=== PATIENT | male | born 1950 | race Caucasian/White ===

== ENCOUNTER 2016-06-04 18:50 | Inpatient (IN) | payer MEDICARE, OTHER ==
[~2016-06-04] VITALS: Ht 165.1 cm; Wt 49.9 kg
[2016-06-04] MEDS ORDERED: ALBUTEROL FS 2.5 MG/3 ML VIAL.NEB NEB ONE (19:00)
[2016-06-04] MEDS ORDERED: Magnesium 1GM/D5W 100ML PREMIX 200 ML IV ONE ×2 (19:05→19:31)
[2016-06-04] MEDS ORDERED: DEXAMETHASONE SOD PHOSPHATE 10 MG/ML VIAL ONE (19:19)
[2016-06-04] MEDS ORDERED: IV SET PRIMARY 1 EA INFUS.SET MC ONE ×2 (19:20→19:31)
[2016-06-04] MEDS ORDERED: IV NS 0.9% 2,000 ML ONE (19:20)
[2016-06-04] MEDS ORDERED: ALBUTEROL FS 2.5 MG/3 ML VIAL.NEB ONE (19:23)
[2016-06-04 19:29] LABS: ANION GAP 17 (5-14); CALCIUM, SERUM 8.4 mg/dL (8.5-10.1); CARBON DIOXIDE 23 mmol/L (21-32); CHLORIDE 87 mmol/L (98-107); CREATININE 1.2 mg/dL (0.6-1.3); GFR 61 mL/min (>60); GLUCOSE 215 mg/dL (74-106); POTASSIUM 3.8 mmol/L (3.5-5.1); SODIUM SERUM 123 mmol/L (136-145); UREA NITROGEN, BLOOD 14 mg/dL (7-18)
[2016-06-04] MEDS ORDERED: IPRATROPIUM NEB FS 0.5 MG/2.5 ML AMPUL.NEB NEB ONE (19:30)
[2016-06-04] MEDS ORDERED: IV NS 0.9% 1,000 ML BAG IV ONE ×2 (19:30)
[2016-06-04] MEDS ORDERED: DEXAMETHASONE SOD PHOSPHATE 10 MG/ML VIAL IV ONE (19:30)
[2016-06-04] MEDS ORDERED: ONDANSETRON HCL/PF 4 MG/2 ML VIAL ONE (19:31)
[2016-06-04] MEDS ORDERED: MORPHINE SULFATE INJ 4 MG/ML DISP.SYRIN ONE ×2 (19:31→19:51)
[2016-06-04] MEDS ORDERED: IPRATROPIUM NEB FS 0.5 MG/2.5 ML AMPUL.NEB ONE (19:32)
[2016-06-04 19:37] LABS: TROPONIN I 0.031 ng/mL (0.00-0.056)
[2016-06-04 19:41] LABS: BASOPHILS # (AUTO) 0.1 /CMM (0.0-0.2); BASOPHILS % (AUTO) 0.4 % (0.0-2.0); DIFF TOTAL % 100 %; EOSINOPHILS # (AUTO) 0.1 /CMM (0.0-0.7); EOSINOPHILS % (AUTO) 0.5 % (0.0-6.0); HEMATOCRIT 37 % (39-51); HEMOGLOBIN 12.3 g/dL (13.5-17.5); LYMPHOCYTES # (AUTO) 0.8 /CMM (0.8-4.8); LYMPHOCYTES % (AUTO) 3.4 % (20.0-44.0); MEAN CORPUSCULAR HEMOGLOBIN 29 PG (26.0-33.0); MEAN CORPUSCULAR HGB CONC 33 g/dl (31.0-36.0); MEAN CORPUSCULAR VOLUME 86 fL (80-96); MONOCYTES % (AUTO) 4.2 % (2.0-12.0); NEUTROPHILS # (AUTO) 21.9 /CMM (1.8-8.9); NEUTROPHILS % (AUTO) 91.5 % (43.0-81.0); PLATELET COUNT (AUTO) 350 /CMM (150-450); RED BLOOD CELL COUNT(AUTO) 4.28 MIL/uL (4.5-6.0); WHITE BLOOD COUNT (AUTO) 23.9 K/uL (4.3-11.0)
[2016-06-04 19:46] LABS: INR 1.14 (0.87-1.13); PROTHROMBIN TIME 12.3 SECS (9.5-12.7)
[2016-06-04] MEDS ORDERED: ONDANSETRON HCL/PF 4 MG/2 ML VIAL IV ONE (20:00)
[2016-06-04] MEDS ORDERED: MORPHINE SULFATE INJ 2 MG/ML DISP.SYRIN IV ONE (20:00)
[2016-06-04] MEDS ORDERED: MORPHINE SULFATE INJ 4 MG/ML DISP.SYRIN IV ONE (20:00)
[2016-06-04 20:01] LABS: LACTIC ACID 5.6 mmol/L (0.4-2.0)
[2016-06-04 20:09] LABS: *LACTIC ACID REFLEX FLAG YES
[2016-06-04] MEDS ORDERED: PIPERACILLIN /TAZOBACTAM 3.375 G in IV D5W 50 ML IV ONE (21:00)
[2016-06-04] MEDS ORDERED: PIPERACILLIN /TAZOBACTAM 3.375 G VIAL IV ONE (21:07)
[2016-06-04] MEDS ORDERED: IV SET PRIMARY PUMP SET 1 EA INFUS.SET MC ONE ×2 (21:07→23:11)
[2016-06-04] MEDS ORDERED: IV D5W 50 ML IV ONE (21:07)
[2016-06-04 21:26] LABS: KETONES,URINE NEGATIVE (NEGATIVE); LEUKOCYTE ESTERASE ,URINE NEGATIVE (NEGATIVE)
[2016-06-04 21:28] LABS: BILIRUBIN,DIRECT 0.2 mg/dL (0.0-0.2); BILIRUBIN,TOTAL 0.5 mg/dL (0.2-1.0)
[2016-06-04] MEDS ORDERED: ALBUTEROL FS 2.5 MG/0.5 ML VIAL.NEB NEB ONE (21:30)
[2016-06-04] MEDS ORDERED: MORPHINE SULFATE INJ 4 MG/ML DISP.SYRIN IV PRN (21:30)
[2016-06-04 21:34] LABS: ABG BASE EXCESS -6.8 mmol/L; ABG HCO3 20.2 mmol/L; ABG PCO2 46.4 mmHg (35.0-45.0); ABG PH 7.256 (7.350-7.450); ABG PO2 32.4 mmHg (75.0-100.0); ABG TOTAL HEMOGLOBIN 11.8 G/dL (13.5-18.0); ALLEN TEST Pass; O2Hb 46.1 % (94.0-97.0)
[2016-06-04 21:38] LABS: ADD UA MICROSCOPIC YES
[2016-06-04 21:41] LABS: CANNABINOID, URINE NEGATIVE (NEGATIVE); PHENCYCLIDINE SCREEN,URINE NEGATIVE (NEGATIVE)
[2016-06-04 21:42] LABS: ADD URINE CULTURE YES; HYALINE CASTS, URINE Rare /LPF (None Seen); WBC,URINE 0-2 /HPF (0-3)
[2016-06-04 21:55] VITALS: BP 97/49
[2016-06-04] MEDS ORDERED: IV LR 1000 ML 1,000 ML IV ONE ×2 (22:00→23:30)
[2016-06-04] MEDS ORDERED: ALBUTEROL FS 2.5 MG/3 ML VIAL.NEB NEB SCH (22:00)
[2016-06-04 22:05] LABS: ANISOCYTOSIS 1+; BAND % (MANUAL) 7 % (0.0-5.0); EOSINOPHILS % (MANUAL) 1 % (0-4); LYMPHOCYTES % (MANUAL) 9 % (16-48); PLATELET ESTIMATE ADEQUATE
[2016-06-04] MEDS ORDERED: ONDANSETRON HCL/PF 4 MG/2 ML VIAL IVP PRN (22:30)
[2016-06-04] MEDS ORDERED: MAG HYDROX/AL HYDROX/SIMETH 30 ML UDC PO PRN (22:30)
[2016-06-04] MEDS ORDERED: MAGNESIUM HYDROXIDE 30 ML UDC PO PRN (22:30)
[2016-06-04] MEDS ORDERED: ACETAMINOPHEN 325 MG TABLET PO PRN (22:30)
[2016-06-04] MEDS ORDERED: Z GUARD REMEDY 2 OZ OINT TP PRN (22:30)
[2016-06-04 22:56] LABS: CALCIUM, SERUM 7.7 mg/dL (8.5-10.1); POTASSIUM 4.4 mmol/L (3.5-5.1)
[2016-06-05] MEDS ORDERED: MORPHINE SULFATE INJ 2 MG/ML DISP.SYRIN ONE ×2 (00:03→05:26)
[2016-06-05] MEDS: MORPHINE SULFATE INJ 2 MG/ML DISP.SYRIN IV PRN ×5 (00:08→21:35)
[2016-06-05] MEDS ORDERED: ZOLPIDEM TARTRATE 5 MG TABLET ONE (02:16)
[2016-06-05] MEDS: ZOLPIDEM TARTRATE 5 MG TABLET PO PRN (02:20)
[2016-06-05] MEDS ORDERED: IV NS 0.9% 1,000 ML ONE (03:04)
[2016-06-05] MEDS: IV NS 0.9% 1,000 ML IV PRN ×2 (03:08→13:34)
[2016-06-05] MEDS ORDERED: LORAZEPAM 1 MG TABLET PO PRN (05:30)
[2016-06-05 06:42] LABS: BASOPHILS % (AUTO) 0.1 % (0.0-2.0); DIFF TOTAL % 100 %; HEMATOCRIT 29 % (39-51); HEMOGLOBIN 9.6 g/dL (13.5-17.5); LYMPHOCYTES # (AUTO) 0.5 /CMM (0.8-4.8); LYMPHOCYTES % (AUTO) 4.5 % (20.0-44.0); MEAN CORPUSCULAR HEMOGLOBIN 29 PG (26.0-33.0); MEAN CORPUSCULAR HGB CONC 33 g/dl (31.0-36.0); MEAN CORPUSCULAR VOLUME 87 fL (80-96); MONOCYTES % (AUTO) 9.3 % (2.0-12.0); NEUTROPHILS # (AUTO) 9.6 /CMM (1.8-8.9); NEUTROPHILS % (AUTO) 86.1 % (43.0-81.0); PLATELET COUNT (AUTO) 286 /CMM (150-450); RED BLOOD CELL COUNT(AUTO) 3.29 MIL/uL (4.5-6.0); WHITE BLOOD COUNT (AUTO) 11.2 K/uL (4.3-11.0)
[2016-06-05 07:16] LABS: PHOSPHORUS 3.7 mg/dL (2.5-4.9); POTASSIUM 3.6 mmol/L (3.5-5.1)
[2016-06-05 07:25] LABS: ALBUMIN 3.1 g/dL (3.4-5.0)
[2016-06-05] MEDS ORDERED: OXYC30TA2 PO (07:49)
[2016-06-05] MEDS ORDERED: IPRA12.9 IH (07:49)
[2016-06-05] MEDS ORDERED: OXYC80TA PO (07:49)
[2016-06-05] MEDS ORDERED: COMBIVENT INH (07:49)
[2016-06-05] MEDS: PANTOPRAZOLE 40 MG TABLET.DR PO SCH (09:04)
[2016-06-05] MEDS: HYDROCODONE/APAP 5/325MG 1 EACH TABLET PO PRN (09:04)
[2016-06-05] MEDS ORDERED: SECONDARY IV SET 1 EA INFUS.SET MC ONE (09:07)
[2016-06-05] MEDS: methylPREDNISolone SOD SUCC 125 MG/2ML VIAL IV SCH ×4 (09:10→21:35)
[2016-06-05] MEDS: PIPERACILLIN /TAZOBACTAM 3.375 G in IV D5W 50 ML IV SCH ×3 (09:10→17:22)
[2016-06-05 10:37] LABS: THYROID STIMULATING HORMONE 0.859 uIU/mL (0.358-3.74)
[2016-06-05] MEDS: POTASSIUM CHLORIDE 20 MEQ TAB.PRT.SR PO SCH ×3 (11:26→13:34)
[2016-06-05 12:00] VITALS: BP 102/67
[2016-06-05] MEDS: ALBUTEROL FS 2.5 MG/3 ML VIAL.NEB NEB SCH ×2 (13:30→19:30)
[2016-06-05] MEDS: IPRATROPIUM NEB FS 0.5 MG/2.5 ML AMPUL.NEB NEB SCH ×2 (13:30→19:30)
[2016-06-05 16:00] VITALS: BP 115/72
[2016-06-05 17:04] LABS: URINE SODIUM, RANDOM 27 mmol/l (40-220)
[2016-06-05 18:00] VITALS: BP 115/72
[2016-06-05 22:00] VITALS: BP 104/61
[2016-06-06] MEDS: PIPERACILLIN /TAZOBACTAM 3.375 G in IV D5W 50 ML IV SCH ×4 (00:02→18:00)
[2016-06-06] MEDS: ALBUTEROL FS 2.5 MG/3 ML VIAL.NEB NEB SCH ×4 (01:30→20:20)
[2016-06-06] MEDS: IPRATROPIUM NEB FS 0.5 MG/2.5 ML AMPUL.NEB NEB SCH ×4 (01:30→20:20)
[2016-06-06] MEDS: MORPHINE SULFATE INJ 2 MG/ML DISP.SYRIN IV PRN ×4 (01:46→21:57)
[2016-06-06 06:34] LABS: BASOPHILS % (AUTO) 0.1 % (0.0-2.0); DIFF TOTAL % 100 %; HEMATOCRIT 25 % (39-51); HEMOGLOBIN 8.5 g/dL (13.5-17.5); LYMPHOCYTES # (AUTO) 0.5 /CMM (0.8-4.8); LYMPHOCYTES % (AUTO) 4.4 % (20.0-44.0); MEAN CORPUSCULAR HEMOGLOBIN 29 PG (26.0-33.0); MEAN CORPUSCULAR HGB CONC 34 g/dl (31.0-36.0); MEAN CORPUSCULAR VOLUME 87 fL (80-96); MONOCYTES # (AUTO) 0.7 /CMM (0.1-1.30); MONOCYTES % (AUTO) 6.5 % (2.0-12.0); NEUTROPHILS # (AUTO) 9.4 /CMM (1.8-8.9); PLATELET COUNT (AUTO) 279 /CMM (150-450); RED BLOOD CELL COUNT(AUTO) 2.89 MIL/uL (4.5-6.0); WHITE BLOOD COUNT (AUTO) 10.5 K/uL (4.3-11.0)
[2016-06-06 06:43] LABS: INR 1.16 (0.87-1.13); PROTHROMBIN TIME 12.6 SECS (9.5-12.7)
[2016-06-06 06:47] LABS: TROPONIN I 0.018 ng/mL (0.00-0.056)
[2016-06-06 06:48] LABS: ALBUMIN 3.1 g/dL (3.4-5.0); BILIRUBIN,TOTAL 0.6 mg/dL (0.2-1.0); CALCIUM, SERUM 8.4 mg/dL (8.5-10.1); CREATININE 0.8 mg/dL (0.6-1.3); PHOSPHORUS 2.8 mg/dL (2.5-4.9); POTASSIUM 3.8 mmol/L (3.5-5.1); TOTAL PROTEIN, SERUM 6.5 g/dL (6.4-8.2)
[2016-06-06 06:52] LABS: THYROID STIMULATING HORMONE 0.273 uIU/mL (0.358-3.74); URIC ACID 2.3 mg/dL (2.6-7.2)
[2016-06-06] MEDS: PANTOPRAZOLE 40 MG TABLET.DR PO SCH (07:30)
[2016-06-06 08:00] VITALS: BP 135/67
[2016-06-06] MEDS: IV NS 0.9% 1,000 ML IV PRN (10:58)
[2016-06-06] MEDS: methylPREDNISolone SOD SUCC 125 MG/2ML VIAL IV SCH ×4 (10:59→21:57)
[2016-06-06] MEDS ORDERED: BACITRACIN 50000 UNITS/VIAL ONE (13:22)
[2016-06-06] MEDS: NEOMY SULF/BACITRAC ZN/POLY 15 GM TUBE TP SCH (15:27)
[2016-06-06 16:00] VITALS: BP 125/64
[2016-06-06] MEDS ORDERED: BLOOD IV SET 1 EA INFUS.SET MC ONE (17:27)
[2016-06-06] MEDS ORDERED: IV NS 0.9% 250 ML IV ONE (17:27)
[2016-06-06] MEDS ORDERED: FENTANYL PF 100MCG/2ML AMPUL ONE (17:56)
[2016-06-06] MEDS ORDERED: MIDAZOLAM HCL 2 MG/2ML VIAL ONE (17:56)
[2016-06-06] MEDS ORDERED: BUPIVACAINE 0.5 % PF 150 MG/30 ML VIAL ONE (19:11)
[2016-06-06 20:00] VITALS: BP 135/79
[2016-06-06 21:28] LABS: HEMOGLOBIN 10.1 g/dL (13.5-17.5)
[2016-06-06 22:00] VITALS: BP 135/79
[2016-06-06] MEDS: ZOLPIDEM TARTRATE 5 MG TABLET PO PRN (23:02)
[2016-06-07] MEDS: PIPERACILLIN /TAZOBACTAM 3.375 G in IV D5W 50 ML IV SCH ×4 (00:18→17:14)
[2016-06-07] MEDS: HYDROCODONE/APAP 5/325MG 1 EACH TABLET PO PRN ×4 (00:30→22:35)
[2016-06-07] MEDS: ALBUTEROL FS 2.5 MG/3 ML VIAL.NEB NEB SCH ×4 (01:34→19:38)
[2016-06-07] MEDS: IPRATROPIUM NEB FS 0.5 MG/2.5 ML AMPUL.NEB NEB SCH ×4 (01:34→19:38)
[2016-06-07] MEDS: MORPHINE SULFATE INJ 2 MG/ML DISP.SYRIN IV PRN ×4 (02:30→20:27)
[2016-06-07] MEDS ORDERED: SECONDARY IV SET 1 EA INFUS.SET MC ONE ×2 (03:04→13:47)
[2016-06-07] MEDS: ANCEF 1 GM/50 ML D5W IV SCH ×6 (03:08→17:14)
[2016-06-07] MEDS: PANTOPRAZOLE 40 MG TABLET.DR PO SCH (06:50)
[2016-06-07 07:10] LABS: ALBUMIN 2.7 g/dL (3.4-5.0); BILIRUBIN,TOTAL 0.5 mg/dL (0.2-1.0); CREATININE 0.9 mg/dL (0.6-1.3); PHOSPHORUS 2.9 mg/dL (2.5-4.9); POTASSIUM 3.6 mmol/L (3.5-5.1); TOTAL PROTEIN, SERUM 5.7 g/dL (6.4-8.2)
[2016-06-07 07:39] LABS: DIFF TOTAL % 100 %; HEMATOCRIT 25 % (39-51); HEMOGLOBIN 8.4 g/dL (13.5-17.5); LYMPHOCYTES # (AUTO) 0.4 /CMM (0.8-4.8); LYMPHOCYTES % (AUTO) 3.2 % (20.0-44.0); MEAN CORPUSCULAR HEMOGLOBIN 30 PG (26.0-33.0); MEAN CORPUSCULAR HGB CONC 34 g/dl (31.0-36.0); MEAN CORPUSCULAR VOLUME 89 fL (80-96); MONOCYTES # (AUTO) 1.1 /CMM (0.1-1.30); MONOCYTES % (AUTO) 9.3 % (2.0-12.0); NEUTROPHILS # (AUTO) 10.4 /CMM (1.8-8.9); NEUTROPHILS % (AUTO) 87.5 % (43.0-81.0); PLATELET COUNT (AUTO) 247 /CMM (150-450); RED BLOOD CELL COUNT(AUTO) 2.79 MIL/uL (4.5-6.0); WHITE BLOOD COUNT (AUTO) 11.9 K/uL (4.3-11.0)
[2016-06-07 08:00] VITALS: BP 105/72
[2016-06-07] MEDS: IV NS 0.9% 1,000 ML IV PRN (08:05)
[2016-06-07] MEDS: DOCUSATE SODIUM 100 MG CAPSULE PO SCH (08:07)
[2016-06-07 08:08] LABS: VIT D, 25-HYDROXY 12.3 ng/mL (30.0-100.0)
[2016-06-07] MEDS: methylPREDNISolone SOD SUCC 125 MG/2ML VIAL IV SCH ×4 (08:08→20:27)
[2016-06-07] MEDS: NEOMY SULF/BACITRAC ZN/POLY 15 GM TUBE TP SCH (08:09)
[2016-06-07 13:17] VITALS: BP 115/68
[2016-06-07] MEDS: SOD FERRIC GLUC 125 MG in IV NS 0.9% 100 ML IV SCH (13:51)
[2016-06-07 16:00] VITALS: BP 137/82
[2016-06-07 20:00] VITALS: BP 114/71
[2016-06-07] MEDS ORDERED: ENOXAPARIN SODIUM 40 MG/0.4 ML DISP.SYRIN SQ SCH (21:00)
[2016-06-07 22:00] VITALS: BP 114/71
[2016-06-08] MEDS: PIPERACILLIN /TAZOBACTAM 3.375 G in IV D5W 50 ML IV SCH ×4 (00:17→17:17)
[2016-06-08] MEDS: MORPHINE SULFATE INJ 2 MG/ML DISP.SYRIN IV PRN ×4 (00:33→17:18)
[2016-06-08] MEDS: IPRATROPIUM NEB FS 0.5 MG/2.5 ML AMPUL.NEB NEB SCH ×4 (01:16→19:30)
[2016-06-08] MEDS: ALBUTEROL FS 2.5 MG/3 ML VIAL.NEB NEB SCH ×4 (01:17→19:30)
[2016-06-08] MEDS ORDERED: IV SET PRIMARY PUMP SET 1 EA INFUS.SET MC ONE (02:04)
[2016-06-08] MEDS ORDERED: IV NS 0.9% 250 ML IV ONE (02:04)
[2016-06-08] MEDS: HYDROCODONE/APAP 5/325MG 1 EACH TABLET PO PRN ×2 (02:34→20:59)
[2016-06-08 06:36] LABS: DIFF TOTAL % 100 %; EOSINOPHILS % (AUTO) 0.1 % (0.0-6.0); HEMATOCRIT 25 % (39-51); HEMOGLOBIN 8.5 g/dL (13.5-17.5); LYMPHOCYTES # (AUTO) 0.6 /CMM (0.8-4.8); LYMPHOCYTES % (AUTO) 5.8 % (20.0-44.0); MEAN CORPUSCULAR HEMOGLOBIN 30 PG (26.0-33.0); MEAN CORPUSCULAR HGB CONC 34 g/dl (31.0-36.0); MEAN CORPUSCULAR VOLUME 89 fL (80-96); MONOCYTES # (AUTO) 0.9 /CMM (0.1-1.30); MONOCYTES % (AUTO) 9.4 % (2.0-12.0); NEUTROPHILS # (AUTO) 8.3 /CMM (1.8-8.9); NEUTROPHILS % (AUTO) 84.7 % (43.0-81.0); PLATELET COUNT (AUTO) 255 /CMM (150-450); RED BLOOD CELL COUNT(AUTO) 2.85 MIL/uL (4.5-6.0); WHITE BLOOD COUNT (AUTO) 9.8 K/uL (4.3-11.0)
[2016-06-08 07:11] LABS: ALBUMIN 2.8 g/dL (3.4-5.0); BILIRUBIN,TOTAL 0.3 mg/dL (0.2-1.0); CALCIUM, SERUM 8.2 mg/dL (8.5-10.1); CREATININE 0.9 mg/dL (0.6-1.3); PHOSPHORUS 2.7 mg/dL (2.5-4.9); POTASSIUM 3.7 mmol/L (3.5-5.1); TOTAL PROTEIN, SERUM 6.1 g/dL (6.4-8.2)
[2016-06-08] MEDS: PANTOPRAZOLE 40 MG TABLET.DR PO SCH ×2 (07:30→09:42)
[2016-06-08 08:00] VITALS: BP_SYST 148; BP_SYST 151; BP_DIAS 84; BP_DIAS 91
[2016-06-08] MEDS: methylPREDNISolone SOD SUCC 125 MG/2ML VIAL IV SCH ×3 (08:10→12:05)
[2016-06-08] MEDS: DOCUSATE SODIUM 100 MG CAPSULE PO SCH (08:11)
[2016-06-08] MEDS ORDERED: METHIMAZOLE (5MG) 5 MG TABLET PO SCH (09:00)
[2016-06-08] MEDS: NEOMY SULF/BACITRAC ZN/POLY 15 GM TUBE TP SCH (09:47)
[2016-06-08] MEDS ORDERED: CHOLECALCIFEROL 1,000 UNIT TABLET (VIT D3) PO SCH (11:00)
[2016-06-08] MEDS ORDERED: SECONDARY IV SET 1 EA INFUS.SET MC ONE ×2 (11:58→14:12)
[2016-06-08] MEDS: SOD FERRIC GLUC 125 MG in IV NS 0.9% 100 ML IV SCH (14:52)
[2016-06-08 16:43] VITALS: BP 119/67
[2016-06-08] MEDS ORDERED: AMOX-430 PO (17:06)
[2016-06-08] MEDS ORDERED: DOCU-25 PO (17:06)
[2016-06-08] MEDS ORDERED: ALBUT2 NEB (17:06)
[2016-06-08] MEDS ORDERED: METH5TAB70 PO (17:06)
[2016-06-08] MEDS ORDERED: PRED20TA PO (17:06)
[2016-06-08] MEDS ORDERED: CHOL100044 PO (17:06)
[2016-06-08] MEDS ORDERED: ENOX40DI SQ (17:11)
[2016-06-09] MEDS ORDERED: predniSONE 20 MG TABLET PO SCH (09:00)
== END 2016-06-08 21:30 | DRG 481 ==
LOC: ER 18:53 → MED 21:12 → TELE 21:48 → MED 22:28
PROVIDERS: ADMIT Internal Medicine; ATTEND Internal Medicine
PROC: 30233N1 Transfusion of Nonautologous Red Blood Cells into Peripheral Vein, Percutaneous Approach (ICD-10-PCS; 2016-06-06)
PROC: 0QS706Z Reposition Left Upper Femur with Intramedullary Internal Fixation Device, Open Approach (ICD-10-PCS; principal; 2016-06-06 18:37)
DX: S72.142A Displaced intertrochanteric fracture of left femur, initial encounter for closed fracture (principal); J44.1 Chronic obstructive pulmonary disease with (acute) exacerbation; E22.2 Syndrome of inappropriate secretion of antidiuretic hormone; E87.2 Acidosis; R64 Cachexia; E46 Unspecified protein-calorie malnutrition; F11.20 Opioid dependence, uncomplicated; J98.11 Atelectasis; R65.10 Systemic inflammatory response syndrome (SIRS) of non-infectious origin without acute organ dysfunction; W18.09XA Striking against other object with subsequent fall, initial encounter; Y92.009 Unspecified place in unspecified non-institutional (private) residence as the place of occurrence of the external cause; E86.1 Hypovolemia; E86.0 Dehydration; R73.9 Hyperglycemia, unspecified; D64.9 Anemia, unspecified; K59.09 Other constipation; E55.9 Vitamin D deficiency, unspecified; E03.9 Hypothyroidism, unspecified; D72.825 Bandemia; Z87.01 Personal history of pneumonia (recurrent); Z99.81 Dependence on supplemental oxygen; Z87.891 Personal history of nicotine dependence
CPT/HCPCS: 36415; 36600; 71010-TC; 72170-TC; 73020; 73550-TC; 80048-TC; 80053-TC; 80061-TC; 80305; 81000-TC; 82040-TC; 82247-TC; 82248-TC; 82306; 82652; 82728-TC; 82803-TC; 83540-TC; 83605-TC; 83735-TC; 83880; 83935-TC; 83970; 84100-TC; 84300-TC; 84439-TC; 84443-TC; 84484-TC; 84550-TC; 85025-TC; 85027-TC; 85610-TC; 85730-TC; 86850-TC; 86901; 86921-TC; 87040-TC; 87081-TC; 87086-TC; 93307-TC; 94799-TC; 97001-TC; 97110-TC; 97116-TC; 97530-TC; A4606; A6209; A6402; C1713; J0690; J1100; J1650; J2250; J2270; J2405; J2543; J2916; J2930; J3010; J3475; J3490; J7030; J7050; J7060; J7120; P9016-BL; Z7610

== ENCOUNTER 2016-06-11 12:46 | Emergency (ER) | payer MEDICARE, OTHER ==
[~2016-06-11] VITALS: Ht 177.8 cm; Wt 56.7 kg
[~2016-06-11 12:46] MED LIST: ALBUT2 NEB; AMOX-430 PO; CHOL100044 PO; COMBIVENT INH; DOCU-25 PO; ENOX40DI SQ; IPRA12.9 IH; METH5TAB70 PO; OXYC30TA2 PO; OXYC80TA40 PO; PRED20TA PO
[2016-06-11] MEDS ORDERED: AMOX-430 PO (13:02)
[2016-06-11 13:19] LABS: BASOPHILS # (AUTO) 0.5 /CMM (0.0-0.2); BASOPHILS % (AUTO) 2.8 % (0.0-2.0); DIFF TOTAL % 100 %; EOSINOPHILS # (AUTO) 0.7 /CMM (0.0-0.7); EOSINOPHILS % (AUTO) 3.5 % (0.0-6.0); HEMATOCRIT 27 % (39-51); HEMOGLOBIN 9.3 g/dL (13.5-17.5); LYMPHOCYTES # (AUTO) 2.1 /CMM (0.8-4.8); LYMPHOCYTES % (AUTO) 10.7 % (20.0-44.0); MEAN CORPUSCULAR HEMOGLOBIN 30 PG (26.0-33.0); MEAN CORPUSCULAR HGB CONC 34 g/dl (31.0-36.0); MEAN CORPUSCULAR VOLUME 88 fL (80-96); MONOCYTES # (AUTO) 0.6 /CMM (0.1-1.30); MONOCYTES % (AUTO) 3.1 % (2.0-12.0); NEUTROPHILS # (AUTO) 15.3 /CMM (1.8-8.9); NEUTROPHILS % (AUTO) 79.9 % (43.0-81.0); PLATELET COUNT (AUTO) 361 /CMM (150-450); RED BLOOD CELL COUNT(AUTO) 3.07 MIL/uL (4.5-6.0); WHITE BLOOD COUNT (AUTO) 19.2 K/uL (4.3-11.0)
[2016-06-11 15:57] LABS: CALCIUM, SERUM 8.3 mg/dL (8.5-10.1); CREATININE 0.7 mg/dL (0.6-1.3); POTASSIUM 3.6 mmol/L (3.5-5.1)
[2016-06-11 16:01] LABS: KETONES,URINE Negative (NEGATIVE); LEUKOCYTE ESTERASE ,URINE Negative (NEGATIVE); PH,URINE 5.5 (5.0-8.0)
[2016-06-11 16:03] LABS: ALBUMIN 3.1 g/dL (3.4-5.0); BILIRUBIN,TOTAL 0.9 mg/dL (0.2-1.0); TOTAL PROTEIN, SERUM 6.4 g/dL (6.4-8.2)
[2016-06-11 16:11] LABS: ADD UA MICROSCOPIC YES
[2016-06-11 16:15] LABS: ADD URINE CULTURE NO; WBC,URINE 0-2 /HPF (0-3)
[2016-06-11 16:52] VITALS: BP 125/84
== END 2016-06-11 17:06 | disposition home or self-care (01) ==
LOC: ER 12:48
DX: D64.9 Anemia, unspecified (principal); J18.9 Pneumonia, unspecified organism; D72.829 Elevated white blood cell count, unspecified; J44.9 Chronic obstructive pulmonary disease, unspecified
CPT/HCPCS: 36415; 71010; 80053; 81001; 85025; 99285; A4606; 81000-TC; Z7610

== ENCOUNTER 2016-07-12 12:50 | Emergency (ER) | payer MEDICARE, OTHER ==
[~2016-07-12] VITALS: Ht 165.1 cm; Wt 44.0 kg
[2016-07-12] MEDS ORDERED: ENOX40DI SQ (13:08)
[2016-07-12] MEDS ORDERED: ALBU2.5V13 IH (13:08)
[2016-07-12] MEDS ORDERED: OXYC30TA2 PO (13:08)
[2016-07-12] MEDS ORDERED: OXYC80TA40 PO (13:08)
[2016-07-12] MEDS ORDERED: CHOL100044 PO (13:08)
[2016-07-12] MEDS ORDERED: MULT1CAP34 PO (13:08)
[2016-07-12] MEDS ORDERED: METH5TAB70 PO (13:08)
[2016-07-12] MEDS ORDERED: IPRA12.9 INH (13:08)
[2016-07-12] MEDS ORDERED: ASCO500T9 PO (13:08)
[2016-07-12] MEDS ORDERED: PRED20TA PO (13:08)
[2016-07-12] MEDS ORDERED: [UNRECOGNIZED DRUG - CODE] PO (13:08)
[2016-07-12] MEDS ORDERED: ONDANSETRON HCL/PF - ER 4 MG/2 ML VIAL IV ONE (13:30)
[2016-07-12] MEDS ORDERED: MORPHINE SULFATE INJ 2 MG/ML DISP.SYRIN IV ONE (13:30)
[2016-07-12] MEDS ORDERED: MORPHINE SULFATE INJ 4 MG/ML DISP.SYRIN ONE (13:40)
[2016-07-12] MEDS ORDERED: ONDANSETRON HCL/PF 4 MG/2 ML VIAL ONE (13:40)
[2016-07-12 13:49] LABS: BASOPHILS # (AUTO) 0.6 /CMM (0.0-0.2); EOSINOPHILS # (AUTO) 0.1 /CMM (0.0-0.7); EOSINOPHILS % (AUTO) 0.5 % (0.0-6.0); HEMATOCRIT 33 % (39-51); HEMOGLOBIN 10.8 g/dL (13.5-17.5); LYMPHOCYTES # (AUTO) 1.2 /CMM (0.8-4.8); LYMPHOCYTES % (AUTO) 10.8 % (20.0-44.0); MEAN CORPUSCULAR HEMOGLOBIN 28 PG (26.0-33.0); MEAN CORPUSCULAR HGB CONC 33 g/dl (31.0-36.0); MEAN CORPUSCULAR VOLUME 85 fL (80-96); MONOCYTES # (AUTO) 0.5 /CMM (0.1-1.30); MONOCYTES % (AUTO) 4.4 % (2.0-12.0); NEUTROPHILS # (AUTO) 8.4 /CMM (1.8-8.9); PLATELET COUNT (AUTO) 361 /CMM (150-450); WHITE BLOOD COUNT (AUTO) 10.8 K/uL (4.3-11.0)
[2016-07-12 13:51] LABS: BASOPHILS % (AUTO) 5.3 % (0.0-2.0); DIFF TOTAL % 100 %
[2016-07-12 14:09] LABS: CALCIUM, SERUM 7.8 mg/dL (8.5-10.1); CREATININE 0.6 mg/dL (0.6-1.3); POTASSIUM 4.3 mmol/L (3.5-5.1)
[2016-07-12 14:13] LABS: INR 1.18 (0.87-1.13); PROTHROMBIN TIME 12.4 SECS (9.5-12.7)
[2016-07-12 14:14] LABS: ALBUMIN 2.1 g/dL (3.4-5.0); BILIRUBIN,DIRECT 0.1 mg/dL (0.0-0.2); BILIRUBIN,TOTAL 0.6 mg/dL (0.2-1.0); INDIRECT BILIRUBIN 0.5 mg/dL (0.0-1.1); TOTAL PROTEIN, SERUM 5.5 g/dL (6.4-8.2)
[2016-07-12] MEDS ORDERED: MORPHINE SULFATE INJ 2 MG/ML DISP.SYRIN ONE (15:54)
[2016-07-12] MEDS ORDERED: MORPHINE SULFATE INJ 4 MG/ML DISP.SYRIN IM ONE (16:00)
[2016-07-12 16:19] VITALS: BP 137/63
== END 2016-07-12 16:27 | disposition home or self-care (01) ==
LOC: ER 12:52
DX: M79.632 Pain in left forearm (principal); D64.9 Anemia, unspecified; R63.0 Anorexia; M79.89 Other specified soft tissue disorders; J44.9 Chronic obstructive pulmonary disease, unspecified; G89.29 Other chronic pain
CPT/HCPCS: 36415; 71010-TC; 80048-TC; 80076-TC; 85025-TC; 85730-TC; 93971-TC; A4606; J2270; J2405; Z7610

== ENCOUNTER 2016-07-16 23:32 | Inpatient (IN) | payer MEDICARE, OTHER ==
[~2016-07-16] VITALS: Ht 175.3 cm; Wt 45.4 kg
[~2016-07-16 23:32] MED LIST changes: +ALBU2.5V13 IH; -ALBUT2 NEB; -AMOX-430 PO; +ASCO500T9 PO; -COMBIVENT INH; -DOCU-25 PO; -IPRA12.9 IH; +IPRA12.9 INH; +MULT1CAP34 PO; +[UNRECOGNIZED DRUG - CODE] PO
[2016-07-16] MEDS ORDERED: IPRA12.9 INH (23:37)
[2016-07-16] MEDS ORDERED: IPRA0.2S49 IH (23:37)
[2016-07-16] MEDS ORDERED: IPRA0.2S49 NEB (23:37)
[2016-07-17] MEDS ORDERED: IV NS 0.9% 1,000 ML ONE ×3 (00:03→02:16)
[2016-07-17] MEDS ORDERED: IV SET PRIMARY 1 EA INFUS.SET MC ONE ×2 (00:03→01:14)
[2016-07-17 00:12] LABS: BASOPHILS # (AUTO) 0.3 /CMM (0.0-0.2); BASOPHILS % (AUTO) 1.1 % (0.0-2.0); DIFF TOTAL % 100 %; HEMATOCRIT 33 % (39-51); HEMOGLOBIN 10.7 g/dL (13.5-17.5); LYMPHOCYTES # (AUTO) 0.8 /CMM (0.8-4.8); MEAN CORPUSCULAR HEMOGLOBIN 27 PG (26.0-33.0); MEAN CORPUSCULAR HGB CONC 32 g/dl (31.0-36.0); MEAN CORPUSCULAR VOLUME 85 fL (80-96); MONOCYTES # (AUTO) 0.8 /CMM (0.1-1.30); MONOCYTES % (AUTO) 2.9 % (2.0-12.0); NEUTROPHILS # (AUTO) 23.9 /CMM (1.8-8.9); PLATELET COUNT (AUTO) 382 /CMM (150-450); RED BLOOD CELL COUNT(AUTO) 3.93 MIL/uL (4.5-6.0); WHITE BLOOD COUNT (AUTO) 25.6 K/uL (4.3-11.0)
[2016-07-17 00:23] LABS: CALCIUM, SERUM 8.3 mg/dL (8.5-10.1); CREATININE 1.6 mg/dL (0.6-1.3); POTASSIUM 4.4 mmol/L (3.5-5.1)
[2016-07-17] MEDS ORDERED: CEFTRIAXONE 1GM BAG (ER ONLY) 1 GM/50 ML PIGGYBACK IV ONE (01:00)
[2016-07-17] MEDS ORDERED: CEFTRIAXONE 1 G VIAL ONE (01:06)
[2016-07-17] MEDS ORDERED: IV SET PRIMARY PUMP SET 1 EA INFUS.SET MC ONE ×2 (01:07→03:01)
[2016-07-17] MEDS ORDERED: IV D5W 50 ML IV ONE (01:07)
[2016-07-17 01:11] LABS: KETONES,URINE NEGATIVE (NEGATIVE); LEUKOCYTE ESTERASE ,URINE NEGATIVE (NEGATIVE); PH,URINE 5.5 (5.0-8.0)
[2016-07-17 01:12] LABS: BAND % (MANUAL) 2 % (0.0-5.0); LYMPHOCYTES % (MANUAL) 3 % (16-48)
[2016-07-17 01:13] LABS: PLATELET ESTIMATE ADEQUATE
[2016-07-17 01:14] LABS: ADD UA MICROSCOPIC YES
[2016-07-17 01:19] LABS: ADD URINE CULTURE NO; RBC,URINE 0-2 /HPF (0-2); WBC,URINE 0-2 /HPF (0-3)
[2016-07-17 01:20] LABS: MUCUS,URINE Rare /LPF (None Seen)
[2016-07-17] MEDS ORDERED: IV NS 0.9% 1,000 ML BAG IV ONE ×3 (01:30→03:00)
[2016-07-17] MEDS ORDERED: oxyCODONE/APAP (5/325 MG) 1 UDTAB TABLET ONE (02:00)
[2016-07-17] MEDS ORDERED: MORPHINE SULFATE INJ 2 MG/ML DISP.SYRIN ONE (02:35)
[2016-07-17 02:50] VITALS: BP 104/62
[2016-07-17] MEDS ORDERED: MORPHINE SULFATE INJ 2 MG/ML DISP.SYRIN IV PRN ×2 (03:00→03:30)
[2016-07-17] MEDS ORDERED: oxyCODONE/APAP (5/325 MG) 1 UDTAB TABLET PO PRN (03:00)
[2016-07-17] MEDS ORDERED: IV NS 0.9% 1,000 ML IV PRN ×2 (03:16→05:23)
[2016-07-17] MEDS ORDERED: ACETAMINOPHEN 325 MG TABLET PO PRN (03:30)
[2016-07-17] MEDS ORDERED: Z GUARD REMEDY 2 OZ OINT TP PRN (03:30)
[2016-07-17] MEDS ORDERED: HYDROCODONE/APAP 5/325MG 1 EACH TABLET PO PRN (03:30)
[2016-07-17] MEDS ORDERED: ONDANSETRON HCL/PF 4 MG/2 ML VIAL IVP PRN (03:30)
[2016-07-17] MEDS ORDERED: MAGNESIUM HYDROXIDE 30 ML UDC PO PRN (03:30)
[2016-07-17] MEDS ORDERED: IPRATROPIUM NEB FS 0.5 MG/2.5 ML AMPUL.NEB NEB PRN (03:30)
[2016-07-17] MEDS ORDERED: ALBUTEROL FS 2.5 MG/0.5 ML VIAL.NEB NEB PRN (03:30)
[2016-07-17] MEDS ORDERED: MAG HYDROX/AL HYDROX/SIMETH 30 ML UDC PO PRN (03:30)
[2016-07-17] MEDS ORDERED: CEFTRIAXONE 1 G in IV D5W 50 ML IV SCH (04:00)
[2016-07-17 04:21] LABS: LACTIC ACID 4.8 mmol/L (0.4-2.0)
[2016-07-17 04:22] LABS: *LACTIC ACID REFLEX FLAG YES
[2016-07-17 07:22] LABS: BASOPHILS % (AUTO) 0.1 % (0.0-2.0); DIFF TOTAL % 100 %; HEMATOCRIT 27 % (39-51); HEMOGLOBIN 8.5 g/dL (13.5-17.5); LYMPHOCYTES # (AUTO) 1.1 /CMM (0.8-4.8); LYMPHOCYTES % (AUTO) 6.1 % (20.0-44.0); MEAN CORPUSCULAR HEMOGLOBIN 27 PG (26.0-33.0); MEAN CORPUSCULAR HGB CONC 32 g/dl (31.0-36.0); MEAN CORPUSCULAR VOLUME 85 fL (80-96); MONOCYTES # (AUTO) 0.7 /CMM (0.1-1.30); MONOCYTES % (AUTO) 3.8 % (2.0-12.0); NEUTROPHILS # (AUTO) 16.2 /CMM (1.8-8.9); PLATELET COUNT (AUTO) 283 /CMM (150-450); RED BLOOD CELL COUNT(AUTO) 3.13 MIL/uL (4.5-6.0)
[2016-07-17] MEDS ORDERED: PANTOPRAZOLE 40 MG TABLET.DR PO SCH (07:30)
[2016-07-17 07:54] LABS: ALBUMIN 1.8 g/dL (3.4-5.0); BILIRUBIN,TOTAL 0.4 mg/dL (0.2-1.0); CALCIUM, SERUM 7.5 mg/dL (8.5-10.1); CREATININE 1.3 mg/dL (0.6-1.3); PHOSPHORUS 3.5 mg/dL (2.5-4.9); POTASSIUM 4.8 mmol/L (3.5-5.1); TOTAL PROTEIN, SERUM 4.9 g/dL (6.4-8.2)
[2016-07-17 08:00] VITALS: BP 100/49
[2016-07-17] MEDS ORDERED: BOOST PLUS FOOD-VANILLA 237 ML BOX PO SCH (09:00)
[2016-07-17] MEDS ORDERED: MULTIVITAMINS,THERAPEUTIC 1 UDTAB TABLET PO SCH (09:00)
[2016-07-17] MEDS ORDERED: ENOXAPARIN SODIUM 40 MG/0.4 ML DISP.SYRIN SQ SCH (09:00)
[2016-07-17] MEDS ORDERED: CHOLECALCIFEROL 1,000 UNIT TABLET (VIT D3) PO SCH (09:00)
[2016-07-17] MEDS ORDERED: ASCORBIC ACID 500 MG TABLET PO SCH (09:00)
[2016-07-17] MEDS ORDERED: predniSONE 20 MG TABLET PO SCH (09:00)
[2016-07-17] MEDS ORDERED: METHIMAZOLE (5MG) 5 MG TABLET PO SCH (09:00)
[2016-07-17] MEDS ORDERED: Magnesium 1GM/D5W 100ML PREMIX 100 ML IV SCH (11:01)
[2016-07-17 18:25] LABS: THYROID STIMULATING HORMONE 2.151 uIU/mL (0.358-3.74)
[2016-07-18] MEDS ORDERED: CEFTRIAXONE 1 G in IV D5W 50 ML IV SCH ×2
== END 2016-07-17 12:52 | disposition left against medical advice (07) | DRG 871 ==
LOC: ER 23:33 → MEDSG1 07-17 02:31
PROVIDERS: ADMIT Contractor; ATTEND Contractor
DX: A41.9 Sepsis, unspecified organism (principal); N17.0 Acute kidney failure with tubular necrosis; E43 Unspecified severe protein-calorie malnutrition; E87.2 Acidosis; M25.552 Pain in left hip; E03.9 Hypothyroidism, unspecified; E83.42 Hypomagnesemia; E86.0 Dehydration; D63.8 Anemia in other chronic diseases classified elsewhere; M62.50 Muscle wasting and atrophy, not elsewhere classified, unspecified site; E88.09 Other disorders of plasma-protein metabolism, not elsewhere classified; Z96.642 Presence of left artificial hip joint; Z99.81 Dependence on supplemental oxygen; J44.9 Chronic obstructive pulmonary disease, unspecified; D72.829 Elevated white blood cell count, unspecified; W19.XXXA Unspecified fall, initial encounter; Y93.9 Activity, unspecified; Y92.009 Unspecified place in unspecified non-institutional (private) residence as the place of occurrence of the external cause; Y99.9 Unspecified external cause status; R65.20 Severe sepsis without septic shock
CPT/HCPCS: 36415; 71010-TC; 73510-TC; 80048-TC; 80053-TC; 80061-TC; 81000-TC; 82248-TC; 83605-TC; 83735-TC; 84100-TC; 84443-TC; 85025-TC; 87040-TC; 87081-TC; 87086-TC; A4606; A6402; J0696; J1650; J2270; J7030; J7060; Z7610

== ENCOUNTER 2016-07-20 11:18 | Inpatient (IN) | payer MEDICARE, OTHER ==
[~2016-07-20] VITALS: Ht 177.8 cm; Wt 47.6 kg
[~2016-07-20 11:18] MED LIST changes: +IPRA0.2S49 IH; +IPRA0.2S49 NEB
[2016-07-20] MEDS ORDERED: IV SET PRIMARY PUMP SET 1 EA INFUS.SET MC ONE ×2 (11:26→14:32)
[2016-07-20] MEDS ORDERED: IV NS 0.9% 0 ML ONE (11:26)
[2016-07-20] MEDS ORDERED: IV NS 0.9% 0 ML IV ONE (11:26)
[2016-07-20] MEDS ORDERED: IV SET PRIMARY 1 EA INFUS.SET MC ONE ×3 (11:26→12:52)
[2016-07-20] MEDS ORDERED: IV NS 0.9% 1,000 ML BAG IV ONE ×2 (11:30→14:00)
--- NOTE | 2016-07-20 11:30 | NUR ---
BBRA FROM HOME FOR WEAKNESS AND DIARRHEA X 2 DAYS. PT NOTED DEHYDRATED. AAOX3. LOW BP, OTHER VSS. NOTED SWELLING ON BOTH EXTREMITIES. SEEN BY MD FOR EVAL. CAREGIVER AT FOR INFO. SAFETY AND COMFORT MEASURES PROVIDED. WILL MONITOR.
[2016-07-20] MEDS ORDERED: IV NS 0.9% 500 ML IV ONE (11:37)
[2016-07-20] MEDS ORDERED: IV NS 0.9% 1,000 ML ONE (11:37)
--- NOTE | 2016-07-20 11:50 | NUR ---
DR. PENA AT FOR JACQUI.
--- NOTE | 2016-07-20 12:00 | NUR ---
UNABLE TO INITIATE IV ACCESS. MADE AWARE.
--- NOTE | 2016-07-20 12:15 | NUR ---
PT REFUSED TO GIVE URINE SAMPLE, PER PT HE DOES NOT HAVE ANY OUPUT.
--- NOTE | 2016-07-20 12:25 | NUR ---
MIDLINE NURSE AT BS.
[2016-07-20 12:29] LABS: BASOPHILS # (AUTO) 0.6 /CMM (0.0-0.2); BASOPHILS % (AUTO) 2.5 % (0.0-2.0); EOSINOPHILS % (AUTO) 0.1 % (0.0-6.0); HEMATOCRIT 32 % (39-51); HEMOGLOBIN 10.6 g/dL (13.5-17.5); LYMPHOCYTES # (AUTO) 0.7 /CMM (0.8-4.8); LYMPHOCYTES % (AUTO) 2.7 % (20.0-44.0); MEAN CORPUSCULAR HEMOGLOBIN 28 PG (26.0-33.0); MEAN CORPUSCULAR HGB CONC 33 g/dl (31.0-36.0); MEAN CORPUSCULAR VOLUME 84 fL (80-96); MONOCYTES # (AUTO) 0.5 /CMM (0.1-1.30); MONOCYTES % (AUTO) 1.9 % (2.0-12.0); NEUTROPHILS # (AUTO) 23.8 /CMM (1.8-8.9); NEUTROPHILS % (AUTO) 92.8 % (43.0-81.0); PLATELET COUNT (AUTO) 326 /CMM (150-450); RDW COEFFICIENT OF VARIATION 17.2 (11.5-15.0); RED BLOOD CELL COUNT(AUTO) 3.83 MIL/uL (4.5-6.0); WHITE BLOOD COUNT (AUTO) 25.6 K/uL (4.3-11.0)
[2016-07-20 12:40] LABS: CALCIUM, SERUM 7.4 mg/dL (8.5-10.1); CARBON DIOXIDE 23 mmol/L (21-32); CHLORIDE 104 mmol/L (98-107); CREATININE 1.2 mg/dL (0.6-1.3); GFR 61 mL/min (>60); GLUCOSE 108 mg/dL (74-106); POTASSIUM 4.2 mmol/L (3.5-5.1); SODIUM SERUM 140 mmol/L (136-145); UREA NITROGEN, BLOOD 37 mg/dL (7-18)
[2016-07-20] MEDS ORDERED: Combivent Respimat IH (12:44)
[2016-07-20 12:45] LABS: ALANINE AMINOTRANSFERASE 15 U/L (12-78); ALBUMIN 1.7 g/dL (3.4-5.0); ALKALINE PHOSPHATASE 110 U/L (46-116); ASPARTATE AMINOTRANSFERASE 23 U/L (15-37); BILIRUBIN,DIRECT 0.1 mg/dL (0.0-0.2); BILIRUBIN,TOTAL 0.5 mg/dL (0.2-1.0); TOTAL PROTEIN, SERUM 4.9 g/dL (6.4-8.2)
[2016-07-20 12:48] LABS: TROPONIN I < 0.017 ng/mL (0.00-0.056)
--- NOTE | 2016-07-20 12:50 | NUR ---
PT REFUSED CHEST XRAY, MADE AWARE
[2016-07-20] MEDS ORDERED: CEFTRIAXONE 1GM BAG (ER ONLY) 50 ML IV ONE ×2 (12:52→13:00)
[2016-07-20 12:54] LABS: LACTIC ACID 1.7 mmol/L (0.4-2.0)
[2016-07-20 12:55] LABS: INR 1.32 (0.87-1.13); PROTHROMBIN TIME 13.9 SECS (9.5-12.7)
[2016-07-20] MEDS ORDERED: BREO IH (12:58)
[2016-07-20 12:59] LABS: BAND % (MANUAL) 4 % (0.0-5.0); LYMPHOCYTES % (MANUAL) 2 % (16-48); MONOCYTES % (MANUAL) 6 % (0-11.0); NEUTROPHILS % (MANUAL) 88 (42-76)
[2016-07-20 13:00] LABS: PLATELET ESTIMATE ADEQUATE
--- NOTE | 2016-07-20 13:07 | NUR ---
PT MEDICATED ORDERED.
[2016-07-20] MEDS ORDERED: MORPHINE SULFATE INJ 2 MG/ML DISP.SYRIN ONE (13:21)
[2016-07-20] MEDS ORDERED: ONDANSETRON HCL/PF 4 MG/2 ML VIAL ONE (13:21)
[2016-07-20] MEDS ORDERED: MORPHINE SULFATE INJ 2 MG/ML DISP.SYRIN IV ONE (13:30)
[2016-07-20] MEDS ORDERED: ONDANSETRON HCL/PF 4 MG/2 ML VIAL IVP ONE (13:30)
--- NOTE | 2016-07-20 13:48 | NUR ---
REPORT GIVEN TO ROSARIO GLORIA FOR MS ROOM 308-1
[2016-07-20 14:00] VITALS: BP 97/69
[2016-07-20] MEDS ORDERED: MORPHINE SULFATE INJ 2 MG/ML DISP.SYRIN IV PRN (14:00)
[2016-07-20] MEDS ORDERED: ACETAMINOPHEN 325 MG TABLET PO PRN (14:00)
--- NOTE | 2016-07-20 14:00 | NUR ---
NETWORK SUPPORT SPECIALIST NOTES PATIENT ARRIVED ON FLOOR VIA GURNEY NO SOB OR ACUTE DISTRESS NOTED. ORIENTED TO FLOOR AND ROOM. NOTED CAREGIVER AT BEDSIDE. CALL LIGHT WITHIN REACH. BED IN LOW LOCKED POSITION. WILL CONTINUE TO MONITOR.
[2016-07-20] MEDS ORDERED: ALBUTEROL FS 2.5 MG/0.5 ML VIAL.NEB NEB PRN (14:30)
[2016-07-20] MEDS ORDERED: SECONDARY IV SET 1 EA INFUS.SET MC ONE (14:54)
[2016-07-20] MEDS: METRONIDAZOLE 500MG/ NS 100ML 100 ML IV SCH ×2 (14:55→21:56)
--- NOTE | 2016-07-20 15:00 | NUR ---
PERINATAL BREASTFEEDING ASSISTANT NOTES PATIENT REQUESTING WATER AND ICE, DR. PENA MADE AWARE STATES OK TO GIVE WATER IF PATIENT IS NOT COUGHING. PATIENT PERSISTENT AND KEEP REPEATING HE WANT WATER. ORDERS NOTED AND CARRIED OUT.
[2016-07-20] MEDS: IV D5/ 0.9% NACL 1,000 ML IV PRN (17:36)
--- NOTE | 2016-07-20 19:40 | NUR ---
TELE/RN OPENING NOTES PATIENT AWAKE, SITTING UP IN BED, A/OX3. CAREGIVER AT BEDSIDE. ON 2LPM O2 VIA NC, DENIES SOB, NO SIGNS OF DISTRESS NOTED. ON TELE MONITOR, SINUS RHYTHM WITH HEART RATE AT 92. COMPLAINING OF PAIN TO LOWER EXTREMITIES AND REQUESTING INTRAMUSCULAR PAIN MEDICATION. EDUCATED PATIENT THAT BP IS TOO LOW (92/57) AND THE DANGERS OF ADMINISTERING PAIN MEDICATION IV OR IM. ADVISED THAT WE CAN CONTACT THE MD FOR PO OPTION BUT PATIENT REFUSED STATING "HE CANNOT SWALLOW IT". STOCKROOM CLERK NOTIFIED BECAUSE PATIENT IS VERY PERSISTENT ABOUT RECEIVING SOMETHING FOR PAIN. PROVIDED HOT PACKS AN ALTERNATIVE FOR NOW. MANJU MIDLINE RUNNING D5NS@ 75ML/HR, FLUSHES WELL. BED IN LOW/LOCKED POSITION WITH CALL LIGHT IN REACH. BED RAILS UPX2. WILL CONTINUE TO MONITOR
--- NOTE | 2016-07-20 19:57 | NUR ---
RETAIL SALESMAN NOTES PATIENT IN BED RESTING WITH CAREGIVER AT BEDSIDE. NO SOB OR ACUTE DISTRESS NOTED. MIDLINE ON LEFT UPPER ARM INTACT PATENT. ALL DUE MEDICATIONS GIVEN. ALL NEEDS MET. WILL ENDORSE TO PM SHIFT MARINA.
[2016-07-20 20:00] VITALS: BP 92/57
--- NOTE | 2016-07-20 20:54 | NUR ---
TELE/RN NOTES SPOKE TO RADIOLOGY TO FOLLOW UP WITH ORDER OF CT OF ABDOMEN. HE SAID IT WILL HAVE TO BEEN DONE TOMORROW MORNING BECAUSE HE HAD A LOT OF STAT ORDERS TODAY, AND HAS TO CATCH UP WITH HIS WORK.
[2016-07-20 21:05] LABS: OCCULT BLOOD STOOL NEGATIVE (NEGATIVE)
[2016-07-20 22:52] LABS: BILIRUBIN,URINE NEGATIVE (NEGATIVE); BLOOD, URINE NEGATIVE Ery/uL (NEGATIVE); COLOR,URINE YELLOW (YELLOW); KETONES,URINE NEGATIVE (NEGATIVE); LEUKOCYTE ESTERASE ,URINE NEGATIVE (NEGATIVE); NITRITE, URINE NEGATIVE (NEGATIVE); PH,URINE 5.5 (5.0-8.0); PROTEIN,URINE TRACE mg/dl (NEGATIVE); UGLUCOSE NEGATIVE (NEGATIVE); UROBILINOGEN,URINE 0.2 EU/dL (0.2)
[2016-07-20 23:36] LABS: APPEARANCE,URINE HAZY (CLEAR)
[2016-07-20 23:39] LABS: ADD URINE CULTURE YES; BACTERIA,URINE 2+ /HPF (None Seen); RBC,URINE 0-2 /HPF (0-2); SQUAMOUS EPITHELIAL CELL,UR Rare /HPF (None Seen); WBC,URINE 0-2 /HPF (0-3)
[2016-07-20 23:40] LABS: HYALINE CASTS, URINE Rare /LPF (None Seen); MUCUS,URINE Few /LPF (None Seen)
[2016-07-21] VITALS: BP 108/60
[2016-07-21] MEDS: METRONIDAZOLE 500MG/ NS 100ML 100 ML IV SCH ×3 (06:06→21:09)
[2016-07-21 06:39] LABS: BASOPHILS % (AUTO) 0.1 % (0.0-2.0); EOSINOPHILS % (AUTO) 0.1 % (0.0-6.0); HEMATOCRIT 30 % (39-51); HEMOGLOBIN 9.7 g/dL (13.5-17.5); LYMPHOCYTES # (AUTO) 0.7 /CMM (0.8-4.8); LYMPHOCYTES % (AUTO) 3.4 % (20.0-44.0); MEAN CORPUSCULAR HEMOGLOBIN 27 PG (26.0-33.0); MEAN CORPUSCULAR HGB CONC 32 g/dl (31.0-36.0); MEAN CORPUSCULAR VOLUME 85 fL (80-96); MONOCYTES # (AUTO) 1.1 /CMM (0.1-1.30); MONOCYTES % (AUTO) 5.5 % (2.0-12.0); NEUTROPHILS # (AUTO) 17.8 /CMM (1.8-8.9); NEUTROPHILS % (AUTO) 90.9 % (43.0-81.0); PLATELET COUNT (AUTO) 309 /CMM (150-450); RDW COEFFICIENT OF VARIATION 18.1 (11.5-15.0); RED BLOOD CELL COUNT(AUTO) 3.52 MIL/uL (4.5-6.0); WHITE BLOOD COUNT (AUTO) 19.6 K/uL (4.3-11.0)
[2016-07-21 06:42] LABS: INR 1.39 (0.87-1.13); PROTHROMBIN TIME 15.1 SECS (9.5-12.7)
[2016-07-21 06:59] LABS: BILIRUBIN,TOTAL 0.3 mg/dL (0.2-1.0); CALCIUM, SERUM 7.1 mg/dL (8.5-10.1); POTASSIUM 3.5 mmol/L (3.5-5.1); TOTAL PROTEIN, SERUM 4.3 g/dL (6.4-8.2)
--- NOTE | 2016-07-21 07:05 | NUR ---
CASEWORK MANAGER INITIAL NOTES RECEIVED PATIENT IN BED AWAKE, ALERT AND ORIENTED X 3 IN NO ACUTE SIGNS OF DISTRESS. HEAD OF BED ELEVATED. CAREGIVER AT BEDSIDE. ON SUPPLEMENTAL 02 VIA N/C @ 2LPM, TOLERATED WITH NO SIGNS OF SOB NOTED. ON TELE-MONITORING WITH READINGS OF sr AND HR OF 79 THIS MORNING. RIGHT UPPER MIDLINE INTACT AND PATENT, IVF OF NS @ 75ML/HR ONGOING, NO INFILTRATION NOTED. CALL LIGHT WITHIN REACH, BED LOW AND LOCKED WITH SIDE RAILS UP. SAFETY MEASURES MAINTAINED. WILL CONTINUE TO MONITOR ACCORDINGLY.
[2016-07-21 07:15] LABS: ALBUMIN 1.4 g/dL (3.4-5.0)
[2016-07-21 07:19] VITALS: BP 93/60
--- NOTE | 2016-07-21 07:39 | NUR ---
TELE/RN CLOSING NOTES LAB CALLED WITH CRITICAL LAB VALUE, ALBUMIN=1.4 ENDORSED TO AM SHIFT TO FOLLOW UP PATIENT SITTING UP IN BED, CAREGIVER AT BEDSIDE. ON 2LPM O2 VIA NC. NO SOB OR DISTRESS NOTED. NO COMPLAINTS OF PAIN AT THIS TIME. ON TELE MONITOR, SINUS RHYTHM HEART RATE AT 90. WOUND CARE PROVIDED, TURNED/REPOSITIONED Q2H AND PRN. OFFLOADED EXTREMITIES. PATIENT BECOMES VERY FIXATED AND PERSISTENT ON WANTING HIS IV TO RUN FASTER AND ICE WATER. WAS ABLE TO VERBALLY CALM HIM DOWN AT TIMES. NO EPISODES OF COUGHING WHEN DRINKING. MANJU MIDLINE PATENT AND INTACT RUNNING NS @ 75ML/HR. SOME LEFT ARM EDEMA NOTED, BUT IV HAS GOOD BLOOD RETURN. CT OF ABDOMEN AND PELVIS TODAY. ENDORSED TO AM SHIFT MARINA.
[2016-07-21] MEDS: PANTOPRAZOLE 40 MG VIAL IV SCH (08:17)
--- NOTE | 2016-07-21 09:27 | NUR ---
RN NOTES PATIENT REFUSING MORPHINE 2 MG VIA IV PUSH PRN PAIN, JEAN MAYO INFORMED AND AGREED THAT WE CAN GIVE IT IM FOR PAIN. WILL CONTINUE TO MONITOR
--- NOTE | 2016-07-21 09:33 | NUR ---
RN NOTES INFORMED MD REGARDING PATIENT'S LOW ALBUMIN LEVEL OF 1.4 AND SAID THAT SHE WILL MAKE SOME ORDER FOR IT. WILL FOLLOW-UP
[2016-07-21] MEDS: MORPHINE SULFATE INJ 2 MG/ML DISP.SYRIN IM/IV PRN (10:11)
[2016-07-21] MEDS: IV D5/ 0.9% NACL 1,000 ML IV PRN (10:12)
[2016-07-21 10:19] LABS: BAND % (MANUAL) 30 % (0.0-5.0); NEUTROPHILS % (MANUAL) 63 (42-76)
[2016-07-21 10:20] LABS: LYMPHOCYTES % (MANUAL) 2 % (16-48); MONOCYTES % (MANUAL) 5 % (0-11.0); PLATELET ESTIMATE ADEQUATE
--- NOTE | 2016-07-21 11:05 | NUR ---
RN NOTES PATIENT REFUSED CT SCAN OF ABDOMEN DESPITE ENCOURAGEMENT. CHARGE NURSE AWARE.WILL CONTINUE TO MONITOR
[2016-07-21] MEDS: ALBUMIN 25% 25 GM in PREMIX 1 EA IV SCH ×3 (11:31→22:29)
[2016-07-21] MEDS ORDERED: SET RED CAP 1 EA INFUS.SET MC ONE (11:36)
[2016-07-21 12:00] VITALS: BP 98/59
--- NOTE | 2016-07-21 13:19 | NUR ---
RN NOTES RECEIVED CALL FROM [facility] THAT PATIENT IS POSITIVE FOR C-DIFF. CHARGE NURSE MADE AWARE. LEFT MESSAGE TO MD. CONTACT PRECAUTIONS ENFORCED. PATIENT AND CAREGIVER INFORMED. WILL CONTINUE TO MONITOR.
[2016-07-21] MEDS ORDERED: FUROSEMIDE 40 MG/4 ML VIAL IV ONE (14:00)
[2016-07-21 16:00] VITALS: BP 95/59
--- NOTE | 2016-07-21 16:11 | NUR ---
FAIZAN NOTES PATIENT'S WAS GIVEN FIRST DOSE OF ALBUMIN 25MG 25% / 100ML IV A2 11.30AM THEN CONTINUES ON D5 1/2 NS @ 75ML/HR. V/S TAKEN BEFORE ADMINISTERING; BP 92/63, HR 92, R 20 AND T 97.8. V/S RECHECKED AFTER ; BP 95/59, HR 96, R 20 AND T 98.2. MADE AWARE. WILL CONTINUE TO MONITOR. Addendum: 07/21/16 at 1615 by ADI DEVLIN RN Amended: Links added.
[2016-07-21] MEDS: BOOST PLUS FOOD-CHOCLATE 237 ML BOX PO SCH (17:29)
--- NOTE | 2016-07-21 18:56 | NUR ---
DISTRICT MANAGER PRIMARY CARE SALES CLOSING NOTES PATIENT IN BED ALERT, AWAKE AND ORIENTED 3, NO ACUTE SIGNS OF DISTRESS NOTED. CAREGIVER AT BEDSIDE. CONTACT PRECAUTIONS FOR C-DIFF MAINTAINED. CONTINUES ON 02 VIA N/C @ 2LPM, TOLERATED WITH NO SOB DURING TOUR. LEFT UPPER ARM MIDLINE INTACT AND PATENT WITH IVF OF D5NS @ 75ML/HR IN PROGRESS. ALL NEEDS AND CARE WELL PROVIDED. CALL LIGHT KEPT WITHIN REACH. BED KEPT LOW, LOCKED AND SIDE RAILS UP. ALL REQUIRED SAFETY PRECAUTIONS MAINTAINED. WILL ENDORSED TO LABORER CONCRETE PAVING FOR CONTINUITY OF CARE.
--- NOTE | 2016-07-21 19:15 | NUR ---
RN NOTES RECEIVED PT AWAKE, HOB ELEVATED, PT ALERT AND ORIENTED X3, VERBALIZING PAIN ON HIS BOTH LOWER LEG 3/10. NO SOB, NO SIGNS OF ACUTE DISTRESS NOTED. TELEMONITOR READS SINUS RHYTHM WITH HEART RATE AT 93. ON O2 INHALATION AT 2LPM VIA NC TOLERATED WELL. LEFT UPPER ARM MIDLINE PATENT AND INTACT WITH ONGOING IVF INFUSING WELL. LEFT UPPER ARM MIDLINE PATENT AND INTACT WITH ONGOING IVF INFUSING WELL. EDEMA ON LEFT UPPER ARM AND BOTH FEET NOTED AND KEPT ELEVATED ON A PILLOW. ISOLATION PRECAUTION FOR C-DIFF OBSERVED. KEPT PT COMFORTABLE AND ATTENDED, WITH SITTER AT BEDSIDE. SAFETY MEASURES IN PLACED. WILL CONTINUE TO MONITOR PT.
[2016-07-21 20:00] VITALS: BP 88/60
[2016-07-21 22:00] VITALS: BP 88/60
[2016-07-21] MEDS: DULOXETINE HCL 30 MG CAPSULE.DR PO SCH (22:01)
[2016-07-21] MEDS ORDERED: SECONDARY IV SET 1 EA INFUS.SET MC ONE (22:29)
[2016-07-22] VITALS: BP 88/48
[2016-07-22] MEDS: MORPHINE SULFATE INJ 2 MG/ML DISP.SYRIN IM/IV PRN (01:28)
--- NOTE | 2016-07-22 01:28 | NUR ---
RN NOTES PT COMPLAINS OF 9/10 PAIN ON HIS BOTH LOWER LEG, MORPHINE 2MG GIVEN IV. WILL CONTINUE TO MONITOR PT.
--- NOTE | 2016-07-22 02:46 | NUR ---
RN NOTES PT VERBALIZING THAT HE FEELS NAUSEATED, CALLED DR TATE WITH ORDER OF ZOFRAN 4MG IV Q6H PRN. NOTED AND CARRIED OUT.
[2016-07-22 04:00] VITALS: BP 101/67
[2016-07-22] MEDS: IPRATROPIUM NEB FS 0.5 MG/2.5 ML AMPUL.NEB NEB PRN (04:12)
[2016-07-22] MEDS: ALBUMIN 25% 25 GM in PREMIX 1 EA IV SCH (04:40)
[2016-07-22] MEDS: IV D5/ 0.9% NACL 1,000 ML IV PRN (05:12)
[2016-07-22] MEDS: METRONIDAZOLE 500MG/ NS 100ML 100 ML IV SCH ×2 (05:17→12:44)
--- NOTE | 2016-07-22 07:03 | NUR ---
RN NOTES PT ASLEEP, HOB ELEVATED, BREATHING REGULAR AND UNLABORED, TOLERATING O2 INHALATION AT 2LPM VIA NC. ZOFRAN IV WAS NOT GIVEN BECAUSE PT SLEEPS AFTER VERBALIZING HE'S NAUSEOUS. NO EPISODE OF VOMITING NOTED. ALL DUE MEDS GIVEN, KEPT PT CLEAN AND DRY. PT REFUSED TO BE TURNED TO SIDES, RISK AND BENEFITS OF EXPLAINED , PT STRONGLY REFUSED TO BE TURNED. ISOLATION PRECAUTION OBSERVED. ALL NEEDS ATTENDED. ENDORSED TO MORNING RN FOR CONTINUITY OF CARE.
--- NOTE | 2016-07-22 07:14 | NUR ---
MS GLORIA INITIAL NOTES PATIENT RECEIVED COMFORTABLY RESTING IN BED WITH CAREGIVER AT BEDSIDE. ALERT AND ORIENTED X3, NO ACUTE SIGNS OF DISTRESS AND NO COMPLAINTS OF PAIN OR DISCOMFORTS @ THIS TIME. HEAD OF BED ELEVATED. ON 02 VIA N/C @ 2LPM, TOLERATING WELL. IVF OF D5 NS @ 75ML/HR TO LEFT UPPER ARM MIDLINE INFUSING WELL. CALL LIGHT WITHIN REACH. CONTACT ISOLATION MAINTAINED FOR C-DIFF. WILL CONTINUE TO MONITOR ACCORDINGLY. Addendum: 07/22/16 at 0938 by ADI DEVLIN RN ADDENDUM; PATIENT ON TELE MONITORING WITH READING OF SINUS RHTYMN AND HR OF 77 @ THIS TIME.
[2016-07-22 08:00] VITALS: BP 98/77
[2016-07-22] MEDS: BOOST PLUS FOOD-CHOCLATE 237 ML BOX PO SCH ×3 (08:52→16:22)
[2016-07-22] MEDS: PANTOPRAZOLE 40 MG VIAL IV SCH (08:53)
[2016-07-22] MEDS: MULTIVITAMIN LIQ 5 ML UDC PO SCH (08:53)
[2016-07-22] MEDS: ASCORBIC ACID 500 MG TABLET PO SCH (08:53)
[2016-07-22 09:26] LABS: EOSINOPHILS % (AUTO) 0.2 % (0.0-6.0); HEMATOCRIT 28 % (39-51); HEMOGLOBIN 9.1 g/dL (13.5-17.5); LYMPHOCYTES # (AUTO) 0.7 /CMM (0.8-4.8); LYMPHOCYTES % (AUTO) 4.4 % (20.0-44.0); MEAN CORPUSCULAR HEMOGLOBIN 27 PG (26.0-33.0); MEAN CORPUSCULAR HGB CONC 32 g/dl (31.0-36.0); MEAN CORPUSCULAR VOLUME 84 fL (80-96); MONOCYTES # (AUTO) 0.2 /CMM (0.1-1.30); MONOCYTES % (AUTO) 1.6 % (2.0-12.0); NEUTROPHILS # (AUTO) 14.2 /CMM (1.8-8.9); NEUTROPHILS % (AUTO) 93.8 % (43.0-81.0); PLATELET COUNT (AUTO) 216 /CMM (150-450); RDW COEFFICIENT OF VARIATION 17.6 (11.5-15.0); RED BLOOD CELL COUNT(AUTO) 3.37 MIL/uL (4.5-6.0); WHITE BLOOD COUNT (AUTO) 15.1 K/uL (4.3-11.0)
--- NOTE | 2016-07-22 09:29 | NUR ---
WOUND CARE CONSULT: PT PRESENTS WITH MULTIPLE WOUNDS AND SKIN ISSUES, PRESENT ON ADMISSION INCLUDING RT BUTTOCK AND SACRAL STAGE III ULCERS AND LEFT HEEL DRY BROWN STABLE ESCHAR. EXOCRIATION NOTED TO BUTTOCKS AND PERIANAL AREA. PT HAS BEEN HAVING LOOSE STOOLS AND IS INCONTINENT. PT'S CAREGIVER AT BEDSIDE STATED LEFT HEEL ESCHAR WAS PRESENT PRIOR TO ADMISSION. RT ANKLE AND FOOT NOTED TO HAVE 4+ PITTING EDEMA. LEFT ARM EDEMATOUS. PT ON [place] ISOFLEX LOW AIRLOSS BED. PT IS UNCOOPERATIVE AT TIMES. ALL SKIN AND WOUND RECOMMENDATIONS DISCUSSED WITH NURSING STAFF. MD IN AGREEMENT WITH PLAN OF CARE. Addendum: 07/22/16 at 0932 by TESHA BROWN WNDNU Amended: Links added.
[2016-07-22] MEDS ORDERED: Z GUARD REMEDY 2 OZ OINT TP PRN (09:30)
[2016-07-22] MEDS ORDERED: HYDROGEL DRESSING 90 GM TUBE TP PRN (09:30)
--- NOTE | 2016-07-22 09:38 | NUR ---
RN NOTES PATIENT UNCOOPERATIVE AND REFUSED BOOST PLUS SUPPLEMENT AND MULTIVITAMINS MEDS ORALLY THIS MORNING. REFUSED TO BE REPOSITION FROM SIDE TO SIDE WELL DESPITE EXPLAINING BENEFITS OF IT. WILL CONTINUE TO MONITOR
[2016-07-22 09:44] LABS: CALCIUM, SERUM 7.8 mg/dL (8.5-10.1); CREATININE 0.8 mg/dL (0.6-1.3); MAGNESIUM 1.5 mg/dL (1.8-2.4); PHOSPHORUS 2.4 mg/dL (2.5-4.9); POTASSIUM 3.2 mmol/L (3.5-5.1)
--- NOTE | 2016-07-22 10:17 | NUR ---
RN NOTES MD MADE AWARE OF PATIENT'S UN-COOPERATING TO CARE AND REFUSING MOST MEDS AND TREATMENTS. MD ORDER PSYCH CONSULT. WILL FOLLOW-UP.
[2016-07-22] MEDS ORDERED: POTASSIUM PHOSPHATE MM 15 MMOL in IV D5W 250 ML IV SCH (12:00)
[2016-07-22] MEDS ORDERED: POTASSIUM CHLORIDE 20 MEQ TAB.PRT.SR PO ONE (12:00)
[2016-07-22] MEDS: Z GUARD REMEDY 2 OZ OINT TP SCH (12:12)
[2016-07-22] MEDS: HYDROGEL DRESSING 90 GM TUBE TP SCH (12:12)
[2016-07-22] MEDS: Magnesium 1GM/D5W 100ML PREMIX 100 ML IV SCH ×4 (12:15→16:17)
[2016-07-22] MEDS ORDERED: SECONDARY IV SET 1 EA INFUS.SET MC ONE (12:38)
[2016-07-22] MEDS: POTASSIUM PHOSPHATE MM 7.5 MMOL in IV D5W 100 ML IV SCH ×2 (12:40→16:20)
[2016-07-22 16:00] VITALS: BP 95/60
--- NOTE | 2016-07-22 17:35 | NUR ---
RN NOTES PSYCH DR BOOTH CALLED TO INFORMED THAT HE DID COME AND ASSESSED PATIENT YESTERDAY, 07/21/2016 AND DID PROGRESS NOTES ON WHAT HE OBSERVED AND EVALUATED ON PATIENT. MESSAGE SENT TO DR GRACIA.
--- NOTE | 2016-07-22 18:54 | NUR ---
OLD COIN DEALER CLOSING NOTES PATIENT RESTING @ MODERATE HIGH BACKREST IN BED WITH CAREGIVER AT BEDSIDE. ALERT, AND ORIENTED X3. SEEN AND EVALUATED BY DR OROZCO (PSYCH DOCTOR) AT 1830H, NO ORDER MADE AT THIS TIME. CONTINUES TO REFUSED BOOST PLUS AND MEDS GIVEN ORALLY, MD AWARE. CONTACT PRECAUTIONS FOR C-DIFF MAINTAINED. CONTINUES ON 02 VIA N/C @ 2LPM, TOLERATED WITH NO SOB DURING TOUR. LEFT UPPER ARM MIDLINE INTACT AND PATENT WITH IVF OF D5NS @ 75ML/HR IN PROGRESS. ALL IV MEDS GIVEN ORDERED AND TOLERATED. ALL NEEDS AND CARE WELL PROVIDED. CALL LIGHT KEPT WITHIN REACH. BED KEPT LOW, LOCKED AND SIDE RAILS UP. ALL REQUIRED SAFETY PRECAUTIONS MAINTAINED. WILL ENDORSED TO STUDENT EDUCATION SPECIALIST FOR CONTINUITY OF CARE.
--- NOTE | 2016-07-22 19:15 | NUR ---
RN NOTES RECEIVED PT AWAKE, HOB ELEVATED, PT ALERT AND ORIENTED X3, DENIES ANY PAIN AND DISCOMFORT AT THIS TIME. NO SOB, NO SIGNS OF ACUTE DISTRESS NOTED, WITH CAREGIVER AT BEDSIDE. TELEMONITOR READS SINUS RHYTHM WITH HEART RATE AT 66. ON O2 INHALATION AT 2LPM VIA NC TOLERATED WELL. LEFT UPPER ARM MIDLINE PATENT AND INTACT WITH ONGOING IVF INFUSING WELL. EDEMA ON LEFT UPPER ARM AND BOTH FEET NOTED AND KEPT ELEVATED ON A PILLOW. ISOLATION PRECAUTION FOR C-DIFF MAINTAINED. KEPT PT COMFORTABLE AND ATTENDED. SAFETY MEASURES IN PLACED. WILL CONTINUE TO MONITOR PT.
[2016-07-22] MEDS: METRONIDAZOLE 500 MG TABLET PO SCH (21:00)
[2016-07-22] MEDS: ONDANSETRON HCL/PF 4 MG/2 ML VIAL IV PRN (21:34)
--- NOTE | 2016-07-22 21:34 | NUR ---
RN NOTES PT VERBALIZES THAT HE'S NAUSEOUS, AND ASKING FOR THE SHOT SO HE WILL NOT THROW UP. INFORMED PT THAT ANTI NAUSEA MEDS WILL BE GIVEN IV AND ITS ALSO DUE FOR HIS ANTIBIOTIC AND CYMBALTA. PT SAID TO GIVE THE ANTI NAUSEA FIRST BEFORE HE WILL TAKE THE OTHER 2 PILLS. ZOFRAN 4 MG GIVEN IV, THEN PT REFUSED TO TAKE HIS FLAGYL AND CYMBALTA HE SAID HE'S ONLY LYING WHEN HE SAID THAT HE WILL TAKE HIS PILLS. RISK AND BENEFITS EXPLAIN PT STRONGLY REFUSED AND SCREAMING.
[2016-07-22] MEDS: DULOXETINE HCL 30 MG CAPSULE.DR PO SCH (21:44)
[2016-07-22 22:00] VITALS: BP 90/73
[2016-07-23] VITALS: BP 97/74
[2016-07-23] MEDS: IV D5/ 0.9% NACL 1,000 ML IV PRN (04:03)
[2016-07-23] MEDS: METRONIDAZOLE 500 MG TABLET PO SCH ×3 (05:00→21:49)
--- NOTE | 2016-07-23 05:32 | NUR ---
RN NOTES PT REFUSED TO TAKE FLAGYL PO, RISK AND BENEFITS EXPLAINED, PT STRONGLY REFUSED TO TAKE THE MEDICATION.
[2016-07-23 07:25] LABS: BASOPHILS % (AUTO) 0.2 % (0.0-2.0); EOSINOPHILS # (AUTO) 0.1 /CMM (0.0-0.7); EOSINOPHILS % (AUTO) 0.3 % (0.0-6.0); HEMATOCRIT 32 % (39-51); HEMOGLOBIN 10.4 g/dL (13.5-17.5); LYMPHOCYTES # (AUTO) 1.1 /CMM (0.8-4.8); LYMPHOCYTES % (AUTO) 6.6 % (20.0-44.0); MEAN CORPUSCULAR HEMOGLOBIN 28 PG (26.0-33.0); MEAN CORPUSCULAR HGB CONC 33 g/dl (31.0-36.0); MEAN CORPUSCULAR VOLUME 85 fL (80-96); MONOCYTES # (AUTO) 0.9 /CMM (0.1-1.30); MONOCYTES % (AUTO) 5.5 % (2.0-12.0); NEUTROPHILS # (AUTO) 14.8 /CMM (1.8-8.9); NEUTROPHILS % (AUTO) 87.4 % (43.0-81.0); PLATELET COUNT (AUTO) 209 /CMM (150-450); RDW COEFFICIENT OF VARIATION 17.7 (11.5-15.0); RED BLOOD CELL COUNT(AUTO) 3.73 MIL/uL (4.5-6.0); WHITE BLOOD COUNT (AUTO) 16.9 K/uL (4.3-11.0)
--- NOTE | 2016-07-23 07:30 | NUR ---
ROUNDHOUSE WORKER OPENING RECEIVED PT A/OX3 DENIES PAIN, SOB DIFFICULTY BREATHING AT THIS TIME. PT HAS NC O2 2LPM ON PER REQUEST. PT EDUCATED ON SKIN SAFETY AND CARE, TURNING Q2H AND IMPORTANCE OF OFFLOADING. PATIENT STATES HE WILL ALLOW US TO TURN AND OFFLOAD HIM. EDUCATED PATIENT ON IMPORTANCE OF ANTIBIOTICS AND MEDICATIONS. PT STILL REFUSING TO TAKE PO MEDICATIONS BUT WAS ABLE TO DRINK SOME BOOST. PT HAS A 24H CAREGIVER AT BEDSIDE. NSR 70-80S. PT APPEARS STABLE AT THIS TIME AND LEFT WITH CALL LIGHT IN REACH, BED LOWERED AND LOCKED, RAILS UPX3 FOR SAFETY AND WILL ROUND PRN NEEDED
--- NOTE | 2016-07-23 07:30 | NUR ---
RN NOTES PT ASLEEP, HOB ELEVATED, BREATHING REGULAR AND UNLABORED, NO SIGNS OF DISTRESS AND DISCOMFORT NOTED. VITAL SIGNS STABLE, AFEBRILE. TELEMONITOR READS SINUS RHYTHM WITH HEART RATE AT 68. PT STILL HAVING WATERY STOOL 2X WITHIN THE SHIFT. PT REFUSED TO TAKE PO FLAGYL AND CYMBALTA. PT ALSO REFUSED TO BE TURNED AND REPOSITIONED. ALL NEEDS ATTENDED. KEPT PT CLEAN AND DRY, ENDORSED TO MORNING RN FOR CONTINUITY OF CARE.
[2016-07-23 07:34] LABS: CALCIUM, SERUM 7.4 mg/dL (8.5-10.1); CREATININE 0.7 mg/dL (0.6-1.3); MAGNESIUM 2.2 mg/dL (1.8-2.4); POTASSIUM 2.9 mmol/L (3.5-5.1)
[2016-07-23] MEDS: BOOST PLUS FOOD-CHOCLATE 237 ML BOX PO SCH ×3 (07:57→16:19)
[2016-07-23 08:00] VITALS: BP 113/69
--- NOTE | 2016-07-23 08:30 | NUR ---
MS RN NOTES PT HAD 1 EPISODE OF DIARRHEA. SKIN CLEANSED, WOUND CARE COMPLETED. PATIENT ALLOWED US TO OFFLOAD HEELS AND OFFLOAD SACRUM WITH PILLOWS.
[2016-07-23] MEDS: ASCORBIC ACID 500 MG TABLET PO SCH (09:00)
--- NOTE | 2016-07-23 09:30 | NUR ---
MS RN NOTES PT REFUSING ME TO TAKE AN UPDATED PIC OF SACRUM AT THIS TIME. EXPLAINED PIC DOES NOT SHOW VERY WELL WOUNDS. PATIENT HAS 1 LARGER AREA AND 2 OTHER SMALLER AREAS ON SACRUM. THEY APPEAR CLEAN AND WILL CONTINUE WITH WOUND CARE PRN SOILING
[2016-07-23] MEDS: Z GUARD REMEDY 2 OZ OINT TP SCH (09:54)
[2016-07-23] MEDS: HYDROGEL DRESSING 90 GM TUBE TP SCH (09:54)
[2016-07-23] MEDS ORDERED: SECONDARY IV SET 1 EA INFUS.SET MC ONE (11:23)
[2016-07-23] MEDS: MULTIVITAMIN LIQ 5 ML UDC PO SCH (11:27)
[2016-07-23] MEDS ORDERED: NEUTRA PHOS 1 POWD.PACKET NG ONE (11:30)
[2016-07-23] MEDS ORDERED: POTASSIUM PHOSPHATE MM 15 MMOL in IV D5W 250 ML IV SCH ×4 (11:30)
--- NOTE | 2016-07-23 11:55 | NUR ---
MS RN NOTES AFTER MULTIPLE ATTEMPTS AND EDUCATION FOR PATIENT HE IS REUFSING TO TAKE SOME OF HIS MEDICATIONS. PT REFUSING TO EAT ANY FOOD. ASKED PATIENT WHAT HE ENJOYS EATING SO WE CAN BRING. PATIENT STATES HE WILL TRY AND EAT CHOCOLATE PUDDING. PT DIARRHEA, SKIN CLEANED AND WOUND CARE COMPLETED FOR BRYCE
[2016-07-23] MEDS: POTASSIUM PHOSPHATE MM 7.5 MMOL in IV D5W 100 ML IV SCH ×4 (13:01→21:49)
--- NOTE | 2016-07-23 14:00 | NUR ---
MS RN NOTES CHANGED A BM FOR PATIENT. WOUND CARE AND SKIN CARE COMPLETED
[2016-07-23 16:00] VITALS: BP 106/67
--- NOTE | 2016-07-23 16:00 | NUR ---
MS RN NOTES PT REFUSING TO BE REPOSITIONED OR HAVE PILLOW TO OFFLOAD SACRUM
[2016-07-23] MEDS: MORPHINE SULFATE INJ 2 MG/ML DISP.SYRIN IM/IV PRN ×2 (16:19→20:14)
[2016-07-23] MEDS: ONDANSETRON HCL/PF 4 MG/2 ML VIAL IV PRN (16:25)
--- NOTE | 2016-07-23 17:13 | NUR ---
MS RN NOTES NOTIFIED MD PENA PATIENT REFUSING ALMOST ALL ORAL INTAKE ONLY ABLE TO GET HIM TO TAKE ANTIBIOTIC AND A COUPLE SIPS OF BOOST. PER MD ORDER 400MG DAILY ACE
--- NOTE | 2016-07-23 17:24 | NUR ---
MS RN NOTES ANOTHER BM. SKIN CARE AND WOUND CARE COMPLETED
--- NOTE | 2016-07-23 18:00 | NUR ---
MS RN NOTES PT REFUSING OFFLOADING OF SACRUM. EDUCATED
--- NOTE | 2016-07-23 18:46 | NUR ---
MS RN CLOSING PT STABLE. NON COMPLIANT WITH EATING FOOD TODAY. PARTIALLY COMPLIANT WITH TURNING Q2H. ALLOWED US TO ELEVATE AND OFFLOAD HEELS AND ELBOWS THROUGHOUT DAY. PATIENT EDUCATED MULTIPLE TIMES THROUGHOUT DAY ABOUT DIET, SKIN CARE, MEDICATION USAGE AND SAFETY. PATIENT STATES UNDERSTANDING BUT REFUSES TO COMPLY WHEN ASKED. MD IS AWARE AND PATIENT CAREGIVER AT SIDE 24HRS. PT SKIN KEPT CLEAN AND WOUND CARE COMPLETED WITH EVERY SOILING. PT IS TOLERATING REPLACEMENTS OF POTASSIUM PHOS AND NO COMPLAINTS. PT LEFT WITH CALL LIGHT INR EACH, BED LOWERED AND LOCKED, RAILS UPX3 FOR SAFETY AND BED ALARM ON. WILL ENDORSE TO OTF GLORIA
[2016-07-23 18:51] VITALS: BP 97/62
--- NOTE | 2016-07-23 19:05 | NUR ---
MS RN NOTES PATIENT REQUESTING PAIN MEDICATIONS. EDUCATED WE CANNOT GIVE MORPHINE BP IS TOO LOW. MESSAGE LEFT TO DR PENA IF ANY OTHER PAIN MEDICATIONS PATIENT CAN HAVE. NO ORDERS YET. ENDORSED TO FAIZAN VANESSA.
--- NOTE | 2016-07-23 19:30 | NUR ---
RN NOTES: RECEIVED PATIENT LYING ON BED,A/OX3,ABLE TO MAKE NEEDS KNOWN,RONY-MIDLINE G#18 INTACT AND PATENT WITH IVF ONGOING D5NS@75ML/HR,O2 AT 2L/MIN VIA NC SPO2 95%, NO SIGN OF SOB AND RESPIRATORY DISTRESS NOTED, ISOLATION PRECAUTION(STOOL C-DIFF OBSERVE),UNIVERSAL PRECAUTION,FALL,SAFETY AND ASPIRATION PRECAUTION OBSERVE, CONTINUE TO EDUCATE ABOUT TURNING AND REPOSITION,IMPORTANCE OF MEDICINE AND GOOD ORAL INTAKE COMPLIANCE.PATIENT HAS 24H CAREGIVER, BED LOW AND LOCKED,ON CLOSE VISUAL CHECK, CALL LIGHT WITHIN REACH.
[2016-07-23 20:00] VITALS: BP 104/62
--- NOTE | 2016-07-23 20:20 | NUR ---
RN NOTES: PATIENT IS COMPLAINING OF SEVERE PAIN ON LLE 02/28, HE IS DEMANDING FOR HIS PAIN MEDICATION BP-104/69 WY-70 NO SIGN OF RESPIRATORY DISTRESS,PAIN MEDICATION GIVEN.
--- NOTE | 2016-07-23 21:00 | NUR ---
RN NOTES: (DESIZING MACHINE OPERATOR) NOTIFIED PATIENT REQUEST FOR PAIN MEDICATION,MORPHINE DECREASE HIS BLOOD PRESSURE LATEST BP-100/58,TORADOL 15MG IV Q 6H PRN FOR PAIN ADDED, NOTED AND CARRIED OUT.
[2016-07-23] MEDS: DULOXETINE HCL 30 MG CAPSULE.DR PO SCH (21:49)
--- NOTE | 2016-07-23 22:05 | NUR ---
RN NOTES: PATIENT AGREED TO TAKE ORAL/ANTIBIOTIC AND CYMBALTA, OFFERED ICE CHIPS,TAKEN SIPS OF WATER;MORNING CARE DONE, CALL LIGHT WITHIN REACH.CALLS AND NEEDS ATTENDED.
[2016-07-24] MEDS: METRONIDAZOLE 500 MG TABLET PO SCH ×4 (05:00→21:00)
--- NOTE | 2016-07-24 05:22 | NUR ---
RN NOTES: DESPITE EXPLANATION OF IMPORTANCE NOT TO SKIP HIS ANTIBIOTIC THERAPY AND CONVINCING HIM,HE STRONGLY REFUSED TO TAKE HIS FLAGYL/P.O. 5AM DOSE HE SAID "I DONT WANT IT,I WANT TO SLEEP,".
[2016-07-24] MEDS: IV D5/ 0.9% NACL 1,000 ML IV PRN (05:31)
--- NOTE | 2016-07-24 07:04 | NUR ---
RN NOTES: PATIENT ASLEEP IN BED,BREATHING EVENLY,ON SUPPLEMENTAL O2 TOLERATED WELL,NO SOB.SKIN WARM AND DRY,REQUEST TO DO BLOOD TEST LATER ON,ASSISTED WITH ADLS,NEEDS ATTENDED, BED LOW AND LOCKED,SRX2,CALL LIGHT WITHIN REACH,WILL CONTINUE TO MONITOR AND WILL ENDORSE TO AM SHIFT FOR MARINA.
--- NOTE | 2016-07-24 07:30 | NUR ---
PT RECEIVED RESTING COMFORTABLY IN BED. NO S/S OR C/O PAIN OR DISTRESS NOTED. SIDE RAILS UP X2, CALL LIGHT LEFT WITHIN REACH. WILL CONTINUE PLAN OF CARE.
[2016-07-24] MEDS: BOOST PLUS FOOD-CHOCLATE 237 ML BOX PO SCH ×3 (08:00→17:00)
[2016-07-24 08:08] VITALS: BP 115/67
[2016-07-24] MEDS ORDERED: MEGESTROL ACETATE 40 MG TABLET PO SCH (09:00)
[2016-07-24] MEDS: ASCORBIC ACID 500 MG TABLET PO SCH (09:27)
[2016-07-24] MEDS: MEGESTROL ACETATE SUSP 400 MG/10 ML UDC PO SCH (09:27)
[2016-07-24] MEDS: MULTIVITAMIN LIQ 5 ML UDC PO SCH (09:27)
[2016-07-24] MEDS: KETOROLAC TROMETHAMINE INJ 30 MG/ML VIAL IV PRN ×2 (09:27→21:35)
[2016-07-24] MEDS: Z GUARD REMEDY 2 OZ OINT TP SCH (09:36)
[2016-07-24] MEDS: HYDROGEL DRESSING 90 GM TUBE TP SCH (09:36)
[2016-07-24 11:29] LABS: BASOPHILS % (AUTO) 0.2 % (0.0-2.0); EOSINOPHILS % (AUTO) 0.2 % (0.0-6.0); HEMATOCRIT 36 % (39-51); HEMOGLOBIN 11.2 g/dL (13.5-17.5); LYMPHOCYTES # (AUTO) 1.1 /CMM (0.8-4.8); LYMPHOCYTES % (AUTO) 6.7 % (20.0-44.0); MEAN CORPUSCULAR HEMOGLOBIN 27 PG (26.0-33.0); MEAN CORPUSCULAR HGB CONC 32 g/dl (31.0-36.0); MEAN CORPUSCULAR VOLUME 85 fL (80-96); MONOCYTES # (AUTO) 0.7 /CMM (0.1-1.30); MONOCYTES % (AUTO) 4.1 % (2.0-12.0); NEUTROPHILS # (AUTO) 14.4 /CMM (1.8-8.9); NEUTROPHILS % (AUTO) 88.8 % (43.0-81.0); PLATELET COUNT (AUTO) 215 /CMM (150-450); RED BLOOD CELL COUNT(AUTO) 4.18 MIL/uL (4.5-6.0); WHITE BLOOD COUNT (AUTO) 16.2 K/uL (4.3-11.0)
[2016-07-24 11:39] LABS: CALCIUM, SERUM 7.5 mg/dL (8.5-10.1); CREATININE 0.9 mg/dL (0.6-1.3); POTASSIUM 3.3 mmol/L (3.5-5.1)
[2016-07-24] MEDS: IV NS 0.9% 1,000 ML IV PRN ×2 (11:54→23:16)
--- NOTE | 2016-07-24 12:00 | NUR ---
PT REFUSED TO BE TURNED. NURSING TEACHING PERFORMED TO EXPLAIN IMPORTANCE OF TURNING Q2 HOURS BUT PT CONTINUED TO REFUSE. WILL CONTINUE TO MONITOR.
[2016-07-24 16:00] VITALS: BP 118/72
--- NOTE | 2016-07-24 18:21 | NUR ---
CHANGE OF SHIFT REPORT PT RESTING COMFORTABLY IN BED. NO S/S OR C/O PAIN OR DISTRESS NOTED. SIDE RAILS UP X2, CALL LIGHT LEFT WITHIN REACH. PT KEPT CLEAN, DRY, AND COMFORTABLE. NO SIGNIFICANT CHANGES SINCE PREVIOUS SHIFT. WILL GIVE REPORT TO GISEL GLORIA.
[2016-07-24 20:00] VITALS: BP 115/84
--- NOTE | 2016-07-24 20:00 | NUR ---
MS RN: RECEIVED PATIENT IN BED, AWAKE, WITH OXYGEN VIA NASAL CANNULA AT 2LPM. WITH COMPLAINS OF PAIN ON THE LEFT LOWER LEG.WITH IVF AT THE RONY G#18, NS RUNNING AT 100ML.HR. REALITY ORIENTATION DONE. IV SITE CHECKED. NO REDNESS, NO PHLEBITIS NOTED. ENCOURAGED PATIENT MORE FOOD AND FLUID INTAKE. SAFETY AND FALL PRECAUTIONS OBSERVED. PLACED CALL LIGHT WITHIN PATIENT'S REACH. WILL MONITOR PATIENT.
[2016-07-24] MEDS: ALBUTEROL FS 2.5 MG/3 ML VIAL.NEB NEB PRN (20:36)
[2016-07-24] MEDS: IPRATROPIUM NEB FS 0.5 MG/2.5 ML AMPUL.NEB NEB PRN (20:37)
--- NOTE | 2016-07-24 20:39 | NUR ---
MS RN: PATIENT WITH LOW O2 SATURATION 84%. HEART RATE AT 97 RR-18 BP-113/76. PAGED EPIC GROUP AIR AND WATER TESTER. PAGED RESPIRATORY THERAPIST FOR HIS PRN BREATHING TREATMENT.
--- NOTE | 2016-07-24 21:09 | NUR ---
MS RN: DR. LEA GRACIA CALLED BACK, REPORTED PATIENTS CURRENT CONDITION, WITH ORDERS TO DO ABG'S ON PATIENT.
--- NOTE | 2016-07-24 21:35 | NUR ---
PATIENT COMPLAINED OF PAIN ON THE LEFT LOWER LEG. TORADOL 15 MG GIVEN ORDERED. WILL MONITOR PAIN STATIS.
[2016-07-24] MEDS: DULOXETINE HCL 30 MG CAPSULE.DR PO SCH (22:00)
--- NOTE | 2016-07-24 22:00 | NUR ---
MS RN: PATIENT REFUSED TO HAVE PICTURES TAKEN FROM THE SACRAL AREA. WILL ENDORSE TO DAY SHIFT NURSE.
--- NOTE | 2016-07-24 22:39 | NUR ---
MS RN: ABG EXTRACTION UNSUCCESSFUL. DR. LEA GRACIA PASSED BY UNIT AND INFORMED OF THE STATUS. TO CONTINUE MONITORING THE PATIENT. O2 SAT LEVEL 99% WITH O2 AT 2LPM. WILL CONTINUE TO MONITOR.
[2016-07-25] MEDS: IPRATROPIUM NEB FS 0.5 MG/2.5 ML AMPUL.NEB NEB PRN ×4 (00:37→22:41)
[2016-07-25] MEDS: ALBUTEROL FS 2.5 MG/3 ML VIAL.NEB NEB PRN ×2 (00:37→22:41)
--- NOTE | 2016-07-25 02:45 | NUR ---
MS RN: PATIENT IS FOR CT ABDOMEN WITH CONTRAST REPORTED BY DAY SHIFT NURSE FAIZAN DOHERTY. PATIENT ASKED FOR FLUIDS. EXPLAINED TO PATIENT THE REASON FOR HIS NPO STATUS, HOWEVER PATIENT YELLED AT NURSE AND AT THE CAREGIVER WELL. HE STATED, "I WANT MY GATORADE" "I DONT WANT THE PROCEDURE" SPOKE WITH THE CHARGE NURSE. AND NOTED THAT THE PATIENT HAS ALWAYS BEEN REFUSING CARE AND MEDICATIONS. PROVIDED PATIENT WITH ICE CHIPS BUT HE STILL WANTED THE GATORADE. WILL MONITOR PATIENT'S STATUS.
--- NOTE | 2016-07-25 05:57 | NUR ---
MS RN: PATIENT IN THE ROOM, AWAKE. ALEX BAIRDA REPORTED THAT PATIENT REFUSED TO BE CHANGED AND DEMANDED THE GERIATRICIAN TO LEAVE AT ONCE. SPOKE WITH PATIENT BUT THE PATIENT STATED RIGHT AWAY TO NURSE, "LET ME SLEEP" INFORMED REGARDING HIS SCHEDULED MEDICATION-FLAGYL, PATIENT JUST ANSWERED "LET ME SLEEP. O2 SAT LEVEL 96%. WILL ENDORSE PATIENT TO DAY SHIFT NURSE.
[2016-07-25] MEDS: METRONIDAZOLE 500 MG TABLET PO SCH ×3 (06:00→21:30)
--- NOTE | 2016-07-25 07:25 | NUR ---
MS RN: P PATIENT IN BED, IVF ON GOING. NO SIGNS AND SYMPTOMS PF PHLEBITIS NOTED. NO SIGNS AND SYMPTOMS OF DISCOMFORT THIS TIME. CALL DOAN PLACED WITHIN REACH. SAFETY AND FALL PRECAUTIONS OBSERVED.WILL ENDORSE TO DAY SHIFT NURSE.
--- NOTE | 2016-07-25 07:30 | NUR ---
RN NOTES RECEIVED PATIENT IN BED ALERT, AWAKE, ORIENTED X3 WITH BREATHING NORMAL, EVEN AND UNLABORED. NO SOB NOTED. ON 2L O2 VIA NC, SATURATING WELL. NO ACUTE DISTRESS NOTED. PAIN MANAGEMENT PER ORDER. RONY MIDLINE IS PATENT AND INTACT, NO INFILTRATION NOTED. CONT ON IVF PER ORDER. KEPT CLEAN, DRY AND COMFORTABLE. ALL NEEDS ATTENDED. SAFETY MEASURE OBSERVED. SITTER AT BEDSIDE. CALL LIGHT WITH IN REACH.L WILL CONT TO MONITOR.
[2016-07-25 08:00] VITALS: BP 114/81
[2016-07-25 08:18] LABS: BASOPHILS % (AUTO) 0.1 % (0.0-2.0); EOSINOPHILS # (AUTO) 0.1 /CMM (0.0-0.7); EOSINOPHILS % (AUTO) 0.4 % (0.0-6.0); HEMATOCRIT 35 % (39-51); HEMOGLOBIN 11.3 g/dL (13.5-17.5); LYMPHOCYTES % (AUTO) 5.7 % (20.0-44.0); MEAN CORPUSCULAR HEMOGLOBIN 27 PG (26.0-33.0); MEAN CORPUSCULAR HGB CONC 32 g/dl (31.0-36.0); MEAN CORPUSCULAR VOLUME 84 fL (80-96); MONOCYTES # (AUTO) 0.3 /CMM (0.1-1.30); MONOCYTES % (AUTO) 1.9 % (2.0-12.0); NEUTROPHILS # (AUTO) 15.4 /CMM (1.8-8.9); NEUTROPHILS % (AUTO) 91.9 % (43.0-81.0); PLATELET COUNT (AUTO) 190 /CMM (150-450); RDW COEFFICIENT OF VARIATION 17.6 (11.5-15.0); RED BLOOD CELL COUNT(AUTO) 4.17 MIL/uL (4.5-6.0); WHITE BLOOD COUNT (AUTO) 16.8 K/uL (4.3-11.0)
[2016-07-25] MEDS: BOOST PLUS FOOD-CHOCLATE 237 ML BOX PO SCH ×3 (08:19→16:39)
[2016-07-25] MEDS: KETOROLAC TROMETHAMINE INJ 30 MG/ML VIAL IV PRN ×2 (08:20→17:31)
[2016-07-25] MEDS: Z GUARD REMEDY 2 OZ OINT TP SCH (08:22)
[2016-07-25] MEDS: HYDROGEL DRESSING 90 GM TUBE TP SCH (08:22)
[2016-07-25 08:32] LABS: CALCIUM, SERUM 7.5 mg/dL (8.5-10.1); CREATININE 1.2 mg/dL (0.6-1.3); MAGNESIUM 1.8 mg/dL (1.8-2.4); PHOSPHORUS 3.8 mg/dL (2.5-4.9); POTASSIUM 3.7 mmol/L (3.5-5.1)
[2016-07-25 08:47] VITALS: BP 112/81
[2016-07-25] MEDS: IV NS 0.9% 1,000 ML IV PRN ×2 (09:38→21:30)
[2016-07-25] MEDS: MEGESTROL ACETATE SUSP 400 MG/10 ML UDC PO SCH (09:38)
[2016-07-25] MEDS: MULTIVITAMIN LIQ 5 ML UDC PO SCH (09:38)
[2016-07-25] MEDS: ASCORBIC ACID 500 MG TABLET PO SCH (09:38)
[2016-07-25 10:31] LABS: ANISOCYTOSIS 2+; BAND % (MANUAL) 7 % (0.0-5.0); EOSINOPHILS % (MANUAL) 1 % (0-4); HYPOCHROMASIA 1+; LYMPHOCYTES % (MANUAL) 4 % (16-48); MONOCYTES % (MANUAL) 2 % (0-11.0); NEUTROPHILS % (MANUAL) 86 (42-76); PLATELET ESTIMATE ADEQUATE
--- NOTE | 2016-07-25 12:22 | NUR ---
Social service consult requested by Med Surg RADHA Banda to inquire if pt. has any family. LUCIO met with pt's caregiver Alexei Parmar, outside pt's room. Alexei informed LUCIO that pt. has a sister Lawanda Berrios who resides in [place]. [place] [address], [place]. [address]. SW contacted Lawanda who informed LUCIO that pt. has been depressed for a very long time. LUCIO informed Lawanda that pt. was seen by psychiatrist and prescribed medication, however pt. is non compliant with his medication and refusing care. Lawanda requested to speak with pt. Pt's caregiver informed LUCIO that pt. last week at home mentioned to him that "he wanted to ". Pt. has a full-time caregiver with [facility]. Pt. is being seen by Dr. Rooney at [facility].
[2016-07-25] MEDS ORDERED: IOHEXOL-350 100 ML VIAL IV ONE (13:55)
[2016-07-25] MEDS ORDERED: CT SWABBABLE VALVE TRANS SET 1 EA INFUS.SET MC ONE (13:55)
[2016-07-25] MEDS ORDERED: IV NS 0.9% 250 ML IV ONE (13:55)
[2016-07-25] MEDS ORDERED: IOHEXOL-300 100 ML VIAL IV ONE (13:55)
--- NOTE | 2016-07-25 14:10 | NUR ---
SW met with pt. bedside. Pt. is a 67 year-old male with no significant prior psychiatric treatment history. Pt. is A& O x 1. Pt. appears lethargic. Pt. is depressed and is taking Cymbalta 30 mg. Pt. was uncooperative with SW and informed SW to "leave me alone". According to psychiatrist Dr. Rooney's report, pt. is not suicidal.
[2016-07-25 16:00] VITALS: BP_SYST 114; BP_SYST 116; BP_DIAS 87
--- NOTE | 2016-07-25 19:10 | NUR ---
RN NOTES RECEIVED PT ASLEEP, HOB ELEVATED, BREATHING REGULAR AND UNLABORED, TOLERATING O2 INHALATION AT 2LPM. WITH OS SAT AT 95%. IV ACCESS ON LEFT FOREARM PATENT AND INTACT WITH ONGOING IVF INFUSING WELL. KEPT COMFORTABLE AND ATTENDED. WILL CONTINUE TO MONITOR PT.
--- NOTE | 2016-07-25 19:36 | NUR ---
RN NOTES PATIENT ENDORSED TO NEXT SHIFT IN STABLE CONDITION FOR CONTINUITY OF CARE. NO SIGNIFICANT CHANGES NOTED. KEPT CLEAN, DRY AND COMFORTABLE. ALL NEEDS ATTENDED. SAFETY MEASURE OBSERVED. CALL LIGHT WITH IN REACH. WILL CONT TO MONITOR.
[2016-07-25 20:00] VITALS: BP 126/90
[2016-07-25] MEDS: DULOXETINE HCL 30 MG CAPSULE.DR PO SCH (21:31)
[2016-07-25 22:00] VITALS: BP 126/90
[2016-07-26] VITALS (7 sets, daily range): BP systolic 82–108; BP diastolic 50–74
[2016-07-26] MEDS: MORPHINE SULFATE INJ 2 MG/ML DISP.SYRIN IM/IV PRN (02:40)
--- NOTE | 2016-07-26 02:40 | NUR ---
RN NOTES PT COMPLAINS OF PAIN ON HIS BOTH LOWER LEG 01/29, MORPHINE 2 MG GIVEN IV AND TOLERATED WELL. WILL CONTINU TO MONITOR PT.
[2016-07-26] MEDS: METRONIDAZOLE 500 MG TABLET PO SCH ×3 (05:25→21:20)
--- NOTE | 2016-07-26 07:10 | NUR ---
RN NOTES PT ASLEEP, HOB ELEVATED, NO SIGNS OF DISTRESS AND DISCOMFORT NOTED. PT IS MORE COMPLIANT WITH TREATMENT, DUE MEDS GIVEN AND TOLERATED WELL. TURNED AND REPOSITIONED SCHEDULED.KEPT PAIN AT TOLERABLE LEVEL. VITAL SIGNS STABLE, AFEBRILE. NO EPISODE OF NAUSEA AND VOMITING. NO EPISODE OF WATERY STOOL. KEPT PT CLEAN AND DRY . ALL NEEDS MET. NDORSED TO MELISSA RN FOR CONTINUITY OF CARE.
[2016-07-26] MEDS: BOOST PLUS FOOD-CHOCLATE 237 ML BOX PO SCH ×3 (07:42→17:44)
[2016-07-26] MEDS: IV NS 0.9% 1,000 ML IV PRN (07:42)
--- NOTE | 2016-07-26 08:00 | NUR ---
MS RN NOTE PT. AWAKE, ALERT. CAREGIVER AT THE BEDSIDE. SIDE RAILS UP. CALL LIGHT WITHIN REACH. MONITOR CLOSELY.
[2016-07-26] MEDS: MEGESTROL ACETATE SUSP 400 MG/10 ML UDC PO SCH (08:58)
[2016-07-26] MEDS: ASCORBIC ACID 500 MG TABLET PO SCH (08:58)
[2016-07-26] MEDS: MULTIVITAMIN LIQ 5 ML UDC PO SCH (08:58)
[2016-07-26] MEDS: Z GUARD REMEDY 2 OZ OINT TP SCH (09:02)
[2016-07-26] MEDS: HYDROGEL DRESSING 90 GM TUBE TP SCH (09:06)
[2016-07-26] MEDS: ONDANSETRON HCL/PF 4 MG/2 ML VIAL IV PRN (10:44)
[2016-07-26] MEDS: KETOROLAC TROMETHAMINE INJ 30 MG/ML VIAL IV PRN (10:52)
[2016-07-26] MEDS ORDERED: FUROSEMIDE 40 MG/4 ML VIAL IV ONE (12:00)
--- NOTE | 2016-07-26 14:40 | NUR ---
complaints of SOB. SAO2 98~99% ON O2 @3L VIA NC. AT THE BEDSIDE. WILL GIVE BREATHING TREATMENT. WILL START SOLU-MEDROL AND ZOSYN IV.
[2016-07-26] MEDS ORDERED: methylPREDNISolone SOD SUCC 125 MG/2ML VIAL IV ONE (14:50)
[2016-07-26] MEDS: IPRATROPIUM NEB FS 0.5 MG/2.5 ML AMPUL.NEB NEB PRN (15:42)
[2016-07-26] MEDS: ALBUTEROL FS 2.5 MG/3 ML VIAL.NEB NEB PRN (15:42)
[2016-07-26] MEDS ORDERED: SECONDARY IV SET 1 EA INFUS.SET MC ONE (17:26)
[2016-07-26] MEDS: PIPERACILLIN /TAZOBACTAM 3.375 G in IV D5W 50 ML IV SCH (17:44)
--- NOTE | 2016-07-26 17:50 | NUR ---
PT. LETHARGIC. BP 82/50. LABOR BREATHING. RR 25. O2@ 3L VIA NC. SAO2 95~96%. CALLED RAPID RESPONSE TEAM.
[2016-07-26 18:11] LABS: ABG BASE EXCESS -10.5 mmol/L; ABG OXYGEN SATURATION 95.3 % (92.0-98.5); ABG PCO2 42.6 mmHg (35.0-45.0); ABG PH 7.212 (7.350-7.450); ABG PO2 92.9 mmHg (75.0-100.0); ABG TOTAL HEMOGLOBIN 10.9 G/dL (13.5-18.0); AaDO2 92.7 mmHg; COHb 0.7 % (0.5-1.5); MetHb 1.1 % (0.0-1.5); O2Hb 93.6 % (94.0-97.0); SITE, ABG Right Brachial; VENT MODE, BG NASAL CANNULA
--- NOTE | 2016-07-26 18:20 | NUR ---
CHARGE NURSE SPOKE WITH PT'S FAMILY REGARDING CODE STATUS. FAMILY WANT TO BE FULL CODE. TRANSFER PT TO THE ICU.
--- NOTE | 2016-07-26 18:35 | NUR ---
PLACED INTO BIPAP DUE TO INCREASED WOB. BIPAP SETTINGS BELOW SET PER RT DRIVEN PROTOCOL: IPAP I5 EPAP 5 RATE 12 FIO2 40% B/S BILATERAL COURSE RHONCHI SXN LARGE AMNT PALE YELLOW SEMITHICK SECRETIONS. BIPAP MACHINE PLUGGED INTO RED OUTLET. Addendum: 07/26/16 at 1837 by LAKSHMI ANGULO RT Amended: Links added.
[2016-07-26] MEDS ORDERED: IV SET PRIMARY PUMP SET 1 EA INFUS.SET MC ONE (18:44)
--- NOTE | 2016-07-26 19:43 | NUR ---
FINISH CLEANER. INITIAL ASSESSMENT. RECEIVED THE PT REST ON THE BED. AWAKE, CONFUSED. BIPAP ON. SETTINGS 15/5 RATE 12, FIO2 40%.SAT 98 %. RANCH MANAGER SHOWING NSR. IV LT HAND MIDLINE. SALINE LOCK. HOB ELEVATED. TURN AND REPOSITION WILL CONTINUE TO MONITOR VITALS.
[2016-07-26 20:14] LABS: ABG BASE EXCESS -8.5 mmol/L; ABG OXYGEN SATURATION 96.6 % (92.0-98.5); ABG PH 7.305 (7.350-7.450); ABG PO2 101.6 mmHg (75.0-100.0); ABG TOTAL HEMOGLOBIN 11.1 G/dL (13.5-18.0); AaDO2 143.4 mmHg; COHb 1.1 % (0.5-1.5); MetHb 0.9 % (0.0-1.5); O2Hb 94.7 % (94.0-97.0); SITE, ABG Right Radial; VENT MODE, BG S/T 12 15/5 40%
[2016-07-26] MEDS ORDERED: PIPERACILLIN /TAZOBACTAM 3.375 G in IV D5W 50 ML IV SCH (21:00)
[2016-07-26] MEDS: methylPREDNISolone SOD SUCC 125 MG/2ML VIAL IV SCH ×2 (21:20→21:49)
[2016-07-26] MEDS: DULOXETINE HCL 30 MG CAPSULE.DR PO SCH (21:20)
--- NOTE | 2016-07-26 21:49 | NUR ---
RN NOTES DID NOT ADMINISTER SOLUMEDROL 60MG IV DUE FOR 07/26 2200 SINCE THERE IS ANOTHER ONE SCHEDULED FOR 07/27. SOLUMEDROL 60MG IV IS Q6H. WILL ADMINISTER DOSE SCHEDULED FOR 07/27 INSTEAD. PRIMARY RN NOTIFIED AND CONFIRMED
[2016-07-27] VITALS (71 sets, daily range): BP systolic 71–120; BP diastolic 35–81
[2016-07-27] MEDS: PIPERACILLIN /TAZOBACTAM 3.375 G in IV D5W 50 ML IV SCH ×3 (00:47→11:40)
[2016-07-27] MEDS: methylPREDNISolone SOD SUCC 125 MG/2ML VIAL IV SCH ×2 (00:48→05:36)
--- NOTE | 2016-07-27 03:33 | NUR ---
auricular detoxification specialist. am care. oral care, bed bath given. linen changed. bipap off. simple mask placed. sat 98%. hob elevated. npo. turn and reposition q2h. afebrile. bulb tester showing nsr. afebrile. will continue to monitor vitals.
[2016-07-27] MEDS ORDERED: IV NS 0.9% 250 ML IV ONE (04:24)
[2016-07-27 05:03] LABS: HEMATOCRIT 34 % (39-51); HEMOGLOBIN 10.6 g/dL (13.5-17.5); LYMPHOCYTES # (AUTO) 0.5 /CMM (0.8-4.8); LYMPHOCYTES % (AUTO) 2.2 % (20.0-44.0); MEAN CORPUSCULAR HEMOGLOBIN 27 PG (26.0-33.0); MEAN CORPUSCULAR HGB CONC 32 g/dl (31.0-36.0); MEAN CORPUSCULAR VOLUME 86 fL (80-96); MONOCYTES # (AUTO) 0.2 /CMM (0.1-1.30); MONOCYTES % (AUTO) 0.7 % (2.0-12.0); NEUTROPHILS # (AUTO) 22.6 /CMM (1.8-8.9); NEUTROPHILS % (AUTO) 97.1 % (43.0-81.0); PLATELET COUNT (AUTO) 224 /CMM (150-450); RDW COEFFICIENT OF VARIATION 18.4 (11.5-15.0); RED BLOOD CELL COUNT(AUTO) 3.89 MIL/uL (4.5-6.0); WHITE BLOOD COUNT (AUTO) 23.2 K/uL (4.3-11.0)
[2016-07-27 05:26] LABS: CALCIUM, SERUM 7.3 mg/dL (8.5-10.1); CREATININE 2.3 mg/dL (0.6-1.3); MAGNESIUM 2.2 mg/dL (1.8-2.4); PHOSPHORUS 7.6 mg/dL (2.5-4.9); POTASSIUM 5.3 mmol/L (3.5-5.1)
[2016-07-27] MEDS ORDERED: IV NS 0.9% 250 ML IV PRN (05:30)
[2016-07-27] MEDS: METRONIDAZOLE 500 MG TABLET PO SCH ×3 (05:36→21:30)
--- NOTE | 2016-07-27 05:46 | NUR ---
pt returned to bipap due to increased rr Addendum: 07/27/16 at 0547 by LUCAS CAMPO RT Amended: Links added.
--- NOTE | 2016-07-27 05:47 | NUR ---
pt agitated and refusing bipap. pt placed on 10 L simple mask Addendum: 07/27/16 at 0548 by LUCAS RAY Amended: Links added.
[2016-07-27 06:16] LABS: BAND % (MANUAL) 33 % (0.0-5.0); LYMPHOCYTES % (MANUAL) 2 % (16-48); MONOCYTES % (MANUAL) 4 % (0-11.0); NEUTROPHILS % (MANUAL) 61 (42-76)
--- NOTE | 2016-07-27 06:16 | NUR ---
agricultural lender. PT REFUSED BIPAP [id number]. OXYGEN MASK PLACED. SAT 99 %.
[2016-07-27 06:17] LABS: ANISOCYTOSIS 2+; HYPOCHROMASIA 1+; PLATELET ESTIMATE ADEQUATE
--- NOTE | 2016-07-27 06:17 | NUR ---
GRAIN CLEANER. PT RESPIRATORY RATE 30. BIPAP PLACED. SETTINGS 15/5,RATE 12, FIO2 40%. SAT 99 %. WILL CONTINUE TO MONITOR.
--- NOTE | 2016-07-27 07:15 | NUR ---
CHILDREN'S ENTERTAINER NOTES RECEIVED PATIENT AWAKE , ALERT , LETHARGIC , NO SIGNS OF DISCOMFORT AT THIS TIME, ON BIPAP SETTINGS OF 15/5 RATE OF 12 FIO2 40% WITH SPO2 OF 100% , SR 75 ON BEDSIDE MONITOR , IV OF RONY MIDLINE WITH NS @ TKO , ALL NEEDS ATTENDED , BED ON LOW AND LOCKED POSITION , SIDE RAILS X2 , HOB @ 45 , WILL CONTINUE TO MONITOR
[2016-07-27] MEDS: BOOST PLUS FOOD-CHOCLATE 237 ML BOX PO SCH ×3 (07:57→16:58)
[2016-07-27] MEDS: ASCORBIC ACID 500 MG TABLET PO SCH (09:00)
[2016-07-27] MEDS: MEGESTROL ACETATE SUSP 400 MG/10 ML UDC PO SCH (09:00)
[2016-07-27] MEDS: MULTIVITAMIN LIQ 5 ML UDC PO SCH (09:00)
[2016-07-27] MEDS: Z GUARD REMEDY 2 OZ OINT TP SCH (09:16)
[2016-07-27] MEDS: HYDROGEL DRESSING 90 GM TUBE TP SCH (09:17)
--- NOTE | 2016-07-27 09:19 | NUR ---
RESEARCH CHEMIST NOTES AM MEDS REFUSED BY PATIENT , EXPLAINED THE BENEFITS OF IT , PATIENT VERBALIZED UNDERSTANDING , STILL REFUSES Addendum: 07/27/16 at 0930 by PENG HOPPER RN DR JEAN MONTGOMERY
--- NOTE | 2016-07-27 09:45 | NUR ---
LAST REPAIRER HELPER NOTES DR PENA AT BEDSIDE , NOTIFY PT HAS SWELLING @ RIGHT LOWER EXT , MD ORDERED DUPLEX VENOUS STUDIES OF R LOWER EXT TO R/O DVT , S/P SENIOR FIELD ENGINEER DUE TO RESPIRATORY DISTRESS , CURRENTLY ON BIPAP SETTINGS ORDERED SPO2 OF 100%% , WBC 23.2 , NA 146, K 5.3 , BUN 65 , CREATININE 2.3 , CA 7.3 , PHOS OF 7.6 , PER MD START PT ON IVF OF NS @ 75ML/HR, DR KIM AT BEDSIDE NOTIFIED PT S/P SENIOR FIELD ENGINEER DUE TO RESPIRATORY DISTRESS , CURRENTLY ON BIPAP WITH SETTINGS OF 15/5 RATE 12 FIO2 40% WITH SPO2 OF 100% , ,DISCUSSED ABG PRE AND POST BIPAP AND CHEST XRAY RESULT FOR TODAY , PER MD ORDER ABG FOR TODAY ,
[2016-07-27] MEDS ORDERED: IV NS 0.9% 1,000 ML IV PRN ×2 (10:30→11:30)
[2016-07-27 10:57] LABS: ABG BASE EXCESS -9.6 mmol/L; ABG PCO2 37.5 mmHg (35.0-45.0); ABG PH 7.264 (7.350-7.450); ABG PO2 113.2 mmHg (75.0-100.0); ABG TOTAL HEMOGLOBIN 10.7 G/dL (13.5-18.0); AaDO2 128.9 mmHg; COHb 0.8 % (0.5-1.5); MetHb 0.6 % (0.0-1.5); O2Hb 95.5 % (94.0-97.0); SITE, ABG Right Radial
--- NOTE | 2016-07-27 11:15 | NUR ---
FUNERAL LOCATION MANAGER NOTES ABG RESULT RELAYED TO DR KIM , PER MD ,GIVE 1 AMP OF SODIUM BICARB IVP , CHANGE IV FLUIDS TO D5W WITH 100 MEQ SODIUM BICARBONATE @ 125ML/HR , FOLLOW UP WITH GI DUE TO METABOLIC ACIDOSIS DUE TO C DIFF COLITIS . ORDERS CARRIED OUT
[2016-07-27] MEDS ORDERED: SODIUM BICARBONATE SYR 50 MEQ/50 ML DISP.SYRIN IV ONE (11:30)
[2016-07-27] MEDS ORDERED: SECONDARY IV SET 1 EA INFUS.SET MC ONE (11:32)
[2016-07-27] MEDS ORDERED: IV SET PRIMARY PUMP SET 1 EA INFUS.SET MC ONE ×4 (11:32→21:57)
[2016-07-27] MEDS: Sodium Bicarbonate 100 MEQ in IV D5W 1,000 ML IV PRN ×2 (11:40→21:32)
--- NOTE | 2016-07-27 12:12 | NUR ---
PAIRER NOTES NOTIFIED DR PENA PT IS NPO , LETHARGIC , UNABLE TO SWALLOW , PT HAS PO ANTIBIOTICS ORDERED , PER MD INSERT NGT
[2016-07-27] MEDS ORDERED: VANCOMYCIN HCL 125 MG/2.5 ML ORAL.SUSP PO SCH ×2 (13:00)
--- NOTE | 2016-07-27 13:30 | NUR ---
FAMILY WORKER NOTES 1210 FC PLACED ORDERED , NOTED WITH MINIMAL BLEEDING , NO RESISTANCE NOTED , NOTED WITH AMANDA URINE WITH SOME SEDIMENTS , URINE SAMPLE OBTAINED AND SENT TO LAB 1230 DR ALVINO MYERS AT BEDSIDE NOTIFIED PT DIAGNOSIS , AGB RESULT SHOWS METABOLIC ACIDOSIS , NA 146 , K 5.3 , BUN 65 , CREATININE 2.3 , A 7.3 , PHOS 7.6 , 1 AMP BICARB GIVEN IVP AND PT ON D5W WITH SODIUM BICARBONATE 100 MEQ @ 125ML/HR , TOGETHER WITH NS @ 100ML/HR, NO BLADDER DISTENTION , PER MD PUT KELLER CATHETER . @ 1320 DR MALLOY PAGED FOR FOLLOW UP REGARDING PT C DIFF COLITIS AND METABOLIC ACIDOSIS , MD AWARE , NO NEW ORDERS RECEIVED @ [address] KIM REGARDING GI FOLLOW UP , THAT DR MALLOY CANNOT DO SOME THING ABOUT IT PT REFUSES TREATMENT , SUGGEST ID TO BE ON THE CASE FOR C DIFF , NOTIFIED DR KIM ABOUT PT IV OF NS @ 100ML/HR TOGETHER WITH D5W WITH SODIUM BICARBONATE 100MEQ @ 125ML/HR , PER CONTINUE NS @ 100ML/HR X1 AND DC . @ [address] , VERIFIED VIA AUSCULATION NOTED GURGLING SOUND A STOMACH REGION , WILL ORDER STAT CHEST XRAY TO VERIFY PLACEMENT \
[2016-07-27 14:05] LABS: ABG OXYGEN SATURATION 97.7 % (92.0-98.5); ABG PCO2 43.3 mmHg (35.0-45.0); ABG PH 7.289 (7.350-7.450); ABG PO2 130.4 mmHg (75.0-100.0); ABG TOTAL HEMOGLOBIN 10.1 G/dL (13.5-18.0); COHb 0.9 % (0.5-1.5); MetHb 0.9 % (0.0-1.5); O2Hb 95.9 % (94.0-97.0); SITE, ABG Right Radial; VENT MODE, BG BIPAP 15/5; VT, ABG 12 mL
--- NOTE | 2016-07-27 14:19 | NUR ---
CIVIL CLERK NOTES DR KIM AT BEDSIDE . NOTIFIED ABG RESULT , ON BIPAP SETTINGS ORDERED , WITH SPO2 OF 100% , TACHYPNEIC RR 30-35 , DEEP RESPIRATIONS , PER MD IF SISTER WANTS FULL TREATMENT , INTUBATED THE PT . IF CODE STATUS IS CHANGED , CONTINUE BIPAP TREATMENT
[2016-07-27 15:49] LABS: CREATININE, URINE 61.3 MG/DL (30.0-125.0)
--- NOTE | 2016-07-27 16:30 | NUR ---
AND DRYING SUPERVISOR COOKING CASING NOTES DR PENA SPOKE WITH SISTER REGARDING CODE STATUS AND PLAN OF CARE , PER MD CONTINUE FULL CODE AND INTUBATE PT , NOTIFIED DR PENA THAT VENTILATION PERFUSION TEST IS NOT DONE PT IS NOT STABLE AND PT ON CONTINUOUS BIPAP. AWARE
[2016-07-27] MEDS: ACIDOPHILUS/BULGARICUS 1 EACH TAB.CHEW PO SCH (16:58)
--- NOTE | 2016-07-27 17:00 | NUR ---
RN ACUTE DIALYSIS NOTES NERA ID AT BEDSIDE , NOTIFIED PT WBC OF 23.2 WITH POSITIVE STOL C DIFF ,STILL HAVING DIARRHEA NOTED WITH BROWNISH LIQUID STOOL VIA FLEXI SEAL , AFEBRILE , NOTED WITH METABOLIC ACIDOSIS PER ABG , PATROL DEPUTY SHERIFF AWARE
[2016-07-27] MEDS: PROPOFOL 100 ML IV PRN (17:30)
--- NOTE | 2016-07-27 17:30 | NUR ---
AUTOMOTIVE INTERNET SALES CONSULTANT NOTES PT INTUBATED ORDERED BY DR PENA AND DR KIM , RT AT BEDSIDE , DR BOYD FROM ER INITIATED INTUBATION , ROCURONIUM BROMINE 80MG AND ETOMIDATE 20MG GIVEN IVP PER ER PHYSICIAN ORDER , SUCCESSFUL INTUBATED WITH AUDIBLE LUNG SOUND THROUGHOUT WITH ETT 7. , WITH VENT SETTINGS ORDERED BY MD , SUCTION BY RT NOTED WITH COPIUS AMOUNT OF WELLS SECRETION , STAT CHEST XRAY ORDERED AND ABG POST INTUBATION , .
--- NOTE | 2016-07-27 17:35 | NUR ---
Late entry: Patient intubated by ER physician with 7.5 ETT taped at 23cm mid lip line via anchor fast. Positive color change on capnometer and bilateral BS noted. Placed on PB 840 vent with settings per physician's orders. Vent alarms set and audible. Suctioned copious amount of thick ku secretions. Ambu bag at [facility].
[2016-07-27 18:43] LABS: ABG BASE EXCESS -4.7 mmol/L; ABG OXYGEN SATURATION 97.9 % (92.0-98.5); ABG PCO2 35.6 mmHg (35.0-45.0); ABG PH 7.368 (7.350-7.450); ABG PO2 149.4 mmHg (75.0-100.0); ABG TOTAL HEMOGLOBIN 9.3 G/dL (13.5-18.0); AaDO2 167.1 mmHg; COHb 0.6 % (0.5-1.5); O2Hb 96.3 % (94.0-97.0); PEEP,BG 0 cm H2O; SITE, ABG Right Radial; VT, ABG 550 mL
--- NOTE | 2016-07-27 18:45 | NUR ---
TECHNICAL SUPERVISOR NOTES NOTIFIED DR PENA OF BP 65/55 , PER MD ORDER LEVOPHED STANDARD CONCENTRATION TITRATION PER PROTOCOL , ORDERS CARRIED OUT
--- NOTE | 2016-07-27 18:46 | NUR ---
VALUE STREAM MANAGER NOTES RECEIVED ORDER FROM DR PENA TO INSERT PICC LINE .
[2016-07-27] MEDS: NOREPINEPHRINE 8 MG in IV D5W 500 ML IV PRN (19:07)
[2016-07-27] MEDS: VANCOMYCIN HCL 125 MG/2.5 ML ORAL.SUSP PO SCH (19:08)
--- NOTE | 2016-07-27 19:15 | NUR ---
BUILDING MECHANIC NOTES PT SEDATED , ORALLY INTUBATED ETT 7.10/[address] VERIFIED VIA CHEST XRAY , LUNG SOUND NOTED WITH DALLIN THROUGHOUT , ON MECHANICAL VENTILATOR OF AC 16 TV 550 FIO2 50% PEEP 0 WITH SPO2 OF 100% , SR 75 ON BEDSIDE MONITOR , FC DRAINING VIA GRAVITY WITH AMANDA COLORED URINE , R NARE NGT IN PLACE CLAMPED . FLEXISEAL DRAINING VIA GRAVITY WITH BROWNISH LIQUID STOOL , RONY MIDLINE WITH NS @ 100ML/HR , D5W WITH 100 MEQ SODIUM BICARB @ 125ML/HR , DIPRIVAN @ 5MCG/MIN , LEVOPHED @ 5MCG/MIN INFUSING WELL , ALL NEEDS ATTENDED , BED ON LOW AND LOCKED POSITION , SIDE RAILS X2 , HOB @ 45 , REPORT GIVEN TO PM NURSE FOR CONTINUITY OF CARE
[2016-07-27] MEDS ORDERED: ETOMIDATE 2 MG/ML VIAL IV ONE (19:39)
[2016-07-27] MEDS ORDERED: ROCURONIUM BROMIDE 100 MG/10 ML VIAL IV ONE (19:50)
--- NOTE | 2016-07-27 20:00 | NUR ---
received pt from day shift, sedated on diprivan at 5mcg, SR, on the vent, lungs congested, pitting edema all extremities, BLLE DVT reported to STATION BAGGAGE PORTER installation & maintenance executive, receiving levo at 5mcg, NG clamped, rectal tube diarrhea, v/s stable, no pain, pt turned and repositioned, privet sitter at the bedside.
[2016-07-27] MEDS ORDERED: IV D5W 1,000 ML IV ONE (21:11)
[2016-07-27] MEDS ORDERED: SODIUM BICARBONATE SYR 50 MEQ/50 ML DISP.SYRIN ONE (21:12)
[2016-07-27] MEDS: DULOXETINE HCL 30 MG CAPSULE.DR PO SCH (21:30)
[2016-07-27] MEDS ORDERED: HEPARIN INFUSION/D5W 500 ML IV PRN (21:30)
[2016-07-27] MEDS ORDERED: HEPARIN INFUSION/D5W 500 ML IV ONE (21:39)
[2016-07-27 22:36] LABS: INR 1.69 (0.87-1.13); PROTHROMBIN TIME 18.3 SECS (9.5-12.7)
[2016-07-27] MEDS ORDERED: HEPARIN SODIUM, PORCINE 5000 UNITS/1 ML VIAL ONE (22:43)
--- NOTE | 2016-07-27 22:59 | NUR ---
heparin drip started, PTT 39 and bolus given per QUALITY CLOTH TESTER Ele Hoffmann pt has BL leg DVT
[2016-07-27] MEDS ORDERED: HEPARIN SODIUM, PORCINE 5000 UNITS/1 ML VIAL IV ONE (23:00)
[2016-07-28] VITALS (100 sets, daily range): BP systolic 87–118; BP diastolic 47–80
--- NOTE | 2016-07-28 00:35 | NUR ---
pt is resting in the bed, sedated on diprivan at 5mcg, receiving levo at 5mcg and heparin drip at 900units, no bleeding noted, v/s stable, no pain, pt turned and repositioned q2hrs.
[2016-07-28] MEDS: VANCOMYCIN HCL 125 MG/2.5 ML ORAL.SUSP PO SCH ×4 (00:43→18:15)
--- NOTE | 2016-07-28 04:30 | NUR ---
pt is resting in the bed, no acute distress overnight, on levo at 5mcg, sedated on diprivan at 5mcg and heparin drip at 900unit, v/s stable, no pain, very low urine output, will notify pt cleaned, changed and repositioned q2hrs.
[2016-07-28 05:06] LABS: HEMATOCRIT 26 % (39-51); HEMOGLOBIN 8.5 g/dL (13.5-17.5); LYMPHOCYTES # (AUTO) 0.5 /CMM (0.8-4.8); LYMPHOCYTES % (AUTO) 2.3 % (20.0-44.0); MEAN CORPUSCULAR HEMOGLOBIN 28 PG (26.0-33.0); MEAN CORPUSCULAR HGB CONC 33 g/dl (31.0-36.0); MEAN CORPUSCULAR VOLUME 85 fL (80-96); MONOCYTES # (AUTO) 0.4 /CMM (0.1-1.30); MONOCYTES % (AUTO) 1.6 % (2.0-12.0); NEUTROPHILS # (AUTO) 22.1 /CMM (1.8-8.9); NEUTROPHILS % (AUTO) 96.1 % (43.0-81.0); PLATELET COUNT (AUTO) 149 /CMM (150-450); RDW COEFFICIENT OF VARIATION 18.6 (11.5-15.0); RED BLOOD CELL COUNT(AUTO) 3.08 MIL/uL (4.5-6.0)
[2016-07-28 05:12] LABS: CALCIUM, SERUM 6.4 mg/dL (8.5-10.1); CREATININE 2.6 mg/dL (0.6-1.3); MAGNESIUM 2.1 mg/dL (1.8-2.4)
[2016-07-28] MEDS: METRONIDAZOLE 500 MG TABLET PO SCH ×3 (05:19→21:32)
[2016-07-28] MEDS ORDERED: IV D5W 1,000 ML IV ONE (05:58)
[2016-07-28] MEDS ORDERED: SODIUM BICARBONATE SYR 50 MEQ/50 ML DISP.SYRIN ONE (05:59)
[2016-07-28] MEDS: Sodium Bicarbonate 100 MEQ in IV D5W 1,000 ML IV PRN (06:21)
[2016-07-28] MEDS: BOOST PLUS FOOD-CHOCLATE 237 ML BOX PO SCH ×3 (07:36→16:23)
[2016-07-28] MEDS: ACIDOPHILUS/BULGARICUS 1 EACH TAB.CHEW PO SCH ×3 (07:37→16:24)
[2016-07-28] MEDS: MULTIVITAMIN LIQ 5 ML UDC PO SCH (07:37)
[2016-07-28] MEDS: MEGESTROL ACETATE SUSP 400 MG/10 ML UDC PO SCH (07:37)
[2016-07-28] MEDS: ASCORBIC ACID 500 MG TABLET PO SCH (07:37)
--- NOTE | 2016-07-28 08:00 | NUR ---
SHELF STOCKER RECEIVED PT IN BED SEDATED ON PROPOFOL OPENS EYES W/SLIGHT PAIN, PT DOES FOLLOW, IS ON IV FLUIDS, SR ON TELE HR 80S SBP STABLE ON LEVOPHED, PICC LINE DRESSING BLOOD TINGED, PT HAS SLIGHT BLEEDING FROM GUMS PT WAS ON HEPARIN TILL 0500. PT INTUBATED SETTINGS NOTED, O2 SAT 90s TURN AND REPOSITION PT IN BED FALL PRECAUTIONS TAKEN WILL CONTINUE TO MONITOR.
[2016-07-28] MEDS: HYDROGEL DRESSING 90 GM TUBE TP SCH (08:11)
[2016-07-28] MEDS: methylPREDNISolone SOD SUCC 125 MG/2ML VIAL IV SCH (08:11)
[2016-07-28] MEDS: Z GUARD REMEDY 2 OZ OINT TP SCH (08:11)
[2016-07-28 09:55] LABS: IRON, SERUM 61 ug/dl (50-175); TOTAL IRON BINDING CAPACITY 49 ug/dl (250-450)
[2016-07-28] MEDS ORDERED: HEPARIN INFUSION/D5W 500 ML IV PRN (10:00)
[2016-07-28 10:03] LABS: ABG BASE EXCESS -3.4 mmol/L; ABG OXYGEN SATURATION 96.6 % (92.0-98.5); ABG PCO2 34.5 mmHg (35.0-45.0); ABG PH 7.402 (7.350-7.450); ABG PO2 115.3 mmHg (75.0-100.0); ABG TOTAL HEMOGLOBIN 7.5 G/dL (13.5-18.0); AaDO2 94.1 mmHg; COHb 0.5 % (0.5-1.5); MetHb 1.3 % (0.0-1.5); O2Hb 94.9 % (94.0-97.0); PEEP,BG 5 cm H2O; SITE, ABG Right Radial; VENT MODE, BG AC 16; VT, ABG 500 mL
[2016-07-28] MEDS: IV D5/0.45 NACL 1,000 ML IV PRN (11:52)
[2016-07-28] MEDS ORDERED: IV SET PRIMARY PUMP SET 1 EA INFUS.SET MC ONE ×2 (11:54→19:48)
[2016-07-28 11:58] LABS: FREE PSA 0.31 ng/mL (0.00-45); PROSTATE SPECIFIC ANTIGEN SCR 0.92 ng/mL (0.00-4.00); THYROID STIMULATING HORMONE 2.994 uIU/mL (0.358-3.74); URIC ACID 9.4 mg/dL (2.6-7.2)
[2016-07-28] MEDS: ALBUMIN 25% 25 GM in PREMIX 1 EA IV SCH ×2 (12:24→18:12)
[2016-07-28 12:36] LABS: RETICULOCYTE COUNT 1.1 % (0.6-2.5)
[2016-07-28 12:43] LABS: D-DIMER 3.66 mg/L(FEU (0.17-0.50); INR 1.81 (0.87-1.13); PROTHROMBIN TIME 19.7 SECS (9.5-12.7)
[2016-07-28] MEDS: NOREPINEPHRINE 8 MG in IV D5W 500 ML IV PRN (14:00)
--- NOTE | 2016-07-28 17:00 | NUR ---
COTTON BALL MACHINE TENDER PT SISTER AT BEDSIDE NO DISTRESS NOTED 100CC COFFEE GROUND OG TUBE ASPIRATED MD AWARE PELEG NO NEW ORDERS, PT FAMILY WANTS PT TO BE DNR KNOWS, BED BATH GIVEN ALL PT NEEDS MEET FALL PRECAUTIONS TAKEN WILL CONTINUE TO MONITOR.
[2016-07-28] MEDS: PROPOFOL 100 ML IV PRN (18:26)
--- NOTE | 2016-07-28 18:45 | NUR ---
[facility] HEMOGLOBIN 5.[address] PENA ORDERS RECEIVED AND PUT IN THE SYSTEM VINAYAK RN KNOWS ABOUT PT CARE AND PLAN, EMERGENCY CONSENT GIVEN OVER THE PHONE BY MD. NO ACTIVE BLEEDING NOTED AT THIS TIME, VS STABLE STILL ON LOW DOSE LEVOPHED, HEPARIN DRIP STOP ORDERED.
[2016-07-28 18:49] LABS: HEMOGLOBIN 5.9 g/dL (13.5-17.5)
[2016-07-28] MEDS ORDERED: PANTOPRAZOLE 80 MG in IV NS 0.9% 100 ML IV ONE (19:00)
[2016-07-28] MEDS ORDERED: BLOOD IV SET 1 EA INFUS.SET MC ONE (19:07)
[2016-07-28] MEDS ORDERED: PLATELET IV SET 1 EA INFUS.SET MC ONE (19:07)
[2016-07-28] MEDS ORDERED: IV NS 0.9% 250 ML IV ONE ×2 (19:07→20:51)
--- NOTE | 2016-07-28 19:22 | NUR ---
RT Received pt intubated with ETT 7.5 23cm @ lip via anchor fast. Bilateral coarse breath sounds. Vent alarms set and audible. Suctioned copious amount of thick brown secretions. Zandra deras at [facility]. Will continue to monitor pt. Addendum: 07/28/16 at 1958 by AMARI STEWARD RT Amended: Links added.
[2016-07-28 19:27] LABS: BILIRUBIN,DIRECT 0.2 mg/dL (0.0-0.2); BILIRUBIN,TOTAL 0.4 mg/dL (0.2-1.0); TOTAL PROTEIN, SERUM 3.9 g/dL (6.4-8.2)
[2016-07-28] MEDS: PANTOPRAZOLE 80 MG in IV NS 0.9% 500 ML IV PRN (20:09)
--- NOTE | 2016-07-28 20:41 | NUR ---
received pt from day shift, sedated on Diprivan at 5mcg, SR, receiving levo at 8mcg, Protonix drip at 50cc/hr, h/h 5.02/06 will be transfusing, upper GI bleed, on the vent, lungs partially congested, pitting edema all extremities, off of heparin drip last PTT 168, NG clamped, v/s stable, no pain, pt turned and repositioned.
--- NOTE | 2016-07-28 21:00 | NUR ---
blood transfusion started.
[2016-07-28] MEDS: DULOXETINE HCL 30 MG CAPSULE.DR PO SCH (21:32)
[2016-07-29] VITALS (64 sets, daily range): BP systolic 92–121; BP diastolic 49–107
--- NOTE | 2016-07-29 00:28 | NUR ---
pt is resting in the bed, calmly sedated on diprivan at 5mcg, receiving levo at 8mcg, Protonix drip and blood transfusion, v/s stable, no pain, pt turned and repositioned q2hrs.
[2016-07-29] MEDS: ALBUMIN 25% 25 GM in PREMIX 1 EA IV SCH ×2 (00:52→05:04)
[2016-07-29] MEDS: VANCOMYCIN HCL 125 MG/2.5 ML ORAL.SUSP PO SCH ×4 (00:52→19:00)
--- NOTE | 2016-07-29 01:00 | NUR ---
2 units of PRBCs transfused, v/s stable, no transfusion reactions.
--- NOTE | 2016-07-29 03:15 | NUR ---
2 FFPs transfused, v/s stable, no reactions.
--- NOTE | 2016-07-29 03:30 | NUR ---
cryoprecipitate was reordered from [facility] because of leaking bag.
[2016-07-29] MEDS ORDERED: PANTOPRAZOLE 40 MG VIAL ONE (03:39)
[2016-07-29] MEDS ORDERED: IV NS 0.9% 500 ML IV ONE (03:40)
--- NOTE | 2016-07-29 04:13 | NUR ---
pt resting in the bed, v/s stable, no pain, receiving levo at 6 mcg, sedated on diprivan at 5mcg and Protonix drip, pt cleaned, changed and repositioned q2hrs.
[2016-07-29 04:52] LABS: HEMATOCRIT 21 % (39-51); HEMOGLOBIN 7.2 g/dL (13.5-17.5); LYMPHOCYTES # (AUTO) 0.4 /CMM (0.8-4.8); LYMPHOCYTES % (AUTO) 2.6 % (20.0-44.0); MEAN CORPUSCULAR HEMOGLOBIN 28 PG (26.0-33.0); MEAN CORPUSCULAR HGB CONC 33 g/dl (31.0-36.0); MEAN CORPUSCULAR VOLUME 83 fL (80-96); MONOCYTES # (AUTO) 0.5 /CMM (0.1-1.30); MONOCYTES % (AUTO) 2.9 % (2.0-12.0); NEUTROPHILS # (AUTO) 15.1 /CMM (1.8-8.9); NEUTROPHILS % (AUTO) 94.5 % (43.0-81.0); PLATELET COUNT (AUTO) 72 /CMM (150-450); RDW COEFFICIENT OF VARIATION 17.7 (11.5-15.0)
[2016-07-29] MEDS: METRONIDAZOLE 500 MG TABLET PO SCH ×3 (05:04→21:22)
[2016-07-29] MEDS: NOREPINEPHRINE 8 MG in IV D5W 500 ML IV PRN (05:05)
[2016-07-29] MEDS: PANTOPRAZOLE 80 MG in IV NS 0.9% 500 ML IV PRN ×2 (05:05→15:31)
[2016-07-29 05:17] LABS: CALCIUM, SERUM 6.1 mg/dL (8.5-10.1); CREATININE 2.8 mg/dL (0.6-1.3); MAGNESIUM 1.9 mg/dL (1.8-2.4); PHOSPHORUS 5.2 mg/dL (2.5-4.9); POTASSIUM 5.2 mmol/L (3.5-5.1)
[2016-07-29 06:09] LABS: BAND % (MANUAL) 2 % (0.0-5.0); BASOPHILS % (MANUAL) 0 % (0.0-2.0); EOSINOPHILS % (MANUAL) 0 % (0-4); LYMPHOCYTES % (MANUAL) 6 % (16-48); MONOCYTES % (MANUAL) 2 % (0-11.0); NEUTROPHILS % (MANUAL) 90 (42-76)
[2016-07-29 06:10] LABS: ANISOCYTOSIS 1+; HYPOCHROMASIA 1+; PLATELET ESTIMATE DECREASED
[2016-07-29] MEDS: BOOST PLUS FOOD-CHOCLATE 237 ML BOX PO SCH ×3 (08:00→16:09)
[2016-07-29] MEDS ORDERED: IV SET PRIMARY PUMP SET 1 EA INFUS.SET MC ONE ×2 (08:08→09:55)
[2016-07-29 08:22] LABS: VIT D, 25-HYDROXY 16.6 ng/mL (30.0-100.0)
--- NOTE | 2016-07-29 08:50 | NUR ---
ICU/RN: ELEVATED BUN/CT DISCUSSED WITH NEPHRO DR MYERS. OTHER LABS AND URINE OUTPUT DISCUSSED. PER , "WE'LL HOLD OFF HD FOR NOW."
[2016-07-29] MEDS ORDERED: Calcium Gluconate 1GM/10ML 4.65 MEQ in IV D5W 50 ML IV ONE (09:00)
[2016-07-29] MEDS ORDERED: DEXTROSE 50%-WATER 50 ML DISP.SYRIN IVP ONE (09:00)
[2016-07-29] MEDS ORDERED: INSULIN REGULAR, HUMAN 100 UNIT/ML 3 ML VIAL IV ONE (09:00)
[2016-07-29] MEDS: PROPOFOL 100 ML IV PRN (09:06)
[2016-07-29] MEDS: MEGESTROL ACETATE SUSP 400 MG/10 ML UDC PO SCH (09:07)
[2016-07-29] MEDS: ASCORBIC ACID 500 MG TABLET PO SCH (09:07)
[2016-07-29] MEDS: ACIDOPHILUS/BULGARICUS 1 EACH TAB.CHEW PO SCH ×3 (09:07→16:09)
[2016-07-29] MEDS: MULTIVITAMIN LIQ 5 ML UDC PO SCH (09:07)
[2016-07-29] MEDS: methylPREDNISolone SOD SUCC 125 MG/2ML VIAL IV SCH (09:08)
[2016-07-29] MEDS: HYDROGEL DRESSING 90 GM TUBE TP SCH (09:09)
[2016-07-29] MEDS: Z GUARD REMEDY 2 OZ OINT TP SCH (09:09)
--- NOTE | 2016-07-29 10:30 | NUR ---
ICU/RN: DR PENA AT THE BEDSIDE, HAD LENGTHY DW SISTER, TAD REGARDING POC FOR PT. PT WILL REMAIN A DNR, HOWEVER WILL CONTINUE TO PROCEED WITH AGGRESSIVE TREATMENT.
--- NOTE | 2016-07-29 11:47 | NUR ---
ICU/RN: CALL BLOOD BANK REGARDING REMAINING CRYOPRECIPITATE ORDERED, PER TECH STILL WAITING FOR UNIT.
[2016-07-29 12:16] LABS: *SPE A/G RATIO 0.8 (0.7-1.7); *SPE ALBUMIN 1.8 g/dL (2.9-4.4); *SPE ALPHA-1-GLOBULIN 0.1 g/dL (0.0-0.4); *SPE ALPHA-2-GLOBULIN 0.5 g/dL (0.4-1.0); *SPE BETA GLOBULIN 0.7 g/dL (0.7-1.3); *SPE GLOBULIN, TOTAL 2.4 g/dL (2.2-3.9); *SPE M-SPIKE Not Observed g/dL (Not Observed); *SPE PROTEIN TOTAL 4.2 g/dL (6.0-8.5); *SPEGAMMA GLOBULIN 1.1 g/dL (0.4-1.8)
[2016-07-29] MEDS ORDERED: PLATELET IV SET 1 EA INFUS.SET MC ONE (12:45)
[2016-07-29 13:13] LABS: CARCINOEMBRYONIC AG (CEA) 25.3 ng/mL (0.0-4.7)
--- NOTE | 2016-07-29 15:55 | NUR ---
ICU/RN: SPOKE WITH RECEIVING DISTRIBUTION STATION OPERATOR WILFREDO Padilla REGARDING CRYOPRECIPITATE INFUSION. UNABLE TO ADMINISTER; BARCODE DOES NOT REGISTER AND MATCH ON EMAR, LAB AND IT STILL UNABLE TO RESOLVE BARCODE ISSUES. UNIT , LAB WILL BRING UP NEW UNIT.
--- NOTE | 2016-07-29 16:16 | NUR ---
ICU/RN: DR ALEXANDRE AT BEDSIDE FOR HEMATOLOGY CONSULT. NOTIFIED MD THAT CRYOPRECIPITATE NOT ADMINISTERED YET; PER MD, GIVE 20 BAGS CRYOPRECIPITATE TOTAL INSTEAD. NOTED, CARRIED OUT.
[2016-07-29] MEDS: IV D5/0.45 NACL 1,000 ML IV PRN (16:25)
[2016-07-29] MEDS ORDERED: METOCLOPRAMIDE HCL 10 MG/2 ML VIAL IV ONE (16:30)
[2016-07-29] MEDS ORDERED: WARFARIN SODIUM 2.5 MG TABLET PO SCH (17:00)
[2016-07-29] MEDS ORDERED: EPINEPHRINE (1:10,000) SYRINGE 1 MG/10 ML DISP.SYRIN ONE (17:16)
--- NOTE | 2016-07-29 17:16 | NUR ---
ICU/RN: AFTER MULTIPLE CALLS OUT TO LAB, WILFREDO Padilla AND SYLVIA NIETO, CNO SAYS OK TO INITIATE DOWNTIME PROCEDURE FOR PENDING CRYOPRECIPITATE TRANSFUSION. PER CNO, "FIRST FOUR BARCODE CHECKS MATCH ON [facility], THE UNIT NUMBER, PT NAME, WRISTBAND NUMBER, SOURCE NUMBER. IT IS SAFE TO SAY THAT THE PRODUCT NUMBER MATCHES." UNABLE TO SCAN 5TH BARCODE CHECK TO VERIFY PRODUCT TYPE ON EMAR, PER WILFREDO Padilla, NEW HOME SALES CONSULTANT AND SYLVIA PINEDA MESSAGE THAT STATES "UNIT DOES NOT MATCH" IS DUE TO BARCODE/ IT ISSUES.
--- NOTE | 2016-07-29 17:41 | NUR ---
ICU/RN: VERIFIED CRYOPRCIPTATE WITH 2ND RN, OVERRIDE PERFORMED FOR LAST BARCODE DIRECTED BY DONITA WARD. LAST SCAN STATES "SCANNED BARCODE DOES NOT MATCH PRODUCT."OPERATION SPECIALIST AWARE
--- NOTE | 2016-07-29 17:45 | NUR ---
ICU/RN: S/P EGD WITH DR MONTIEL, PER MD, NO ACTIVE GI BLEED, ONLY "SEVERE EROSIVE ESOPHAGITIS. YOU CAN D/C THE PROTONIX DRIP, REPLACE WITH PROTONIX 40 MG IV DAILY, REPEAT KUB TO CHECK FOR ILEUS PRIOR TO RESUMING TUBE FEEDING." NOTED, CARRIED OUT.
--- NOTE | 2016-07-29 17:45 | NUR ---
MULTIPLE D/W CNO SYLVIA PINEDA AND JOY LOADING MACHINE OPERATOR WILFREDO WHO ARE AWARE THAT CRYOPRECIPITATE BARCODES ON PRODUCT BAG DO NOT SCAN PROPERLY AND BOTH DIRECT THAT ICU NURSE ADMINISTER PRODUCT REGARDLESS. PRODUCT VERIFIED USING DOUBLE CHECK READING OF NUMBERS BY TWO RNS
--- NOTE | 2016-07-29 19:28 | NUR ---
ICU/RN: PT IN BED, SEDATED, INTUBATED, NO DISTRESS NOTED. IVF INFUSING WELL THROUGH RONY PICC, ALL TRANSFUSIONS COMPLETE AND TOLERATED WELL. FLEXISEAL IN PLACE WITH 450 TOTAL OUTPUT. NO LEAKAGE NOTED. NGT SET TO CONTINUOUS SUCTION SET BY DR MONTIEL S/P IMER. FC DRAINING WELL TO GRAVITY. CARE ENDORSED TO PM RN FOR MARINA.
[2016-07-29] MEDS: DULOXETINE HCL 30 MG CAPSULE.DR PO SCH (21:22)
--- NOTE | 2016-07-29 21:22 | NUR ---
LEAD MAINTENANCE TECHNICIAN DF RECEIVED PT TO ROOM#259 PT INTUBATED TOLERATING AC VENT SETTINGS. VSS. SINUS SHAUN ON MONITOR RATE OF 50,2 PER REPORT THIS IS PT,S BASELINE WITH RUNS OF CONTROLLED AFIB. BP STABLE AT 110/53 ON LEVOPHED AT 2MCG MIN UNABLE TO WEAN OFF LEVOPHED PER REPORT RECORDS SBP WILL DECREASE BELOW 90. PT S/P EGD TODAY WITH SEVERE ESOPHAGITIS. PT HAS PENDING KUB TO RULE OUT ILEUS. I CALLED RADIOLOGY DEPT AT [id number] NO ANSWER I REPLACED THE ORDER TO STAT NOW SINCE ORIGINAL ORDER IS PENDING SINCE 1730 PM. PT AROUSES TO VERBAL FOLLOWS COMMANDS, PT DENIES PAIN. PT WITH PITTING EDEMA TO HANDS/FEET ANASARCA PRESENT. NO DISTRESS NOTED. AWAITING KUB/RESULTS. Addendum: 07/29/16 at 2230 by ELYSSA ZAMUDIO RN KUB DONE AWAITING RESULTS.
[2016-07-30] VITALS (58 sets, daily range): BP systolic 82–147; BP diastolic 48–80
[2016-07-30] MEDS: VANCOMYCIN HCL 125 MG/2.5 ML ORAL.SUSP PO SCH ×4 (01:05→18:06)
[2016-07-30] MEDS ORDERED: IV SET PRIMARY PUMP SET 1 EA INFUS.SET MC ONE (03:14)
[2016-07-30] MEDS: PROPOFOL 100 ML IV PRN (03:33)
[2016-07-30] MEDS: NOREPINEPHRINE 8 MG in IV D5W 500 ML IV PRN (03:34)
[2016-07-30 05:12] LABS: HAPTOGLOBIN 171 mg/dL (34-200)
--- NOTE | 2016-07-30 05:15 | NUR ---
METAL MACHINIST DF BP OF 82/40 LEVOPHED INCREASED TO 5MCG/MIN AT 0630 BP OF 147/72 I DECREASED TITRATED LEVOPHED TO 1 MCG. PT SENSITIVE TO LEVOPHED UNABLE TO TITRATE OFF WHEN OFF AR AT 1 MCG SBP FALLS BELOW 90. KUB RESULTS STILL PENDING. I CALLED RADIOLOGY THEY CONTACT RADIOLOGIST REGARDING RESULTS.
[2016-07-30] MEDS: METRONIDAZOLE 500 MG TABLET PO SCH ×3 (05:20→21:58)
[2016-07-30 05:27] LABS: HEMATOCRIT 25 % (39-51); HEMOGLOBIN 8.2 g/dL (13.5-17.5); LYMPHOCYTES # (AUTO) 0.4 /CMM (0.8-4.8); LYMPHOCYTES % (AUTO) 2.4 % (20.0-44.0); MEAN CORPUSCULAR HEMOGLOBIN 27 PG (26.0-33.0); MEAN CORPUSCULAR HGB CONC 33 g/dl (31.0-36.0); MEAN CORPUSCULAR VOLUME 83 fL (80-96); MONOCYTES # (AUTO) 0.1 /CMM (0.1-1.30); MONOCYTES % (AUTO) 0.5 % (2.0-12.0); NEUTROPHILS # (AUTO) 17.9 /CMM (1.8-8.9); NEUTROPHILS % (AUTO) 97.1 % (43.0-81.0); PLATELET COUNT (AUTO) 78 /CMM (150-450); RDW COEFFICIENT OF VARIATION 18.6 (11.5-15.0); RED BLOOD CELL COUNT(AUTO) 3.03 MIL/uL (4.5-6.0); WHITE BLOOD COUNT (AUTO) 18.5 K/uL (4.3-11.0)
[2016-07-30 05:45] LABS: CALCIUM, SERUM 6.6 mg/dL (8.5-10.1); CREATININE 2.5 mg/dL (0.6-1.3); MAGNESIUM 1.7 mg/dL (1.8-2.4); PHOSPHORUS 4.5 mg/dL (2.5-4.9); POTASSIUM 4.1 mmol/L (3.5-5.1)
[2016-07-30 06:48] LABS: BAND % (MANUAL) 3 % (0.0-5.0); LYMPHOCYTES % (MANUAL) 3 % (16-48); MONOCYTES % (MANUAL) 2 % (0-11.0); NEUTROPHILS % (MANUAL) 92 (42-76); PLATELET ESTIMATE DECREASED
[2016-07-30 06:49] LABS: ANISOCYTOSIS 1+
--- NOTE | 2016-07-30 07:15 | NUR ---
COURT USHER NOTES RECEIVED PATIENT SEDATED , RESPONSIVE TO PAIN STIMULATION , NOT IN ACUTE DISTRESS , RESPIRATIONS EVEN AND UNLABORED ,SPO2 OF 100% VIA MECHANICAL VENTILATOR SETTINGS ORDERED , ETT 7. IN PLACE , SB 59 ON BEDSIDE MONITOR , R NGT CONNECTED TO LOW INTERMITTENT SUCTION DRAINING WITH DARK GREEN LIQUID OUTPUT , FC DRAINING WELL VIA GRAVITY WITH AMANDA CLOUDY URINE , FLEXI SEAL DRAINING VIA GRAVITY WITH BLACK LIQUID STOOL , ON BARNEY BED ,RONY PICC LINE TRIPLE LUMEN PATENT AND INTACT WITH GOOD BLOOD RETURN , LEVOPHED @ 1MCG/MIN , DIRPRIVAN @ 25MCG/MIN , D5NS @ 50ML/HR INFUSING WELL , ALL NEEDS ATTENDED , BED ON LOW AND LOCKED POSITION, SIDE RAILS X2 CALL LIGHT WITHIN REACH ,WILL CONTINUE TO MONITOR
[2016-07-30] MEDS: BOOST PLUS FOOD-CHOCLATE 237 ML BOX PO SCH ×3 (08:00→16:41)
[2016-07-30] MEDS: ASCORBIC ACID 500 MG TABLET PO SCH (08:25)
[2016-07-30] MEDS: MEGESTROL ACETATE SUSP 400 MG/10 ML UDC PO SCH (08:25)
[2016-07-30] MEDS: MULTIVITAMIN LIQ 5 ML UDC PO SCH (08:25)
[2016-07-30] MEDS: ACIDOPHILUS/BULGARICUS 1 EACH TAB.CHEW PO SCH ×3 (08:25→16:45)
--- NOTE | 2016-07-30 08:39 | NUR ---
PT RECEIVED ORALLY INTUBATED ON [facility]. VENT SETTINGS ORDERED. ALARMS SET AND AUDIBLE. ET TUBE SECURED AT 23CM. B/S COURSE PT SUCTIONED NEEDED. LARGE THICK WELLS SPUTUM. VENT PLUGGED INTO RED OUTLET AMBUBAG AT HEAD OF BED. Addendum: 07/30/16 at 0842 by TETO GREGG RT Amended: Links added.
--- NOTE | 2016-07-30 09:00 | NUR ---
POLYSOMNOGRAPH TECH NOTES DR PENA AT BEDSIDE , NOTIFIED PT OFF LEVOPHED @ 0800 WITH BP OF 95/55 , SB 56 ON BEDSIDE MONITOR , R NGT ON LOW INTERMITTENT SUCTION DRAINING WITH DARK GREEN LIQUID OUTPUT WITH HYPOACTIVE BOWEL SOUNDS , FLEXI SEAL NOTED WITH BLACK LIQUID STOOL , WBC 18.5 , H/H 8.2/25 , PLATELETS 78 , BUN 99 CREATININE 2.5 , NOTIFIED EG RESULT , FOR IVC FILTER @ 0900 , PT ON DVT PUMPS VERIFIED WITH MD IF SHE WANTS TO CONTINUE IT PT IS POSITIVE FOR DVT AT [facility] , PER MD HOLD IT . DR WRIGHT AT BEDSIDE NOTIFIED PT ON IVF OF D5NS@ 50M/HR WITH BUN 99 , CREATININE OF 2.5 , FC DRAINING WITH ADEQUATE AMANDA CLOUDY COLORED URINE . OFF LEVOPHED @ 0800 . AWARE
[2016-07-30] MEDS: HYDROGEL DRESSING 90 GM TUBE TP SCH (09:31)
[2016-07-30] MEDS: methylPREDNISolone SOD SUCC 125 MG/2ML VIAL IV SCH (09:31)
[2016-07-30] MEDS: Z GUARD REMEDY 2 OZ OINT TP SCH (09:31)
[2016-07-30] MEDS: PANTOPRAZOLE 40 MG VIAL IV SCH (09:32)
[2016-07-30 10:17] LABS: ABG OXYGEN SATURATION 97.5 % (92.0-98.5); ABG PCO2 38.2 mmHg (35.0-45.0); ABG PH 7.376 (7.350-7.450); ABG PO2 130.8 mmHg (75.0-100.0); ABG TOTAL HEMOGLOBIN 9.6 G/dL (13.5-18.0); AaDO2 74.3 mmHg; COHb 0.2 % (0.5-1.5); MetHb 1.3 % (0.0-1.5); PEEP,BG 0 cm H2O; SITE, ABG Right Brachial; VT, ABG 550 mL
[2016-07-30] MEDS ORDERED: UREA 10% -AHA 4% CREAM 57 GM TUBE TP PRN (10:30)
--- NOTE | 2016-07-30 11:00 | NUR ---
CHIEF SERVICE OBSERVER NOTES CALLED RADIOLOGY TO FOLLOW UP PENDING CHEST XRAY DONE @ 0500 , RADIOLOGIST AWARE
[2016-07-30] MEDS ORDERED: LIDOCAINE HCL/PF 1% 30 ML SDV ONE (11:19)
[2016-07-30] MEDS ORDERED: IOHEXOL 50 ML IV ONE (11:20)
[2016-07-30] MEDS ORDERED: HEPARIN SODIUM, PORCINE 1,000 UNIT/ML VIAL ONE (11:24)
[2016-07-30] MEDS ORDERED: MAGNESIUM OXIDE 400 MG TABLET PO ONE (11:30)
[2016-07-30] MEDS ORDERED: FENTANYL PF 100MCG/2ML AMPUL ONE (11:37)
[2016-07-30] MEDS ORDERED: MIDAZOLAM HCL 2 MG/2ML VIAL ONE (11:37)
--- NOTE | 2016-07-30 11:44 | NUR ---
FIELD CROP FARM WORKER NOTES OR TEAM AND DR ACHARYA AT BEDSIDE , NOTIFIED PT STATUS , V/S STABLE AT THIS TIME , OFF LEVOPHED AND DIPRIVAN SINCE 0800 , DR VAUGHN SPOKE WITH SISTER FOR REVERSAL OF CODE STATUS FOR 24 HOURS , SISTER AGREED AND VERBALIZED UNDERSTANDING , MD ORDERED REVERSAL OF CODE STATUS, ORDER CARRIED OUT WITNESS BY FAIZAN LUNA .
--- NOTE | 2016-07-30 12:57 | NUR ---
VTC TECHNICIAN NOTES PT STABLE POST IVC FILTER PLACED BY DR SOLIS @ [facility] , SURGICAL SITE CLEAN DRY AND INTACT , NO SIGNS OF ACTIVE BLEEDING , V/S STABLE , OR NURSE AT BEDSIDE FOR POST OP MONITORING , POST OP ORDERS CARRIED OUT
--- NOTE | 2016-07-30 15:00 | NUR ---
CELL PREPARER NOTES DR LIM AT BEDSIDE , NOTIFIED PT ABG TODAY , TOLERATING CURRENT VENT SETTINGS WITH SPO2 OF 10% , AFEBRILE , OFF LEVOPHED AND DIPRIVAN , AOX3 , NO S.S OF DISTRESS, VERIFIED STEROIDS ORDER PER DR KIM NOTES TO DC STEROIDS , PER MD TITRATE SOLU MEDROL TO 20MG GAYATRI . ORDERS CARRIED OUT
--- NOTE | 2016-07-30 15:00 | NUR ---
PROGRAMS DIRECTOR NOTES RIGHT GROIN IVC FILTER DRESSING CLEAN DRY AND INTACT , NO S/S OF BLEEDING AFTER 2 HOURS POST OP . WILL CONTINUE TO MONITOR
[2016-07-30] MEDS: IV D5/0.45 NACL 1,000 ML IV PRN (16:44)
--- NOTE | 2016-07-30 18:52 | NUR ---
FUR POINTER NOTES CALLED RADIOLOGY SPOKE WITH AMID , FOLLOW UP CHEST XRAY@ 0500 AND ABDOMINAL KUB XRAY , PER RADIOLOGY THEY WILL CALL TO GET IT READ
--- NOTE | 2016-07-30 20:00 | NUR ---
PIPE FITTER FIRE SPRINKLER SYSTEMS DF PT A/OX3 PT COMMUNICATING VIA WRITING. PT WRITES HE WANTS TO GO HOME AND WANTS TO EAT. I EXPLAINED THE PLAN OF CARE TO PT AND VERBALIZES UNDERSTANDING BUT STILL WANTS TO GO HOME AND BE IN HIS OWN BED. PT TOLERATING AC VENT SETTINGS, VSS. FLEXISEAL DRAININGLOOSE DARK STOOL NGT TO LIS SUCTIONING DRAINING MINIMAL AMOUNT OF DARK GREEN FLUID. NAD NOTED.
[2016-07-30] MEDS: DULOXETINE HCL 30 MG CAPSULE.DR PO SCH (21:58)
[2016-07-31] VITALS (40 sets, daily range): BP systolic 89–145; BP diastolic 52–82
[2016-07-31] MEDS: VANCOMYCIN HCL 125 MG/2.5 ML ORAL.SUSP PO SCH ×4 (01:26→18:26)
--- NOTE | 2016-07-31 04:03 | NUR ---
DROP WIRE ALIGNER DF TOTAL AM CARE DONE PT TOLERATING WELL.PT A/OX3 VSS.NAD NOTED. LABS DRAWN AND SENT WITH SUMMONS SERVER AWAITING RESULTS.
[2016-07-31] MEDS: METRONIDAZOLE 500 MG TABLET PO SCH ×3 (05:03→20:14)
[2016-07-31 05:23] LABS: HEMATOCRIT 30 % (39-51); HEMOGLOBIN 9.6 g/dL (13.5-17.5); LYMPHOCYTES # (AUTO) 1.5 /CMM (0.8-4.8); LYMPHOCYTES % (AUTO) 7.3 % (20.0-44.0); MEAN CORPUSCULAR HEMOGLOBIN 27 PG (26.0-33.0); MEAN CORPUSCULAR HGB CONC 33 g/dl (31.0-36.0); MEAN CORPUSCULAR VOLUME 84 fL (80-96); MONOCYTES # (AUTO) 0.1 /CMM (0.1-1.30); MONOCYTES % (AUTO) 0.7 % (2.0-12.0); NEUTROPHILS # (AUTO) 19.3 /CMM (1.8-8.9); PLATELET COUNT (AUTO) 115 /CMM (150-450); RDW COEFFICIENT OF VARIATION 18.6 (11.5-15.0); RED BLOOD CELL COUNT(AUTO) 3.53 MIL/uL (4.5-6.0)
[2016-07-31 05:33] LABS: CALCIUM, SERUM 7.4 mg/dL (8.5-10.1); CREATININE 2.5 mg/dL (0.6-1.3); PHOSPHORUS 4.7 mg/dL (2.5-4.9); POTASSIUM 4.4 mmol/L (3.5-5.1)
--- NOTE | 2016-07-31 07:19 | NUR ---
FILLER AND TRIMMER NOTES RECEIVED PATIENT AOX3 ABLE TO FOLLOWS COMMANDS , ,NOT IN ACUTE DISTRESS , RESPIRATIONS EVEN AND UNLABORED ,SPO2 OF 100% VIA MECHANICAL VENTILATOR SETTINGS ORDERED , ETT 7. IN PLACE , SR 76 ON BEDSIDE MONITOR , L NGT CONNECTED TO LOW INTERMITTENT SUCTION CLAMPED DUE NIGHT RN GAVE MEDICATION , FC DRAINING WELL VIA GRAVITY WITH AMANDA CLOUDY URINE , FLEXI SEAL DRAINING VIA GRAVITY WITH BLACK LIQUID STOOL , ON NEW [place] BED ,RONY PICC LINE TRIPLE LUMEN PATENT AND INTACT WITH GOOD BLOOD RETURN , D5NS @ 50ML/HR INFUSING WELL , ALL NEEDS ATTENDED , BED ON LOW AND LOCKED POSITION, SIDE RAILS X2 CALL LIGHT WITHIN REACH , HOB @ 35 ,WILL CONTINUE TO MONITOR
[2016-07-31] MEDS: BOOST PLUS FOOD-CHOCLATE 237 ML BOX PO SCH ×3 (07:43→17:00)
[2016-07-31] MEDS: PANTOPRAZOLE 40 MG VIAL IV SCH (08:37)
[2016-07-31] MEDS: MEGESTROL ACETATE SUSP 400 MG/10 ML UDC PO SCH (08:37)
[2016-07-31] MEDS: ACIDOPHILUS/BULGARICUS 1 EACH TAB.CHEW PO SCH ×3 (08:37→17:12)
[2016-07-31] MEDS: ASCORBIC ACID 500 MG TABLET PO SCH (08:37)
[2016-07-31] MEDS: Z GUARD REMEDY 2 OZ OINT TP SCH (08:38)
[2016-07-31] MEDS: HYDROGEL DRESSING 90 GM TUBE TP SCH (08:38)
[2016-07-31] MEDS: MULTIVITAMIN LIQ 5 ML UDC PO SCH (08:38)
[2016-07-31] MEDS ORDERED: methylPREDNISolone SOD SUCC 40 MG/ML VIAL IV SCH (09:00)
--- NOTE | 2016-07-31 09:00 | NUR ---
ORAL COMMUNICATION INSTRUCTOR NOTES DR PENA AT BEDSIDE , DISCUSSED PT AM LABS , OFF PRESORS AND SEDATION ,AOX3 , NOT IN ACUTE DISTRESS, V/S STABLE , STILL HAVING BLACK LIQUID DIARRHEA , ILEUS IMPROVING PER ABD EBONIB XRAY , FOLIC ACID IS LOW , MD ORDERED FOLIC ACID 1GM DAILY . ,
[2016-07-31 09:51] LABS: ABG BASE EXCESS -5.5 mmol/L; ABG PH 7.377 (7.350-7.450); AaDO2 127.2 mmHg; COHb 0.6 % (0.5-1.5); MetHb 1.1 % (0.0-1.5); O2Hb 93.4 % (94.0-97.0); PEEP,BG 0 cm H2O; SITE, ABG Right Brachial; VT, ABG 550 mL
--- NOTE | 2016-07-31 12:15 | NUR ---
CLIENT CARE CONSULTANT NOTES DR HAMMER AT BEDSIDE , DISCUSSED PT LATEST LABS FOR TODAY , MD AWARE . NO NEW ORDERS RECEIVED .
--- NOTE | 2016-07-31 12:42 | NUR ---
GREENSMAN NOTES DR LIM AT BEDSIDE , NOTIFIED PT ABG CHEST XRAY AND LABS TODAY , OFF SEDATION , A,XO3 , ABLE TO FOLLOW COMMANDS, V/S STABLE AFEBRILE , NO S/S OF DISTRESS , MD AWARE , PER MD WILL DO BREATHING TRIAL ABG AFTER HOUR ,
--- NOTE | 2016-07-31 13:15 | NUR ---
RECORD SEARCHER NOTES PT ON CPAP MODE ORDERED ,RT AT BEDSIDE FOR VENT CHANGES , WILL CONTINUE TO MONITOR
--- NOTE | 2016-07-31 13:15 | NUR ---
VENT CHANGES MADE PER MD ORDER: CPAP 5/ PS 10, 30% FIO2 Addendum: 07/31/16 at 1316 by LAKSHMI ANGULO RT Amended: Links added.
--- NOTE | 2016-07-31 14:03 | NUR ---
PLACED BACK TO AC MODE PER PT. REQUEST. Addendum: 07/31/16 at 1404 by LAKSHMI ANGULO RT Amended: Links added.
--- NOTE | 2016-07-31 14:03 | NUR ---
PUBLIC HEALTH ASSISTANT NOTES PLACED PT TO BACK TO AC 16 TV 550 FIO2 35 AND PEEP OF 0 , PT WROTE DOWN THAT HE IS HAVING HARD TIME BREATHING WITH SPO2 OF 92% , WILL CONTINUE TO MONITOR , DR LIM AWARE Addendum: 07/31/16 at 1849 by PENG HOPPER RN PER MD TITRATE SOLUMEDROL TO 10 MG FOR TOMORROW
[2016-07-31] MEDS: LORAZEPAM INJ 2 MG/ML VIAL IVP PRN ×2 (14:14→20:36)
[2016-07-31] MEDS: IV D5/0.45 NACL 1,000 ML IV PRN (14:14)
[2016-07-31 15:18] LABS: HEPARIN INDUCED PLT AB 0.304 OD (0.000-0.400)
--- NOTE | 2016-07-31 20:00 | NUR ---
CONTINUOUS PILLOWCASE CUTTER - NOTES - RECEIVED PATIENT ALERT AND ORIENTED, RESPONSIVE TO PAIN STIMULATION , NOT IN ACUTE DISTRESS , RESPIRATIONS EVEN AND UNLABORED ,SPO2 OF 35% VIA MECHANICAL VENTILATOR SETTINGS ORDERED , ETT 7. IN PLACE , SR HR 80S , R NGT CONNECTED TO LOW INTERMITTENT SUCTION DRAINING WITH BROWNISH ORANGE LIQUID OUTPUT , FC DRAINING WELL VIA GRAVITY WITH AMANDA CLOUDY URINE , FLEXI SEAL DRAINING VIA GRAVITY WITH BLACK LIQUID STOOL , ON PROVIDENCE BED ,RONY PICC LINE TRIPLE LUMEN PATENT AND INTACT WITH GOOD BLOOD RETURN , LEVOPHED @ 1MCG/MIN , D5NS @ 50ML/HR INFUSING WELL , ALL NEEDS ATTENDED , BED ON LOW AND LOCKED POSITION, SIDE RAILS X2 CALL LIGHT WITHIN REACH ,WILL CONTINUE TO MONITOR
[2016-07-31] MEDS: DULOXETINE HCL 30 MG CAPSULE.DR PO SCH (21:10)
[2016-08-01] VITALS (37 sets, daily range): BP systolic 81–146; BP diastolic 42–84
[2016-08-01] MEDS: VANCOMYCIN HCL 125 MG/2.5 ML ORAL.SUSP PO SCH ×4 (00:04→19:02)
[2016-08-01] MEDS: METRONIDAZOLE 500 MG TABLET PO SCH ×3 (04:46→20:26)
[2016-08-01 04:57] LABS: BASOPHILS % (AUTO) 0.1 % (0.0-2.0); HEMATOCRIT 30 % (39-51); LYMPHOCYTES # (AUTO) 0.3 /CMM (0.8-4.8); MEAN CORPUSCULAR HEMOGLOBIN 28 PG (26.0-33.0); MEAN CORPUSCULAR HGB CONC 33 g/dl (31.0-36.0); MEAN CORPUSCULAR VOLUME 84 fL (80-96); MONOCYTES # (AUTO) 2.1 /CMM (0.1-1.30); MONOCYTES % (AUTO) 30.2 % (2.0-12.0); NEUTROPHILS # (AUTO) 4.4 /CMM (1.8-8.9); NEUTROPHILS % (AUTO) 64.7 % (43.0-81.0); PLATELET COUNT (AUTO) 112 /CMM (150-450); RDW COEFFICIENT OF VARIATION 18.4 (11.5-15.0); RED BLOOD CELL COUNT(AUTO) 3.59 MIL/uL (4.5-6.0); WHITE BLOOD COUNT (AUTO) 6.9 K/uL (4.3-11.0)
[2016-08-01 05:09] LABS: CALCIUM, SERUM 7.3 mg/dL (8.5-10.1); CREATININE 2.4 mg/dL (0.6-1.3); MAGNESIUM 1.9 mg/dL (1.8-2.4); POTASSIUM 4.1 mmol/L (3.5-5.1)
[2016-08-01] MEDS: IV D5/0.45 NACL 1,000 ML IV PRN (07:03)
[2016-08-01 07:11] LABS: BAND % (MANUAL) 28 % (0.0-5.0); LYMPHOCYTES % (MANUAL) 5 % (16-48); MONOCYTES % (MANUAL) 7 % (0-11.0); NEUTROPHILS % (MANUAL) 60 (42-76)
[2016-08-01 07:12] LABS: ANISOCYTOSIS 1+; PLATELET ESTIMATE DECREASED
--- NOTE | 2016-08-01 07:15 | NUR ---
APPAREL PATTERNMAKER NOTES RECEIVED PATIENT AOX3 ABLE TO FOLLOWS COMMANDS , ,NOT IN ACUTE DISTRESS , RESPIRATIONS EVEN AND UNLABORED ,SPO2 OF 100% VIA MECHANICAL VENTILATOR SETTINGS ORDERED , ETT 7. IN PLACE , SR 98 ON BEDSIDE MONITOR , L NGT CONNECTED TO LOW INTERMITTENT SUCTION DRAINING WITH BROWN LIQUID OUTPUT , FC DRAINING WELL VIA GRAVITY WITH AMANDA CLOUDY URINE , FLEXI SEAL DRAINING VIA GRAVITY WITH BLACK LIQUID STOOL , ON [place] BED ,RONY PICC LINE TRIPLE LUMEN PATENT AND INTACT WITH GOOD BLOOD RETURN , D5NS @ 50ML/HR INFUSING WELL , ALL NEEDS ATTENDED , BED ON LOW AND LOCKED POSITION, SIDE RAILS X2 CALL LIGHT WITHIN REACH , HOB @ 35 ,WILL CONTINUE TO MONITOR .
--- NOTE | 2016-08-01 07:26 | NUR ---
Received orally intubated male pt on mechanical vent. 7.5 ETT secured at 23cm @ the lip. Suctioned thick yellow secretions. Vent is plugged into a red outlet. Alarms are set and audible. Ambu bag is at bedside. Addendum: 08/01/16 at 0729 by CATHY THOMPSON RT Amended: Links added.
[2016-08-01] MEDS: BOOST PLUS FOOD-CHOCLATE 237 ML BOX PO SCH ×3 (07:50→16:16)
[2016-08-01] MEDS ORDERED: methylPREDNISolone SOD SUCC 40 MG/ML VIAL IV SCH (09:00)
[2016-08-01] MEDS: Z GUARD REMEDY 2 OZ OINT TP SCH (09:01)
[2016-08-01] MEDS: ASCORBIC ACID 500 MG TABLET PO SCH (09:01)
[2016-08-01] MEDS: MEGESTROL ACETATE SUSP 400 MG/10 ML UDC PO SCH (09:01)
[2016-08-01] MEDS: FOLIC ACID 1 MG TABLET PO SCH (09:01)
[2016-08-01] MEDS: MULTIVITAMIN LIQ 5 ML UDC PO SCH (09:01)
[2016-08-01] MEDS: HYDROGEL DRESSING 90 GM TUBE TP SCH (09:01)
[2016-08-01] MEDS: PANTOPRAZOLE 40 MG VIAL IV SCH (09:01)
[2016-08-01] MEDS: ACIDOPHILUS/BULGARICUS 1 EACH TAB.CHEW PO SCH ×3 (09:01→16:16)
--- NOTE | 2016-08-01 10:53 | NUR ---
CRIMINAL JUSTICE INSTRUCTOR NOTES DR PENA AT BEDSIDE , DISCUSSED PT LABS , OFF PRESSORS AND SEDATION , BP OF 98/66 , FAILED CPAP WEANING YESTERDAY , STILL HAVING DARK LIQUID DIARRHEA , AFEBRILE . FOLLOWED UP DIETARY RECOMMENDATION FOR TPN AND NGT FEEDING MD AWARE .
--- NOTE | 2016-08-01 12:30 | NUR ---
LOGGING SPECIALIST NOTES DR ALVINO MYERS AT BEDSIDE , DISCUSSED LABORATORY RESULT TODAY , PT ON D5NS @ 50ML/HR , NOTED WITH MINIMAL AMANDA COLORED URINE WITH OUTPUT OF 30ML FOR 3 HOURS , AWARE
--- NOTE | 2016-08-01 13:00 | NUR ---
FOOD HANDLER NOTES DR MONTENEGRO AT BEDSIDE , NOTIFIED PT STATUS , FAILED CPAP WEANING TRIAL YESTERDAY , SPO2 OF 100% TOLERATING CURRENT VENTILATOR SETTINGS , DISCUSSED CHEST XRAY RESULT , PT ON SOLUMEDROL 10MG DAILY , PER MD DISCONTINUE STEROIDS .
--- NOTE | 2016-08-01 15:43 | NUR ---
TUBE TURNER NOTES RECEIVED A CALL FROM DR MALLOY , PT IS SCHEDULED FOR EGD TOMORROW @ 1000 AM , REQUESTED PROCEDURE AND ANESTHESIA CONSENT , NOTIFIED PT ON LOW INTERMITTENT SUCTION DRAINING WITH BROWNISH THICK OUTPUT MINIMAL IN AMOUNT , NO ABDOMINAL DISTENTION , BOWEL SOUNDS ARE HYPO ACTIVE , PER MD OK TO GIVE BOOST ORDERED AND PUT PT NPO POST MIDNIGHT , ORDERS CARRIED OUT
--- NOTE | 2016-08-01 19:35 | NUR ---
PAYROLL REPRESENTATIVE.INITIAL ASSESSMENT.RECEIVED THE PT REST ON THE BED.AWAKE, ORALLY INTUBATED. ETT 7.5CM,[id number],AC 16,TV 550,FIO2 35%.SAT 98%.ORACLE [employer]IONS ARCHITECT SHOWING NSR. IV LT UPPER ARM PICC LINE. IVF D51/2NS 50ML/H. FC PATENT.LT NARE NGT clamped.hob elevated.npo.TURN AND REPOSITION Q2H.WILL CONTINUE TO MONITOR VITALS.
[2016-08-01] MEDS: DULOXETINE HCL 30 MG CAPSULE.DR PO SCH (21:01)
[2016-08-02] VITALS (58 sets, daily range): BP systolic 42–153; BP diastolic 23–98
[2016-08-02] MEDS: IV D5/0.45 NACL 1,000 ML IV PRN (00:19)
[2016-08-02] MEDS: VANCOMYCIN HCL 125 MG/2.5 ML ORAL.SUSP PO SCH ×3 (01:27→14:19)
[2016-08-02] MEDS ORDERED: NOREPINEPHRINE 4 MG/4 ML AMPUL IV ONE (04:31)
[2016-08-02] MEDS ORDERED: IV SET PRIMARY PUMP SET 1 EA INFUS.SET MC ONE ×3 (04:37→11:34)
[2016-08-02] MEDS: NOREPINEPHRINE 8 MG in IV D5W 500 ML IV PRN ×2 (04:41→09:46)
--- NOTE | 2016-08-02 04:50 | NUR ---
STEEL SAMPLER - REC'D PT. W/SBP'S IN THE 40'S. LEVOPHED GTT. MIXED & ADMINISTERED AT 04:40 AM. IMMEDIATELY STARTED GTT. AT 15MCG/MIN. THEN SBP'S WENT INTO THE 60'S, THEN INCREASED TO 30MCG/MIN. SBP'S WENT UP INTO THE 70'S THEN 91/54. PT.IS UNRESPONSIVE,VENTED PUPILS ARE 3/SLUGGISH/EQUAL. AM LABS DRAWN FROM [facility] [place] PICC LINE/ICU PROTOCOL FOLLOWED. PLT RESULT ABNORMAL, SO PRIMARY RN KEKE HAD LAB REDRAW AM LABS PERIPHERALLY. LAB RESULTS PENDING. CONT. POC.
[2016-08-02 05:01] LABS: CALCIUM, SERUM 7.4 mg/dL (8.5-10.1); CREATININE 2.8 mg/dL (0.6-1.3); MAGNESIUM 2.2 mg/dL (1.8-2.4); PHOSPHORUS 7.1 mg/dL (2.5-4.9); POTASSIUM 4.8 mmol/L (3.5-5.1)
--- NOTE | 2016-08-02 05:02 | NUR ---
MARKETING ADMINISTRATIVE ASSISTANT. PT BLOOD PRESSURE 45/35.LEVOPHED STARTED.
--- NOTE | 2016-08-02 05:03 | NUR ---
CENTER MEDICAL DIRECTOR.AM CARE. ORAL CARE,BED BATH GIVEN.LINEN CHANGED.REMAINING SAME VENT SETTING.NGT CLAMPED. IV LT UPPER ARM PICC LINE.IVF S51/2NS 50ML/H,LEVOPHED 10MCG/MIN.FC PATENT.HOB ELEVATED.FLEXA SEAL INTACT. TURN AND REPOSITION Q2H.WILL CONTINUE TO MONITOR VITALS.
[2016-08-02] MEDS ORDERED: DEXTROSE 50%-WATER 50 ML DISP.SYRIN ONE ×2 (05:15→12:56)
[2016-08-02] MEDS: METRONIDAZOLE 500 MG TABLET PO SCH ×2 (05:22→14:17)
--- NOTE | 2016-08-02 05:25 | NUR ---
CARE TRAINER - PT'S AM LABS CALLED TO [facility] - D50 NOT ON PROFILE. PRIMARY/AND/CHARGE ORDERED D50 & ADMINISTERED STAT. LABORATORY PHONED W/GLUCOSE AT #45 & BUN AT #108. AM LABS DRAWN FROM LUE PICC LINE. 10CC BLOOD RETURN WASTED BEFORE BLOOD PLACED IN TUBES BY TRANSPORTATION DIRECTOR-MYSELF. PERIPHERAL LABS ARE BEING DRAWN & SENT AT PRESENT MOMENT. CONT. POC.
--- NOTE | 2016-08-02 05:26 | NUR ---
PRINT FINISHER,LAB CALLED FOR BLOOD SUGAR 45. ACCU CHECK WAS 23 D50% IVP GIVEN.WILL CONTINUE TO MONITOR
[2016-08-02] MEDS ORDERED: DEXTROSE 50%-WATER 50 ML DISP.SYRIN IVP ONE (05:30)
--- NOTE | 2016-08-02 05:31 | NUR ---
PIPEFITTER HELPER.PT IS NPO.FROM 0000. TODAY PEG PLACEMENT
[2016-08-02 05:38] LABS: BASOPHILS % (AUTO) 0.2 % (0.0-2.0); EOSINOPHILS % (AUTO) 0.2 % (0.0-6.0); HEMATOCRIT 31 % (39-51); HEMOGLOBIN 9.8 g/dL (13.5-17.5); LYMPHOCYTES # (AUTO) 0.2 /CMM (0.8-4.8); LYMPHOCYTES % (AUTO) 10.7 % (20.0-44.0); MEAN CORPUSCULAR HEMOGLOBIN 28 PG (26.0-33.0); MEAN CORPUSCULAR HGB CONC 32 g/dl (31.0-36.0); MEAN CORPUSCULAR VOLUME 86 fL (80-96); MONOCYTES % (AUTO) 1.2 % (2.0-12.0); NEUTROPHILS % (AUTO) 87.7 % (43.0-81.0); RDW COEFFICIENT OF VARIATION 18.7 (11.5-15.0); RED BLOOD CELL COUNT(AUTO) 3.58 MIL/uL (4.5-6.0); WHITE BLOOD COUNT (AUTO) 2.3 K/uL (4.3-11.0)
[2016-08-02 05:40] LABS: PLATELET COUNT (AUTO) 41 /CMM (150-450)
[2016-08-02 06:03] LABS: BAND % (MANUAL) 28 % (0.0-5.0); BASOPHILS % (MANUAL) 0 % (0.0-2.0); EOSINOPHILS % (MANUAL) 0 % (0-4); LYMPHOCYTES % (MANUAL) 23 % (16-48); METAMYELOCYTES % 1 % (0-0); MONOCYTES % (MANUAL) 21 % (0-11.0); NEUTROPHILS % (MANUAL) 27 (42-76)
[2016-08-02 06:04] LABS: ANISOCYTOSIS 1+; PLATELET ESTIMATE DECREASED
--- NOTE | 2016-08-02 07:25 | NUR ---
DR ALEXANDRE HERE 2 UNITS PLATELETS ORDERED. FOR PLATELET COUNT 41.
--- NOTE | 2016-08-02 07:30 | NUR ---
PLATELET COUNT 41. PT IN LEVO [address] GRADY NOTIFIED. HE WILL BE IN TO SEE PT.
[2016-08-02] MEDS: BOOST PLUS FOOD-CHOCLATE 237 ML BOX PO SCH (08:00)
--- NOTE | 2016-08-02 08:12 | NUR ---
WOUND CARE CONSULT: PT SEEN FOR LEFT CHEEK ABRASION. RECOMMENDATIONS MADE AND DISCUSSED WITH NURSING STAFF. PT HAS GENERALIZED EDEMA AND MULTIPLE WOUNDS, PRESENT ON ADMISSION. PT FOLLOWED BY DR CUELLAR. PT ON ALONDRA ISOFLEX LOW AIRLOSS BED. PT TO BE TURNED AND REPOSITIONED EVERY 2 HRS PT CONDITION PERMITS, HEELS FLOATED. PT IS ON VENTILATOR AND MULTIPLE CO-MORBIDITIES NOTED. PT TO HAVE PEG PLACEMENT TODAY. WILL SEE PRN. MARIE IN AGREEMENT WITH PLAN OF CARE. Addendum: 08/02/16 at 0814 by TESHA BROWN WNDNU Amended: Links added.
--- NOTE | 2016-08-02 08:30 | NUR ---
BP IN 80TH, LEVOPHED INCREASED TO 30 MICS.
[2016-08-02] MEDS ORDERED: IV NS 0.9% 500 ML IV ONE (08:58)
[2016-08-02] MEDS: BLOOD SUGAR DIAGNOSTIC 1 EACH STRIP IN SCH ×2 (09:00→13:09)
[2016-08-02] MEDS: HYDROGEL DRESSING 90 GM TUBE TP SCH (09:00)
[2016-08-02] MEDS ORDERED: NEOMY SULF/BACITRAC ZN/POLY 15 GM TUBE TP SCH (09:00)
--- NOTE | 2016-08-02 09:00 | NUR ---
BOLUS NS INITIATED, CVP MONITORING SET UP, INATAL CVP READING 5.
--- NOTE | 2016-08-02 09:00 | NUR ---
PER DR YSABEL HASKINS TO D/C PLATELETS ORDER.
--- NOTE | 2016-08-02 09:30 | NUR ---
DR. ACHARYA IS HERE DUE TO LOW PALLETS AND LOW BP DESPITE LEVO MAX DOSE GT PLACEMENT IS CANCELED.
[2016-08-02] MEDS ORDERED: NOREPINEPHRINE 16 MG in IV D5W 500 ML IV PRN ×3 (10:00→10:30)
[2016-08-02] MEDS ORDERED: IV NS 0.9% 1,000 ML BAG IV PRN (10:00)
[2016-08-02] MEDS ORDERED: IV NS 0.9% 1,000 ML IV ONE (10:30)
[2016-08-02] MEDS ORDERED: IV NS 0.9% 1,000 ML BAG IV ONE (10:45)
--- NOTE | 2016-08-02 10:45 | NUR ---
SECOND BOLUS BOLUS INITIATED, BP IMPROVED SLIGHTLY. NOW 99/71
[2016-08-02] MEDS: ACIDOPHILUS/BULGARICUS 1 EACH TAB.CHEW PO SCH ×2 (10:58→14:17)
[2016-08-02] MEDS: PANTOPRAZOLE 40 MG VIAL IV SCH (10:59)
[2016-08-02] MEDS: MEGESTROL ACETATE SUSP 400 MG/10 ML UDC PO SCH (10:59)
[2016-08-02] MEDS: FOLIC ACID 1 MG TABLET PO SCH (10:59)
[2016-08-02] MEDS: MULTIVITAMIN LIQ 5 ML UDC PO SCH (10:59)
[2016-08-02] MEDS: ASCORBIC ACID 500 MG TABLET PO SCH (10:59)
[2016-08-02] MEDS ORDERED: ALBUMIN 25% 50 GM in PREMIX 1 EA IV ONE (11:00)
[2016-08-02] MEDS ORDERED: ALBUMIN 25% 12.5 GM/50 ML BOTTLE IV ONE (11:00)
[2016-08-02] MEDS ORDERED: GLYTROL 1,000 ML BAG GT PRN (11:00)
[2016-08-02] MEDS: Z GUARD REMEDY 2 OZ OINT TP SCH (11:01)
[2016-08-02 11:57] LABS: LACTIC ACID 8.1 mmol/L (0.4-2.0)
[2016-08-02 14:08] LABS: BILIRUBIN,DIRECT 0.4 mg/dL (0.0-0.2); BILIRUBIN,TOTAL 1.1 mg/dL (0.2-1.0)
[2016-08-02 14:09] LABS: CALCIUM, SERUM 6.7 mg/dL (8.5-10.1); CREATININE 2.8 mg/dL (0.6-1.3); POTASSIUM 5.6 mmol/L (3.5-5.1)
[2016-08-02 14:47] LABS: LACTIC ACID REFLEX 9.8 mmol/L (0.4-1.9)
[2016-08-02] MEDS ORDERED: MORPHINE SULFATE PF DRIP 250 MG in IV D5W 240 ML IV PRN (15:30)
[2016-08-02] MEDS ORDERED: LORAZEPAM INJ 2 MG/ML VIAL IV PRN (15:30)
--- NOTE | 2016-08-02 15:30 | NUR ---
DELANO BURLESON NP DISCUSSED THE PT PROGNOSIS WITH PT'S SISTER. PT NOW DNR AND WILL BE INITIATED ON PALLIATIVE CARE.
--- NOTE | 2016-08-02 15:51 | NUR ---
LUCIO met with pt's caregiver Alexei Ferguson and gave him list of cemeteries. Alexei informed SW that pt. is on palliative care and pt's family is currently wanting information on cemeteries.
[2016-08-02] MEDS ORDERED: MORPHINE SULFATE INJ 2 MG/ML DISP.SYRIN IV ONE (16:00)
--- NOTE | 2016-08-02 16:05 | NUR ---
RN NOTE PT DNR ON COMFORT CARE. FOUND PATIENT AYSTOLIC, APNEIC AND AREFLEXIVE. PUPILS FIXED AND DILATED. PT PRONOUNCED AT 1605
--- NOTE | 2016-08-02 18:45 | NUR ---
[facility] WAS PROVIDED ADDITIONAL INFO AND THE BODY IS NOT SUITABLE FRO DONATION.
== END 2016-08-02 16:40 | disposition expired | DRG 853 ==
LOC: ER 11:21 → MED 13:28 → TELE 07-21 20:55 → MED 07-23 08:54 → ICU 07-26 18:24
PROVIDERS: ADMIT Internal Medicine; ATTEND Internal Medicine
PROC: 05H633Z Insertion of Infusion Device into Left Subclavian Vein, Percutaneous Approach (ICD-10-PCS; 2016-07-20)
PROC: 5A09357 Assistance with Respiratory Ventilation, Less than 24 Consecutive Hours, Continuous Positive Airway Pressure (ICD-10-PCS; 2016-07-26)
PROC: 5A1955Z Respiratory Ventilation, Greater than 96 Consecutive Hours (ICD-10-PCS; principal; 2016-07-27)
PROC: 0BH17EZ Insertion of Endotracheal Airway into Trachea, Via Natural or Artificial Opening (ICD-10-PCS; 2016-07-27)
PROC: 02HV33Z Insertion of Infusion Device into Superior Vena Cava, Percutaneous Approach (ICD-10-PCS; 2016-07-27)
PROC: B548ZZA Ultrasonography of Superior Vena Cava, Guidance (ICD-10-PCS; 2016-07-27)
PROC: 30233N1 Transfusion of Nonautologous Red Blood Cells into Peripheral Vein, Percutaneous Approach (ICD-10-PCS; 2016-07-28)
PROC: 0DB58ZX Excision of Esophagus, Via Natural or Artificial Opening Endoscopic, Diagnostic (ICD-10-PCS; 2016-07-29)
PROC: 30233K1 Transfusion of Nonautologous Frozen Plasma into Peripheral Vein, Percutaneous Approach (ICD-10-PCS; 2016-07-29)
PROC: 30233M1 Transfusion of Nonautologous Plasma Cryoprecipitate into Peripheral Vein, Percutaneous Approach (ICD-10-PCS; 2016-07-29)
PROC: 06H03DZ Insertion of Intraluminal Device into Inferior Vena Cava, Percutaneous Approach (ICD-10-PCS; 2016-07-30)
DX: A41.9 Sepsis, unspecified organism (principal); E43 Unspecified severe protein-calorie malnutrition; N17.0 Acute kidney failure with tubular necrosis; J96.01 Acute respiratory failure with hypoxia; R65.21 Severe sepsis with septic shock; J69.0 Pneumonitis due to inhalation of food and vomit; J96.02 Acute respiratory failure with hypercapnia; L89.313 Pressure ulcer of right buttock, stage 3; L89.153 Pressure ulcer of sacral region, stage 3; K22.11 Ulcer of esophagus with bleeding; D65 Disseminated intravascular coagulation [defibrination syndrome]; I26.99 Other pulmonary embolism without acute cor pulmonale; K92.2 Gastrointestinal hemorrhage, unspecified; A04.7 Enterocolitis due to Clostridium difficile; F32.1 Major depressive disorder, single episode, moderate; N18.4 Chronic kidney disease, stage 4 (severe); Z68.1 Body mass index [BMI] 19.9 or less, adult; E87.2 Acidosis; R64 Cachexia; I82.412 Acute embolism and thrombosis of left femoral vein; D62 Acute posthemorrhagic anemia; I82.491 Acute embolism and thrombosis of other specified deep vein of right lower extremity; D61.818 Other pancytopenia; J44.1 Chronic obstructive pulmonary disease with (acute) exacerbation; J90 Pleural effusion, not elsewhere classified; R18.8 Other ascites; Z51.5 Encounter for palliative care; A41.4 Sepsis due to anaerobes; D64.9 Anemia, unspecified; J44.9 Chronic obstructive pulmonary disease, unspecified; E86.0 Dehydration; D50.0 Iron deficiency anemia secondary to blood loss (chronic); E87.5 Hyperkalemia; I12.9 Hypertensive chronic kidney disease with stage 1 through stage 4 chronic kidney disease, or unspecified chronic kidney disease; Z66 Do not resuscitate; Z86.718 Personal history of other venous thrombosis and embolism; Z87.891 Personal history of nicotine dependence; E88.09 Other disorders of plasma-protein metabolism, not elsewhere classified; M62.50 Muscle wasting and atrophy, not elsewhere classified, unspecified site; D69.2 Other nonthrombocytopenic purpura; L85.3 Xerosis cutis; L89.620 Pressure ulcer of left heel, unstageable; E05.90 Thyrotoxicosis, unspecified without thyrotoxic crisis or storm; L89.621 Pressure ulcer of left heel, stage 1; L89.611 Pressure ulcer of right heel, stage 1; D72.825 Bandemia; Z98.890 Other specified postprocedural states; E53.8 Deficiency of other specified B group vitamins; E83.51 Hypocalcemia; K31.9 Disease of stomach and duodenum, unspecified; K80.20 Calculus of gallbladder without cholecystitis without obstruction; L98.9 Disorder of the skin and subcutaneous tissue, unspecified; Z96.643 Presence of artificial hip joint, bilateral; E03.9 Hypothyroidism, unspecified; G89.29 Other chronic pain
CPT/HCPCS: 31720; 36415; 36569; 36600; 71010-TC; 74000-TC; 80048-TC; 80053-TC; 80076-TC; 81000-TC; 82040-TC; 82247-TC; 82248-TC; 82272-TC; 82306; 82378; 82570-TC; 82728-TC; 82746; 82803-TC; 82962-TC; 83010; 83540-TC; 83605-TC; 83615-TC; 83735-TC; 84100-TC; 84153-TC; 84154-TC; 84155; 84165; 84300-TC; 84443-TC; 84484-TC; 84550-TC; 85025-TC; 85027-TC; 85045-TC; 85385-TC; 85396; 85610-TC; 85652-TC; 85730-TC; 86022; 86850-TC; 86921-TC; 87040-TC; 87045-TC; 87081-TC; 87086-TC; 88305-TC; 88312-TC; 88342; 89055; 92611-TC; 93970-TC; 94002-TC; 94003-TC; 94640-TC; 94660; 94760-TC; 94799-TC; 97001-TC; 97110-TC; A4216; A4217; A4606; A6248; A6402; C1751; C1769; C1880; C9113; J0171; J0610; J0696; J1644; J1815; J1885; J1940; J2060; J2250; J2270; J2274; J2405; J2543; J2765; J2920; J2930; J3010; J3475; J3490; J7030; J7040; J7042; J7050; J7060; J7070; P9012; P9016-BL; P9017-BL; P9047; Q9967; Z7610